=== PATIENT | female | born 1970 | race Caucasian/White ===

== ENCOUNTER → 2017-12-20 12:49 | Outpatient (REF) | payer MEDICAID, SELFPAY ==
[2017-12-20 14:05] LABS: Bilirubin Negative (Negative); Blood Negative (Negative); Clarity Sl Cloudy; Glucose Negative (Negative); Ketones Negative (Negative); Leukocyte Esterase Trace (Negative); Nitrite Negative (Negative); Urobilinogen 0.2 EU/dL (Up TO 0.2)
[2017-12-20 14:22] LABS: WBC 0-2 HPF (0-5)
[2017-12-20 14:23] LABS: Bacteria Few HPF (Negative); Casts Negative LPF (Negative); Crystals Negative HPF (Negative); Epithelial Cells Many HPF (Negative); Mucus Negative (Negative); Other Cells Few Transitional (Negative)
[2017-12-20 14:24] LABS: C & S Indicated? No/Sq. Contamination
== END ==
LOC: LBN 12:49
PROVIDERS: PCP Family Medicine; Visit Provider Family Medicine
DX: N39.41 Urge incontinence (principal)
CPT/HCPCS: 81003; 81015

== ENCOUNTER 2017-12-23 13:24 | Outpatient (RCR) | payer MEDICAID, SELFPAY ==
--- NOTE | 2017-12-18 08:45 | NT_ITS ---
12/18/17 Phoned dept to cancel today's PT appt. Has to work. Jazmine Alvarado, IMPORT DISPATCHER
--- NOTE | 2017-12-23 14:12 | PTTR_ITS ---
DATE: 12/23/17 SUBJECTIVE: Nelda states that today is a good day because I haven't had to take any Ibuprofen. She states that she is not experiencing back pain symptoms as frequently at this point. OBJECTIVE: Therapeutic procedures ([id number]). * [X] See flow sheet: Patient completed a core stabilization program, as per flow sheet. Patient was able to tolerate a slight progression in her program today, modifications made to reps are noted on flow sheet. Patient ended ther ex program on the treadmill x10 minutes via [facility]. Patient was then seem by primary therapist, Darius Meza DPT. Please see his note for specifics. * [X] Provided skilled instruction in proper exercise performance * [X] Provided skilled manual cues to facilitate proper muscle recruitment and/or movement pattern: cuing for core activation throughout session, as well as posture correction for proper exercise performance. Direct treatment time: 20 minutes Total treatment time: 30 minutes
--- NOTE | 2017-12-23 15:55 | PTTR_ITS ---
DATE: 12/23/17 SUBJECTIVE: Nelda states the integrated dry needling is very helpful with her symptoms. Has cut her Ibuprofen use about 75%. Is noting better tolerance to standing at work, only needing sporadic Ibuprofen toward the end of her shift. Made no complaints with orthotic use. Is complaining of some incontinence issues that appear to be urge incontinence. We discussed getting a referral for a consultation with SHANE Joseph. OBJECTIVE: Manual therapy: ([id number]). Lumbopelvic mobs, single and double knee to chest, bent knee fall outs as well as PA mobs to the lumbar spine. Integrated dry needling. The patient gave verbal consent for dry needling today. Homeostatic points used today: bilateral superior cluneal and inferior gluteal with 3 and posterior cutaneus of L5 with 2. Para vertebral points used today L3/4 2. Symptomatic points: bilateral glute medius and piriformis with 3 Also, received estim from L3 to L5 para vertebrals bilaterally x8 minutes. She also completed postural stabilization strengthening with the TREE [employer]. For details see her note. Direct treatment time: 15 min. Total treatment time: 30 min. Assessment: Subjective comments of improvements regarding a decrease in her symptoms of pain. Plan: Continues as indicated above progressing her stabilization to tolerance. MM/gc
== END 2018-01-17 23:59 | disposition home or self-care (01) ==
LOC: PT 13:24
PROVIDERS: PCP Family Medicine; Referring Provider Family Medicine; Visit Provider Family Medicine
DX: M54.5 Low back pain (principal); M51.16 Intervertebral disc disorders with radiculopathy, lumbar region; Z47.89 Encounter for other orthopedic aftercare
CPT/HCPCS: 97110; 97140

== ENCOUNTER → 2017-12-24 11:15 | Outpatient (REF) | payer MEDICAID, SELFPAY ==
--- NOTE | 2017-12-24 10:45 | PAPFT_PTH ---
PATIENT: Nelda Robison LOC: [facility] U#:[id number] AGE/SX: 54/F ROOM: RE12/24/[address]: Anca Robledo MD : 1970 BED: DIS: SPEC #: [id number] RECD: 12/24/17 12:52 STATUS: BARBARA REElen #: [id number] AMADEO: 12/24/17 10:[address]: Anca Robledo DEPT: [facility] Cytology RECD BY: Ale Esparza ENTERED: 12/24/17 12:53 SP TYPE: PAPFT OTHR DR: Saba Christopher MD, DC Tissues: 1 - CX/ENDOCX FOR PAP SMEARS Procedures: PAP THIN PREP/UVM Screening HPV DNA PROBE Comments: [id number]
== END ==
LOC: LBN 11:15
PROVIDERS: PCP Family Medicine; Visit Provider Obstetrics & Gynecology
DX: Z12.4 Encounter for screening for malignant neoplasm of cervix (principal); Z11.51 Encounter for screening for human papillomavirus (HPV)
CPT/HCPCS: 88142; 87624

== ENCOUNTER 2018-02-02 19:31 | Emergency (ER) | payer MEDICAID, SELFPAY ==
[2018-02-02] VITALS (34 sets, daily range): BP systolic 91–139; BP diastolic 53–93; PULSE 65–108; RESP 11–24; TEMP 36.5; O2SAT 90–96
[2018-02-02] MEDS: methylPREDNISolone SUCC 125 MG VIAL IVP (19:46)
[2018-02-02] MEDS: Normal Saline 1,000 ML 1000 ML IV (19:55)
--- NOTE | 2018-02-02 22:26 | ED.GENADUL_ITS ---
Discharge Plan Disposition Patient Disposition: HOME Discharge Details Chief Complaint: Allergic Clinical Impression: Anaphylactic reaction, Hymenoptera allergy Primary Care Provider: Saba Christopher ED Provider: Edouard Mohamud Home Meds and New Rx's Prescriptions: New prednisone 20 mg tablet 40 mg PO DAILY Qty: 8 RF: 0 epinephrine [EpiPen] 0.3 mg/0.3 mL auto-injector 0.3 mg IM ONCE Qty: 1 RF: 0 Continue albuterol sulfate 90 mcg/actuation HFA aerosol inhaler 2 puff IH Q6H PRNRF: 0 citalopram 20 mg tablet 20 mg PO DAILY RF: 0 estradiol 10 mcg insert 10 mcg VG .COMPLEX RF: 0 famotidine 40 mg tablet 40 mg PO DAILY RF: 0 fluticasone [Flovent HFA] 110 mcg/actuation HFA aerosol inhaler 2 puff IH HS RF: 0 ibuprofen 600 mg tablet 600 mg PO TID PRNRF: 0 nystatin 100,000 unit/gram powder 1 applic TP BID PRNRF: 0 omeprazole 40 mg capsule,delayed release(DR/EC) 40 mg PO DAILY RF: 0 oxybutynin chloride 10 mg tablet extended release 24hr 10 mg PO DAILY RF: 0 triamcinolone acetonide 0.1 % cream 1 applic TP BID PRNRF: 0 acyclovir 800 mg tablet 800 mg PO .COMPLEX Qty: 35 RF: 0 Discharge Instructions Instructions: Insect Bite or Sting (ED), Anaphylaxis (ED) Additional Instructions: Please take Benadryl 25 mg every 8 hours for the next 3 days. Take prednisone as prescribed. Avoid exposure to bees or wasps. Please contact your primary care physician to arrange follow-up. Return to the ER for any worsening or new concerning symptoms. Referrals: Saba Christopher MD, [place] [Primary Care Provider] - Discharge Data Discharge Date/Time-TO BE ENTERED AT DEPARTURE: 02/02/18 22:59 Medical Decision Making MDM Narrative Medical decision making narrative: 47-year-old female presents with anaphylactic reaction hymenoptera sting. Diffuse body hives, nausea,, lip swelling and scratchy sensation in her throat on arrival per Patient was assessed immediately on arrival. She was administered epinephrine intramuscularly, Solu-Medrol IV, Pepcid IV, and Benadryl IV. She was given IV fluid bolus. Patient was reassessed multiple times. Patient had significant clinical improvement and resolution of symptoms. Lips no longer swollen and no respiratory symptoms. 22:15 -patient reassessed and has remained stable now. She is requesting discharge. Usual and customary discharge instructions were provided for anaphylaxis. Patient was prescribed an EpiPen for future anaphylactic reaction , she is also prescribed a burst of prednisone and advised to take Benadryl over the next few days. She understands she should return for any recurrent or worsening symptoms. HPI - General Adult General Mode of arrival: ambulatory . Date/Time Provider Initiated Documentation: 02/02/18 19:39 . Limitations to Documentation: no limitations . Information obtained by: patient . HPI Narrative: 47-year-old female presents with chief complaint of allergic reaction. Patient notes that about an hour prior to arrival she was stung by multiple wasps. She was stung on her legs, buttock and arms. She has developed severe hives on her legs and arms. She has swelling of her lips and the sensation of scratchiness in her throat. She denies shortness of breath or wheeze. She does have some nausea. Symptoms are severe with no modifiers. Related Data Home Medications Medication Instructions Recorded Confirmed albuterol sulfate HFA 90 2 puff IH Q6H PRN 01/28/18 02/06/18 mcg/actuation aerosol inhaler citalopram 20 mg tablet 20 mg PO DAILY 01/28/18 02/06/18 estradiol 10 mcg vaginal insert 10 mcg VG .COMPLEX 01/28/18 02/06/18 famotidine 40 mg tablet 40 mg PO DAILY 01/28/18 02/06/18 fluticasone 110 mcg/actuation HFA 2 puff IH HS gm 01/28/18 02/06/18 aerosol inhaler ibuprofen 600 mg tablet 600 mg PO TID PRN 01/28/18 02/06/18 nystatin 100,000 unit/gram topical 1 applic TP BID PRN 01/28/18 02/06/18 powder omeprazole 40 mg capsule,delayed 40 mg PO DAILY 01/28/18 02/06/18 release oxybutynin chloride ER 10 mg 10 mg PO DAILY 01/28/18 02/06/18 tablet,extended release 24 hr triamcinolone acetonide 0.1 % 1 applic TP BID PRN 01/28/18 02/06/18 topical cream Previous Rx's Medication Instructions Recorded acyclovir 800 mg tablet 800 mg PO .COMPLEX #35 tab 01/30/18 epinephrine [EpiPen] 0.3 mg IM ONCE #1 each 02/02/18 prednisone 40 mg PO DAILY #8 tab 02/02/18 Allergies Allergy/AdvReac Type Severity Reaction Status Date / Time buspirone HCl [From BuSpar] AdvReac HEADACHES Verified 02/06/18 09:15 oxycodone AdvReac SYNCOPE Verified 02/06/18 09:15 General Stated Complaint: Allergic CALE: 2 Review of Systems Review of Systems All systems reviewed & are unremarkable except as noted in HPI and below ENT Reports lip swelling Cardiovascular Denies dyspnea Respiratory Denies dyspnea and Denies wheezing Gastrointestinal Reports nausea Allergic/Immunologic Reports urticaria, Reports lip swelling and Denies wheezing PFS Social History Smoking/Tobacco Use Status: Never Surgical History EGD - MAC (~05/2007) Ligation of fallopian tube Exam Const General: cooperative and no acute distress Orientation: alert and awake HENMT Head: normocephalic and atraumatic Mouth: tongue normal, moist mucous membranes, no muffled voice and other Eyes Conjunctivae: conjunctivae normal EOM: EOM intact bilaterally Neck Neck: normal visual inspection, trachea midline and No JVD Chest Chest: no tenderness Resp Effort & Inspection: normal respiratory effort Auscultation: clear to auscultation bilaterally, no rales, no rhonchi and no wheezes Cardio Rate: tachycardic Rhythm: regular rhythm Heart Sounds: no gallops, no murmurs and no rubs GI Palpation: soft and nontender Auscultation: normal bowel sounds Skin General skin exam: dry skin Rashes: rashes noted (Urticaria on her arms and legs bilaterally) Other: warm Neuro General: alert, awake, tone normal and moves all extremities Extrem General: no calf tenderness bilaterally and no pedal edema Psych Appearance: grossly normal Mental Status: mental status grossly normal Affect: normal affect Course Vital Signs Temperature 36.5 C 02/02/18 19:37 Pulse 108 H 02/02/18 19:37 Respiratory Rate 20 02/02/18 19:37 Blood Pressure 139/93 H 02/02/18 19:37 Pulse Oximetry 96 02/02/18 19:37 Temperature 36.5 C 02/02/18 19:37 Pulse 108 H 02/02/18 19:37 Respiratory Rate 20 02/02/18 19:37 Blood Pressure 139/93 H 02/02/18 19:37 Pulse Oximetry 96 02/02/18 19:37 Critical Care Time Critical Care Time: Yes Total Critical Care Time: 60 Attestation: I spent greater than 60 minutes addressing this patient's immediate life threats.
== END 2018-02-02 22:59 | disposition home or self-care (01) ==
PROVIDERS: Emergency Provider Student in an Organized Health Care Education/Training Program; PCP Family Medicine
DX: T63.461A Toxic effect of venom of wasps, accidental (unintentional), initial encounter (principal); T78.2XXA Anaphylactic shock, unspecified, initial encounter; L50.0 Allergic urticaria; R11.0 Nausea; R60.0 Localized edema; R09.89 Other specified symptoms and signs involving the circulatory and respiratory systems
CPT/HCPCS: 80048; 96361; 96372; 99285; J0171; J1200; J2930

== ENCOUNTER 2018-02-06 10:12 | Outpatient (REF) | payer MEDICAID, SELFPAY ==
--- NOTE | 2018-02-06 09:30 | CER_PTH ---
PATIENT: Nelda Robison LOC: [facility] U#:[id number] AGE/SX: 47/F ROOM: RE02/06/[address]: Dona Pryor : 1970 BED: DIS: 02/06/2018 SPEC #: [id number] RECD: 02/06/18 12:25 STATUS: BARBARA REYES #: [id number] AMADEO: 02/06/18 09:[address]: Dona Pryor DEPT: Surgical Specimen RECD BY: Ale Esparza ENTERED: 02/06/18 12:27 SP TYPE: CER OTHR DR: Saba Christopher MD, DC Tissues: 1 - CERVICAL BIOPSY 2 - CERVICAL BIOPSY Procedures: GROSS AND MICRO LEVEL 4 Comments: [id number]
== END 2018-02-06 10:32 ==
LOC: LBN 10:12
PROVIDERS: PCP Family Medicine; Visit Provider Obstetrics & Gynecology
DX: N88.8 Other specified noninflammatory disorders of cervix uteri (principal); N72 Inflammatory disease of cervix uteri; R87.610 Atypical squamous cells of undetermined significance on cytologic smear of cervix (ASC-US)
CPT/HCPCS: 88305

== ENCOUNTER 2018-04-28 11:21 | Outpatient (REF) | payer MEDICAID, SELFPAY | END 2018-04-28 11:41 | LOC: LBN 11:21 | PROVIDERS: PCP Family Medicine; Visit Provider Family Medicine | DX: R19.7 Diarrhea, unspecified (principal) | CPT/HCPCS: 87329; 87324 ==

== ENCOUNTER 2019-02-18 19:18 | Emergency (ER) | payer BC, MEDICAID, SELFPAY ==
[2019-02-18] VITALS (15 sets, daily range): BP systolic 102–155; BP diastolic 69–94; PULSE 68–80; RESP 14–20; TEMP 36.5; O2SAT 94–98
--- NOTE | 2019-02-18 19:32 | ED.GENADUL_ITS ---
Discharge Plan Disposition Patient Disposition: HOME Condition: Fair Discharge Details Chief Complaint: Chest Pain Clinical Impression: Atypical chest pain, Grieving, Anxiety, Dehydration Primary Care Provider: Saba Christopher ED Provider: Nicolette Bello Home Meds and New Rx's Prescriptions: Continued albuterol sulfate 90 mcg/actuation HFA aerosol inhaler 2 puff IH Q6H PRNRF: 0 nystatin 100,000 unit/gram powder 1 applic TP BID PRNRF: 0 Flovent HFA 110 mcg/actuation HFA aerosol inhaler 2 puff IH HS Qty: 12 RF: 3 epinephrine [EpiPen] 0.3 mg/0.3 mL auto-injector 0.3 mg IM ONCE Qty: 1 RF: 0 famotidine 40 mg tablet 40 mg PO DAILY Qty: 30 RF: 6 omeprazole 40 mg capsule,delayed release(DR/EC) 40 mg PO DAILY Qty: 90 RF: 4 estradiol 10 mcg insert 10 mcg VG .COMPLEX Qty: 24 RF: 5 triamcinolone acetonide 0.5 % cream 1 applic TP BID PRN (Reason: rash on abdomen) Qty: 80 RF: 0 acyclovir 800 mg tablet 800 mg PO .COMPLEX Qty: 35 RF: 0 lorazepam 1 mg tablet 1 mg PO QHS PRN (Reason: sleep) Qty: 10 RF: 0 ibuprofen 600 mg tablet 600 mg PO TID PRN (Reason: pain) Qty: 90 RF: 0 citalopram 20 mg tablet 20 mg PO DAILY Qty: 90 RF: 0 oxybutynin chloride 5 mg Tablet 5 mg PO DAILY RF: 0 Discharge Instructions Instructions: Chest Pain (ED), Anxiety (ED) Additional Instructions: Encourage hydration.. You will need follow-up with your primary care within the next week. Please discuss your decreased kidney function.. Labs and imaging are reassuring today. Try to slow down your breathing when you begin having these attacks, breathing through your nose and out through your mouth. If you develop increased chest pain, inability to stay hydrated, shortness of breath or the new/worsening symptoms please seek care urgently once again.. Stand Alone Forms: Work Release Referrals: Saba Christopher MD, [place] [Primary Care Provider] - Discharge Data Discharge Date/Time-TO BE ENTERED AT DEPARTURE: 02/18/19 21:57 Medical Decision Making <Juan Francisco Reilly DO - Last Filed: 02/18/19 19:42> EKG 19: 32 Rate 80, intervals normal, sinus rhythm, no significant ST elevation or depression, no significant T wave inversions, no evidence of STEMI <ZOË Yeager - Last Filed: 02/20/19 09:12> Patient is a 48-year-old female with history of depression, sciatica, neuro, hyperlipidemia, hiatal hernia, GERD, anemia. She is presenting today, accompanied by her daughter, with chief complaint of intermittent episodes of chest heaviness, diaphoresis, shortness of breath. States these typically come on during periods of rest such as prior to going to sleep at night, when standing in line at a store. She does correlate this with the recent loss of her significant other. She denies any chest pain this time. Does find that typically when she is interactive with other people, she does not have same symptoms. She does report that she is a good support team during her grieving process. Has been in touch with her primary care. However, as the symptoms have persisted, she was advised to seek care in the emergency department at this time. She reports a low level of queasiness. No abdominal pain. Denies any recent travel. No fevers or chills. Pain in the chest does not radiate when this does occur. She reports that this typically lasts for 30 minutes or so. Does not have a defining act that helps to have symptoms subside. Her history is most concerning for possible psychologic etiology such as panic attacks, anxiety during her grieving process. She does report that she has been feeling anxious and agrees to anxiety lytic at this time. Her exam is reassuring with good cardiovascular respiratory exam. She denies any suicidal or homicidal ideation. While her symptoms are most likely a nonacute cardiac s ymptoms, feel that labs and chest x-ray are appropriate at this time. Discussed this plan with the patient was in agreement. Chest x-ray was reviewed by radiologist: FINDINGS: Lungs: The lung volumes are low, which causes crowding of the lung bases. No focal consolidation or atelectasis seen. Pleural space: Unremarkable. No pleural effusion. No pneumothorax. Heart/Mediastinum: Unremarkable. No cardiomegaly. Bones/joints: Unremarkable. IMPRESSION: No acute intrathoracic pathology identified. Labs reviewed by myself. Patient does not have any leukocytosis. She does have a history of anemia and this does not seem to be acutely an issue. Normal electrolytes. Her creatinine is slightly elevated at 1.1. I discussed this with the patient and she does report that she has had diminished hydration. She is hydrating well here. Troponin is less than 0.05. Discussed these various findings with the patient and her daughter. At this point, I feel this is a reaction to the grieving process. Her symptoms are not exertional. She is currently asymptomatic. We discussed methods on how to cope with when her anxiety begins to peak and she becomes symptomatic. She is feeling improved after anxiety lytic. She is hydrating. Advised she will need follow-up with her primary care and reassessment of her kidney function. She will call them tomorrow to schedule close follow-up. She was given strict return precautions. All of her questions and concerns were addressed and she is in agreement this plan. HPI <Juan Francisco Reilly, - Last Filed: 02/18/19 19:42> General Date/Time Provider Initiated Documentation: 02/18/19 19:32 . Related Data Home Medications Medication Instructions Recorded Confirmed albuterol sulfate 90 mcg/actuation 2 puff IH Q6H PRN 01/28/18 02/18/19 aerosol inhaler nystatin 100,000 unit/gram topical 1 applic TP BID PRN 01/28/18 02/18/19 powder fluticasone propionate 110 2 puff IH HS #12 gm 05/19/18 02/18/19 mcg/actuation HFA aerosol inhaler epinephrine 0.3 mg/0.3 mL 0.3 mg IM ONCE #1 each 09/22/18 02/18/19 injection, auto-injector famotidine 40 mg tablet 40 mg PO DAILY #30 tab 10/09/18 02/18/19 omeprazole 40 mg capsule,delayed 40 mg PO DAILY #90 cap 11/18/18 02/18/19 release estradiol 10 mcg vaginal insert 10 mcg VG .COMPLEX #24 insert 11/25/18 02/18/19 triamcinolone acetonide 0.5 % 1 applic TP BID PRN #80 gm 01/21/19 02/18/19 topical cream acyclovir 800 mg tablet 800 mg PO .COMPLEX #35 tab 02/03/19 02/18/19 lorazepam 1 mg tablet 1 mg PO QHS PRN #10 tab 02/03/19 02/18/19 citalopram 20 mg tablet 20 mg PO DAILY #90 tab 02/16/19 02/18/19 ibuprofen 600 mg tablet 600 mg PO TID PRN #90 tab 02/16/19 02/18/19 oxybutynin chloride 5 mg PO DAILY 02/18/19 02/18/19 Previous Rx's Medication Instructions Recorded fluticasone propionate 110 2 puff IH HS #12 gm 05/19/18 mcg/actuation HFA aerosol inhaler epinephrine 0.3 mg/0.3 mL 0.3 mg IM ONCE #1 each 09/22/18 injection, auto-injector famotidine 40 mg tablet 40 mg PO DAILY #30 tab 10/09/18 omeprazole 40 mg capsule,delayed 40 mg PO DAILY #90 cap 11/18/18 release estradiol 10 mcg vaginal insert 10 mcg VG .COMPLEX #24 insert 11/25/18 triamcinolone acetonide 0.5 % 1 applic TP BID PRN #80 gm 01/21/19 topical cream acyclovir 800 mg tablet 800 mg PO .COMPLEX #35 tab 02/03/19 lorazepam 1 mg tablet 1 mg PO QHS PRN #10 tab 02/03/19 citalopram 20 mg tablet 20 mg PO DAILY #90 tab 02/16/19 ibuprofen 600 mg tablet 600 mg PO TID PRN #90 tab 02/16/19 Allergies Allergy/AdvReac Type Severity Reaction Status Date / Time buspirone HCl [From BuSpar] AdvReac HEADACHES Verified 02/18/19 19:33 oxycodone AdvReac SYNCOPE Verified 02/18/19 19:33 <ZOË Yeager - Last Filed: 02/20/19 09:12> General Mode of arrival: ambulatory . Limitations to Documentation: no limitations . Information obtained by: patient, family and RN notes reviewed . HPI Narrative: Patient is a 48 year old female with hx of depression, neuropathy, insomnia, hyperlipidemia, GERD, anemia with c/c of CP and SOB intermittently over the past week. States that symptoms come on when at rest, particularly when going to be at night. Has had times where she experiences paresthesias, diaphoresis. She reports that her signficant other 2 weeks ago. It was approximately 1 week ago that sympatoms began, shortly after she returned to work. Denies symptoms acitvely. No calf tenderness. No recent travel. Patient is post menopausal. General Stated Complaint: Chest Pain CALE: 2 <ZOË Yeager - Last Filed: 02/20/19 09:12> Constitutional Constitutional: Reports as per HPI, Denies chills, Reports fatigue, Denies fever(s), Denies headache(s), Denies lethargy and Denies poor appetite Eyes Eyes: Denies change in vision ENT Ears, Nose, Mouth, and Throat: Denies dizziness and Denies headache(s) Cardiovascular Cardiovascular: Reports as per HPI, Reports chest pain, Reports chest pain at rest, Denies chest pain with activity, Reports dyspnea (what she has these attacks of symtoms has dyspnea, CP, diaphorese, tremulou) and Denies dyspnea on exertion Respiratory Respiratory: Reports as per HPI, Denies chest congestion, Denies cough, Denies pain on inspiration, Denies pain with cough, Reports dyspnea (what she has these attacks of symtoms has dyspnea, CP, diaphorese, tremulou), Denies dyspnea on exertion and Denies wheezing Gastrointestinal Gastrointestinal: Reports as per HPI, Denies abdominal pain, Denies diarrhea, Denies nausea and Denies vomiting Musculoskeletal Musculoskeletal: Reports as per HPI and Denies back pain Integumentary/Breasts Skin/Breast: Reports as per HPI and Denies rash Neurologic Neurologic: Reports as per HPI, Denies dizziness and Denies headache(s) Psychiatric Psychiatric: Denies hallucinations, Denies homicidal ideation and Denies suicidal ideation Endocrine Endocrine: Reports fatigue Allergic/Immunologic Allergic/Immunologic: Denies wheezing PFSH <Juan Francisco Reilly DO - Last Filed: 02/18/19 19:42> Surgical History EGD - MAC (~05/2007) Ligation of fallopian tube Social History Smoking/Tobacco Use Status: Never Alcohol Intake: current Alcohol Intake frequency: holidays/special occasions only Drug use: Never Substance use type: does not use Seatbelt use: always Do you feel safe at home: Yes Do you feel safe in your relationship?: Yes History History 5 Para Hx # Term Pregnancies 3 Multiple births Hx # Pregnancies Ectopic pregnancies AB induced Hx Number of Living Children AB spontaneous <ZOË Yeager - Last Filed: 02/20/19 09:12> Const General: cooperative, healthy appearing, comfortable, no acute distress and well developed Nutritional Appearance: well nourished and overweight Orientation: alert, awake and oriented x3 HENMT Head: normal to inspection Ears: hearing grossly normal bilaterally Mouth: moist mucous membranes Chest Chest: normal inspection of the chest, normal palpation of entire chest wall and no crepitus Resp Effort & Inspection: normal respiratory effort, able to speak in complete sentences and no respiratory distress Auscultation: clear to auscultation bilaterally, no rales, no rhonchi and no wheezes Cardio Rate: regular rate Rhythm: regular rhythm Heart Sounds: S1 normal and S2 normal GI Inspection: normal to inspection, no edema and non-distended Palpation: soft, no hepatosplenomegaly, not firm, no guarding, not rigid and nontender Auscultation: normal bowel sounds Back/Spine/Pelvis Back: no CVA tenderness Thoracic/Lumbar Spine: thoracic and lumbar spine normal to inspection Skin General skin exam: no rashes or lesions noted Trauma: no lacerations or abrasions Neuro General: alert, awake and oriented x3 Cognition: normal cognition Speech: speech normal Gait: normal gait Extrem General: normal to inspection, normal capillary refill, no pedal edema, no calf tenderness and normal gait Psych Appearance: grossly normal and well kempt Mental Status: mental status grossly normal Speech and Movement: speech and movement normal <ZOË Yeager - Last Filed: 02/20/19 09:12> Vital Signs Vital signs: Vital Signs Temperature 36.5 C 02/18/19 19:23 Pulse 77 02/18/19 19:23 Respiratory Rate 16 02/18/19 19:23 Blood Pressure 139/76 02/18/19 19:23 Pulse Oximetry 98 02/18/19 19:23 Temperature 36.5 C 02/18/19 19:23 Temperature Source Tympanic 02/18/19 19:23 Pulse 77 02/18/19 19:23 Respiratory Rate 16 02/18/19 19:23 Blood Pressure 139/76 02/18/19 19:23 Pulse Oximetry 98 02/18/19 19:23 Oxygen Delivery Method Room Air 02/18/19 19:23 Oxygen Flow Rate 0 02/18/19 19:23 Pain Level 0 02/18/19 19:23
[2019-02-18 20:16] LABS: Abs Immature Grans 0.02 k/cumm (0.0-0.09); Absolute Basophil Count 0.02 k/cumm (0.0-0.2); Absolute Eosinophil Count 0.24 k/cumm (0.0-0.7); Absolute Lymphocyte Count 2.11 k/cumm (1.2-3.4); Absolute Monocyte Count 0.51 k/cumm (0.11-0.7); Absolute Neutrophil Count 5.94 k/cumm (1.2-6.7); Basophils % 0.2; Eosinophils % 2.7; HCT 39.8 % (36.0-46.0); HGB 13.5 g/dL (12.0-15.5); Immature Grans % 0.2; Lymphocytes % 23.9; Mean Corp. HGB Concentration 33.9 g/dL (32.0-36.0); Mean Corpuscular Hemoglobin 30.8 pg (27.0-33.0); Mean Corpuscular Volume 90.7 fL (80-95); Mean Platelet Volume 8.8 fL (8.0-11.0); Monocytes % 5.8; Neutrophils % 67.2; Platelet Count 350 x1000/uL (130-400); RBC 4.39 m/cumm (4.00-5.20); RBC Distribution Width 13.1 % (11.7-14.6); White Blood Cell Count 8.84 k/cumm (4.4-10.8)
--- NOTE | 2019-02-18 20:17 | DI.RAD_ITS ---
EXAM: XR CHEST 2V PA LATERAL INDICATION: CP. COMPARISON: CHEST 2 VIEWS PA,LAT from 05/09/2012 TECHNIQUE: 2D digital imaging was performed. FINDINGS: There is a poor inspiration. Slight elevation of the diaphragm noted on the right unchanged from exa mination April 2012. Lungs are clear. Cardiac size within normal limits. No pleural effusion se en. IMPRESSION: No evidence of acute process.
--- NOTE | 2019-02-18 20:24 | DI.VRAD_ITS ---
PROCEDURE INFORMATION: Exam: XR Chest, 2 Views Exam date and time: 02/18/2019 8:17 PM Clinical history: 48 years old, female; Chest pain; Type not specified TECHNIQUE: Imaging protocol: XR of the chest Views: 2 views. COMPARISON: No relevant prior studies available. FINDINGS: Lungs: The lung volumes are low, which causes crowding of the lung bases. No focal consolidation or atelectasis seen. Pleural space: Unremarkable. No pleural effusion. No pneumothorax. Heart/Mediastinum: Unremarkable. No cardiomegaly. Bones/joints: Unremarkable. IMPRESSION: No acute intrathoracic pathology identified. Dictated and Authenticated by: Keri Moore MD. Ordering:ROBBIN Will MD
[2019-02-18 20:27] LABS: ALT 38 U/L (14-59); AST 12 U/L (15-37); Alkaline Phosphatase 72 U/L (46-116); BUN 14 mg/dL (7-18); Bilirubin, Total 0.3 mg/dL (0.2-1.0); Calcium 9.1 mg/dL (8.5-10.1); Chloride 102 mmol/L (98-107); Estimated GFR 52.58 (mL/min/1.73m2); Glucose 95 mg/dL (70-100); Magnesium 2.2 mg/dL (1.8-2.4); Potassium 3.6 mmol/L (3.5-5.1); Sodium 140 mmol/L (136-145)
[2019-02-18 20:46] LABS: Troponin I < 0.05 ng/mL (0.00-0.06)
[2019-02-18] MEDS: LORazepam 2 MG/ML VIAL 0.5 MG IVP (21:31)
== END 2019-02-18 21:57 | disposition home or self-care (01) ==
PROVIDERS: Emergency Provider Physician Assistant; PCP Family Medicine
DX: R07.89 Other chest pain (principal); E86.0 Dehydration; F41.9 Anxiety disorder, unspecified
CPT/HCPCS: 36415; 80053; 93005; 96361; 96374; 99285; 71046; 83735; 84484; 85025; 93010; J2060

== ENCOUNTER 2019-05-06 10:18 | Outpatient (REF) | payer BC, MEDICAID, SELFPAY ==
--- NOTE | 2019-05-06 09:50 | PAPFT_PTH ---
PATIENT: Nelda Robison LOC: [facility] U#:[id number] AGE/SX: 48/F ROOM: RE05/06/[address]: Sophia Alvarez NP : 1970 BED: DIS: 05/06/2019 SPEC #: [id number] RECD: 05/06/19 12:50 STATUS: BARBARA REElen #: [id number] AMADEO: 05/06/19 09:[address]: Sophia Alvarez NP DEPT: [facility] Cytology RECD BY: Ale Esparza ENTERED: 05/06/19 12:50 SP TYPE: PAPFT CAMMY DR: Saba Christopher MD, DC Tissues: 1 - CX/ENDOCX FOR PAP SMEARS Procedures: PAP THIN PREP/UVM Screening HPV DNA PROBE Comments: [id number]
== END 2019-05-06 10:38 ==
LOC: LBN 10:18
PROVIDERS: PCP Family Medicine; Visit Provider Nurse Practitioner Women's Health
DX: N89.8 Other specified noninflammatory disorders of vagina (principal); Z12.4 Encounter for screening for malignant neoplasm of cervix
CPT/HCPCS: 88142; 87480; 87510; 87624; 87660

== ENCOUNTER 2019-05-25 12:53 | Outpatient (REF) | payer MEDICAID, SELFPAY ==
--- NOTE | 2019-05-25 11:55 | CER_PTH ---
PATIENT: Nelda Robison LOC: [facility] U#:[id number] AGE/SX: 48/F ROOM: RE05/25/[address]: Yash Driscoll MD : [id number] BED: DIS: 05/25/2019 SPEC #: [id number] RECD: 05/25/19 12:58 STATUS: BARBARA REYES #: [id number] AMADEO: 05/25/19 11:[address]: Yash Driscoll DEPT: Surgical Specimen RECD BY: Ale Esparza ENTERED: 05/25/19 12:59 SP TYPE: CER OTHR DR: Saba Crhistopher MD, DC Tissues: 1 - CERVICAL BIOPSY 2 - ENDOCERVICAL BX/CURRETTE 3 - CERVICAL BIOPSY 4 - CERVICAL BIOPSY Procedures: GROSS AND MICRO LEVEL 4 Comments: [id number]
== END 2019-05-25 13:13 ==
LOC: LBN 12:53
PROVIDERS: PCP Family Medicine; Visit Provider Obstetrics & Gynecology
DX: N72 Inflammatory disease of cervix uteri (principal); N87.9 Dysplasia of cervix uteri, unspecified; Z87.42 Personal history of other diseases of the female genital tract
CPT/HCPCS: 88305

== ENCOUNTER 2019-06-16 10:04 | Outpatient (CLI) | payer MEDICAID, SELFPAY ==
--- NOTE | 2019-06-16 09:45 | DI.RAD_ITS ---
EXAM: XR THORACIC SPINE COMPLETE INDICATION: thoracic pain, M54.6. COMPARISON: No exams were available for comparison TECHNIQUE: 2D digital imaging was performed. FINDINGS: There is no evidence of compression fracture. There are endplate osteophytes throughout, greatest on the right in the midthoracic region. There is also a mild biconvex scoliosis. Visualized portions of the lungs are clear. IMPRESSION: Degenerative disc changes and mild scoliosis.
== END 2019-06-16 10:24 ==
PROVIDERS: PCP Family Medicine; Visit Provider Family Medicine
DX: M54.6 Pain in thoracic spine (principal); M50.30 Other cervical disc degeneration, unspecified cervical region; M25.78 Osteophyte, vertebrae
CPT/HCPCS: 72072

== ENCOUNTER 2019-06-19 06:19 | Outpatient (CLI) | payer BC, MEDICAID, SELFPAY ==
--- NOTE | 2019-06-19 08:51 | DI.US_ITS ---
EXAM: US ABDOMEN CLINICAL HISTORY: epigastric pain,abd pain,r10.9 TECHNIQUE: Ultrasound performed using standard protocol. COMPARISON: ABDOMEN ULTRASOUND (P) from 09/29/2015 FINDINGS: The liver is incompletely visualized due to the patient's body habitus and to decreased through trans mission through an echogenic liver, the findings are suggestive of hepatic steatosis. No focal hepat ic lesion identified in the visualized liver. The gallbladder is unremarkable in appearance. No roly iary dilatation. Pancreas appears intact as visualized. Spleen is unremarkable. Kidneys are unremarkable with no evidence of hydronephrosis or nephrolithiasis. Abdominal aorta and IVC are of normal diameter. IMPRESSION: Probable hepatic steatosis. The examination is otherwise unremarkable.
== END 2019-06-19 06:39 ==
PROVIDERS: PCP Family Medicine; Visit Provider Family Medicine
DX: R10.13 Epigastric pain (principal); R10.9 Unspecified abdominal pain; K76.0 Fatty (change of) liver, not elsewhere classified
CPT/HCPCS: 76700

== ENCOUNTER 2019-07-01 02:41 | Outpatient (CLI) | payer BC, MEDICAID, SELFPAY ==
[2019-07-01] MEDS: Inhaler, Assist Device 1 EACH MC (08:51)
[2019-07-01] MEDS: Albuterol HFA 18 GM 200 PUFF INH IH (08:51)
--- NOTE | 2019-07-01 10:03 | PFT_ITS ---
PULMONARY FUNCTION TEST REPORT DATE OF SERVICE: July 01, 2019 REQUESTING PROVIDER: Saba Christopher M.D. Spirometry shows no evidence of obstructive airways disease, no bronchodilator response. Lung volumes show no evidence of restriction. Diffusion capacity normal. Airways resistance normal. IMPRESSION: Normal pulmonary function study. Clinical correlation recommended. When this study was compared to previous one from 06/09/12, the patient has a total of 180 cc's decline in FVC and a 500 cc's improvement in FEV1. Clinical correlation recommended. SHAKIRA/roc D/
== END 2019-07-01 03:01 ==
PROVIDERS: PCP Family Medicine; Visit Provider Family Medicine
DX: R05 Cough (principal); R06.2 Wheezing; R07.89 Other chest pain; J45.909 Unspecified asthma, uncomplicated
CPT/HCPCS: 94060; 94726; 94729

== ENCOUNTER 2019-07-06 10:09 | Day surgery (SDC) | payer MEDICAID, SELFPAY ==
--- NOTE | 2019-07-06 07:07 | W.COLOREPORT ---
Date of service: 07/06/19 Colonoscopy Report Date of procedure: 07/06/19 Pre-op diagnosis general: Colon Cancer Screening Procedure: Colonoscopy Surgeon: Kourtney Dillon Anesthesia proc note operative: other (General/ ASA /) Complications: None Disposition: other (General/ ASA /) Indications: 48 y/o female with history of GERD and over active bladder presents for her first colonoscopy screening pre-op. She denies a family history of colon cancer. She denies any changes in bowel habits including bloody or black tarry stools, abdominal pain, diarrhea or constipation. She denies constitutional symptoms. Risks, benefits and complications have been reviewed. Complications include but are not limited to bleeding, pain, perforation, missed small lesion/polyp, sore throat, aspiration and adverse reaction to the medications. Questions were entertained and answered to their satisfaction and they wished to proceed. No guarantees were given or implied. Prep: Miralax/Dulcolax Procedure Description: After informed consent was obtained the patient was taken to the procedure room and placed in a left decubitous position. Monitors were applied and a time out was done. The patients name, date of , procedure, allergies to medications and metal in their body was reviewed. The patient was then sedated. Once sedated and comfortable a rectal exam was done. External exam was normal. Internal exam revealed a normal sphincter tone and no palpable masses. The scope was then introduced and retro-flexed. [] internal hemorrhoids were identified. The scope was then advanced to the cecum [] difficulty. The TI and appendiceal orifice were identified. The prep was []. The scope was then slowly retracted over [] minutes back into the rectum. Polyps were removed at []. The scope was removed and the patient was woken up and taken back to Same day surgery in stable condition. The patient tolerated the procedure well and there were no immediate complications. Follow up: The patient should follow up in [] years unless they develop changes in bowel habits or other new gastrointestinal complaints.
--- NOTE | 2019-07-06 07:10 | W.PM.DSUDISC ---
Discharge Plan Disposition Patient Disposition: HOME Condition: Good Discharge Details Reason For Visit: Colon Cancer Screening Attending Provider: Kourtney Dillon Primary Care Provider: Saba Christopher Home Meds and New Rx's Prescriptions: Continued acyclovir 800 mg tablet 800 mg PO .COMPLEX RF: 0 mirabegron 50 mg tablet extended release 24 hr 50 mg PO DAILY Qty: 90 RF: 4 nystatin 100,000 unit/gram powder 1 applic TP BID PRN (Reason: yeast) Qty: 60 RF: 5 escitalopram oxalate 20 mg tablet 20 mg PO DAILY Qty: 90 RF: 4 betamethasone dipropionate 0.05 % ointment 1 applic TP BID PRN (Reason: skin irritation) Qty: 15 RF: 3 epinephrine [EpiPen] 0.3 mg/0.3 mL auto-injector 0.3 mg IM ONCE Qty: 1 RF: 0 estradiol 10 mcg insert 10 mcg VG .COMPLEX Qty: 24 RF: 5 omeprazole 40 mg capsule,delayed release(DR/EC) 40 mg PO DAILY Qty: 90 RF: 4 triamcinolone acetonide 0.5 % cream 1 applic TP BID PRN (Reason: rash on abdomen) Qty: 80 RF: 0 ibuprofen 600 mg tablet 600 mg PO TID PRN (Reason: pain) Qty: 90 RF: 0 albuterol sulfate 90 mcg/actuation HFA aerosol inhaler 2 puff IH Q6H PRN (Reason: bronchospasm) Qty: 18 RF: 11 famotidine 40 mg tablet 40 mg PO DAILY Qty: 30 RF: 6 diclofenac sodium [Voltaren] 1 % gel 4 gm TP QID Qty: 100 RF: 3 Flovent HFA 110 mcg/actuation HFA aerosol inhaler 2 puff IH HS Qty: 12 RF: 3 budesonide-formoterol [Symbicort] 80-4.5 mcg/actuation HFA aerosol inhaler 2 puff IH BID Qty: 10.2 RF: 3 Discontinued polyethylene glycol 3350 17 gram/dose powder 238 g PO ONCE Qty: 238 RF: 0 bisacodyl [Dulcolax (bisacodyl)] 5 mg tablet,delayed release (DR/EC) 5 mg PO ONCE Qty: 4 RF: 0 Discharge Instructions Additional Instructions: Findings: Follow up: Please call if you develop: fevers >101.5 Nausea or Vomiting Abdominal pain that is not transient DAY SURGERY UNIT POST ENDOSCOPY INSTRUCTIONS 1. Because there will be medication in your system for the next 24 hours, you may feel a little sleepy. Your coordination will be affected. Therefore: a. Do not drive or operate dangerous equipment for 24 hours. b. Do not drink alcohol beverages for 24 hours (not even beer). c. Plan to go home and rest for the day. 2. Generally there are no restrictions on your activity after a day or so has gone by, but you may feel a bit fatigued for a few days. 3 After you arrive home you may have a light meal and return to a normal diet as you can tolerate it without feeling sick to your stomach. 4. After surgery, you may feel pain or discomfort. This should be only transient, but if it persists please contact your doctor. 5. If there are any questions regarding the findings of your procedure, please feel free to contact your doctor. 6. If you are unable to contact your doctor with a problem, contact the hospital at [phone]. 7. Continue all your regular medications unless directed otherwise. I understand the above instructions and have no questions. Signature of Patient or Responsible Adult Escort Date/Time Name of Responsible Adult Escort Signature of Nurse Date/Time Activity:: Activity as Tolerated Diet:: As Tolerated
== END 2019-07-06 10:29 | disposition home or self-care (01) ==
PROVIDERS: PCP Family Medicine; Visit Provider Surgery
DX: Z12.11 Encounter for screening for malignant neoplasm of colon (principal); Z53.9 Procedure and treatment not carried out, unspecified reason; Y66 Nonadministration of surgical and medical care

== ENCOUNTER 2019-07-08 02:24 | Outpatient (CLI) | payer BC, MEDICAID, SELFPAY ==
[2019-07-08] MEDS: Barium Sulfate 60% W/V 355 ML BTL PO (10:00)
--- NOTE | 2019-07-08 10:01 | DI.RAD_ITS ---
EXAM: RF BARIUM SWALLOW CLINICAL HISTORY: epigastric pain K44.9 DIAPHRAGMATIC HERNIA W/O OBSTRUCTION, R52, PAIN TECHNIQUE: 2D and realtime digital imaging was performed. Fluoro time: 1.41 sec CONTRAST MATERIAL: Oral barium contrast was administered. COMPARISON: XR CHEST 2V PA LATERAL from 02/18/2019 FINDINGS: Chest x-ray shows heart and pulmonary vasculature are within normal limits. The lungs are clear. No pleural effusion or pneumothorax is identified. Esophagus: The esophagus is patent with no evidence for erosions, fold thickening, strictures, or ma sses. With regards to the motility, there is a normal primary stripping wave. No tertiary contraction s were noted. There is a small hiatal hernia. No gastroesophageal reflux was identified. IMPRESSION: Normal esophogram
== END 2019-07-08 02:44 ==
PROVIDERS: PCP Family Medicine; Visit Provider Family Medicine
DX: R10.13 Epigastric pain (principal); K44.9 Diaphragmatic hernia without obstruction or gangrene
CPT/HCPCS: 74221; J3490

== ENCOUNTER 2019-07-12 01:30 | Outpatient (CLI) | payer BC, MEDICAID, SELFPAY ==
--- NOTE | 2019-07-12 11:30 | DI.US_ITS ---
APPROVED REPORT EXAM: Comprehensive 2D, Doppler, and color-flow Echocardiogram Patient Location: Out-Patient Supervisor Compressed Yeast: Evie Zafar RDCS (AE) Indications: Fatigue, Chest pain Conclusion Left Ventricle : The left ventricle is normal size. The left ventricular systolic function is normal. The left ventricular ejection fraction is within the normal range. There is normal left ventricular wall thickness. There is normal LV segmental wall motion. The left ventricular diastolic function is normal. LVEF is 65-70%. Right Ventricle : The right ventricle is normal size. The right ventricular systolic function is norm al. Atria : The left atrium size is normal. The right atrium size is normal. Aortic Valve : Aortic valve is trileaflet. No aortic regurgitation is present. Mitral Valve : The mitral valve is normal in structure. Trace mitral regurgitation. No evidence of mi tral valve stenosis. Great Vessels : The IVC was not visualized. There is no prior echocardiogram available for comparison. Wall motion Left Ventricle The left ventricle is normal size. The left ventricular systolic function is normal. The left ventric ular ejection fraction is within the normal range. There is normal left ventricular wall thickness. T here is normal LV segmental wall motion. The left ventricular diastolic function is normal. LVEF is 6 5-70%. Right Ventricle The right ventricle is normal size. The right ventricular systolic function is normal. Atria The left atrium size is normal. The right atrium size is normal. Aortic Valve Aortic valve is trileaflet. No aortic regurgitation is present. Mitral Valve The mitral valve is normal in structure. No evidence of mitral valve stenosis. Trace mitral regurgita tion. Tricuspid Valve The tricuspid valve is normal in structure. There is no tricuspid valve stenosis. Trace tricuspid reg urgitation. Pulmonic Valve Pulmonic valve is not well visualized. There is no pulmonic valvular stenosis. Trace pulmonic regurgi tation. Great Vessels The aortic root is normal in size. The ascending aorta is normal in size. The IVC was not visualized. Pericardium No pericardial effusion. 2D Dimensions IVSD d PLAX 1.02 cm F: 0.6-1.0 LV Vol A2C d MOD 106.0 mL LVPW d PLAX 1.02 cm F: 0.6 - 1.0 LV Vol A4C d MOD 103.1 mL LVID d PLAX 4.47 cm F: 3.8 - 5.2 LA vol/ BSA A2C s A-L 22.4 mL/m2 LVDs 2.85 cm F: 2.2 - 3.5 LA vol/ BSA A4C s A-L 13.1 mL/m2 Ao Root d 3.53 cm F: 2.7 - 3.3 LA Vol/ BSA Biplane s A-L 17.7 mL/m2 RA Area A4C 12.40 cm2 LA Area A4C s MOD 11.45 cm2 RA Vol/ BSA A4C s A-L 13.7 mL/m2 LA Area A2C s MOD 15.46 cm2 LV EF Teichholz 64.9 % LV EF A4C MOD 62.6 % LVEF (Negrete's) 55.10 % F: 54 - 74 LV EF A2C MOD 45.8 % LV Volume 82.91 mL F: 46 - 106 LV EF Biplane MOD 55.1 % LV Volume Index 41.24 mL/m2 F: 29 - 61 LV Vol Biplane MOD 110.9 mL FS 35.30 % LV Diastology MV E' medial 0.069 (>0.07 m/s) E/A Ratio 1.0 LV E/e MED 12.00 (<14) MV E Vmax 0.83 (0.4-1.3 m/s) MV E' lateral 0.080 (>0.1 m/s) MV A Vmax 0.85 (0.4-1.3 m/s) LV E/e LAT 10.35 (<14) MV E/A Ratio 0.98 MV E/E' medial 12.00 MV E/E' lateral 10.39 Aortic Valve LVOT Vmax 1.00 m/s LVOT Mean Clifford. 0.66 m/s LVOT Peak Grad 4.0 mmHg LVOT Mean Grad 2.0 mmHg LVOT VTI 0.215 m AoV Vmax 1.16 (0.5-1.3 m/s) Velocity Ratio 0.86 AoV Mean Clifford. 0.83 m/s AoV Peak Grad 5.4 mmHg AoV Mean Grad 3.0 (<5 mmHg) AoV VTI 0.231 (0.18-0.25 m) Mitral Valve MV DT 238 (160-240 msec) MV PHT 69 msec MV Area PHT 3.19 cm2 MV VTI 0.211 m Pulmonary Valve PV Vmax 1.20 (0.5-1.5 m/s) PV Peak Grad 5.7 mmHg PV Mean Grad 2.7 mmHg PV VTI 0.215 m Tricuspid Valve TR Peak Grad 22.2 mmHg TR Vmax 2.36 m/s
== END 2019-07-12 01:50 ==
PROVIDERS: PCP Family Medicine; Visit Provider Family Medicine
DX: R53.83 Other fatigue (principal); R07.9 Chest pain, unspecified; I34.0 Nonrheumatic mitral (valve) insufficiency
CPT/HCPCS: 93306

== ENCOUNTER 2019-08-06 19:37 | Outpatient (REF) | payer BC, MEDICAID, SELFPAY | END 2019-08-06 19:57 | LOC: LBN 19:37 | PROVIDERS: PCP Family Medicine; Visit Provider Family Medicine | DX: N76.0 Acute vaginitis (principal) | CPT/HCPCS: 87480; 87510; 87660 ==

== ENCOUNTER 2019-08-10 01:29 | Outpatient (CLI) | payer BC, MEDICAID, SELFPAY ==
--- NOTE | 2019-08-10 11:00 | ETT_ITS ---
APPROVED REPORT Exam: Exercise Treadmill Patient Location: Out-Patient Room/Bed: Stress Nurse: Valentina Hernandez RN BMI: 39.14 Baseline Rhythm: Sinus Rhythm Indications: Patient reports intermittent chest heaviness and right chest ???tingling??? for the last ???couple of months???. Of note patient???s significant other approximately 6 months ago. Medical History Medical History: GERD Cardiac Medications: None, Allergies: BuSpar, Oxycodone. Cardiac Risk Factors: Hyperlipidemia Previous Cardiac Procedures: None Pretest Chest Pain Characteristics: None Exercise History: Physically active Physical Disabilities: None Lung Sounds: Clear to auscultation Heart Sounds: Regular Stress Test Details Test: Exercise stress testing was performed using a Yvon protocol. Rest Stress HR Resting HR Supine: 80 bpm Max Heart Rate (APMHR): 170 bpm Resting HR Standin bpm Target HR (85% APMHR): 144 bpm Max HR Achieved: 154 bpm % of APMHR: 90 HR response to stress: Normal HR response to stress BP Resting BP Supine: 130/96 mmHg Resting BP Standin/90 mmHg Max BP: 160/90 mmHg BP response to stress: Normal blood pressure response to stress. ECG Resting ECG: Sinus Rhythm Stress ECG: Sinus Tachycardia ST Change: Normal Arrhythmia: None Recovery ECG: Sinus Rhythm Recovery ST Change: Normal Recovery Arrhythmia: None Clinical Reason for Termination: Fatigue Stress Symptoms: None Exercise duration: 9 min00 sec Highest Stage Reached: Stage 4: 4.2 mph at 16% grade. Exercise capacity: 10.16 METs Functional Capacity: Average Capacity Stress ECG Conclusion 1. Patient exercised for 9 minutes (10 METS). Rate-pressure product was 22,000. 2. Patient had no symptoms suggestive of ischemia. 3. There was no evidence of ischemia on the ECG portion of the exam at this level of stress. 4. The Ansari Score (8) estimates an annual cardiovascular mortality of 0% and a five year survival of 95%. Using the Ansari Score there is a low probability of any angiographic coronary disease. Protocol Used: Yvon Protocol Stress Test Summary STAGE Time (mins) Speed (mph) Grade (%) HR BP SYMPTOMS METS Supine 80 130/96 Standing 88 132/90 1 3 1.7 10 120 140/90 4.6 2 6 2.5 12 135 144/90 7 3 9 3.4 14 10.2 4 12 4.2 16 12.9 5 15 5.0 18 17.2 1 min recovery 128 160/90 3 min recovery 99 150/96 6 min recovery 94 128/88 9 min recovery 12 min recovery
== END 2019-08-10 01:49 ==
PROVIDERS: PCP Family Medicine; Visit Provider Family Medicine
DX: R07.89 Other chest pain (principal); E78.5 Hyperlipidemia, unspecified; K21.9 Gastro-esophageal reflux disease without esophagitis
CPT/HCPCS: 93017

== ENCOUNTER 2019-08-10 01:41 | Outpatient (CLI) | payer BC, MEDICAID, SELFPAY ==
--- NOTE | 2019-08-10 09:00 | DI.MAMMO_ITS ---
EXAM: MAMMO SCREENING CLINICAL HISTORY: SCREENING, Z12.31 TECHNIQUE: Mammograms were interpreted according to the usual protocol including computer analysis w [employer] CAD system, tomosynthesis and C-view imaging. COMPARISON: November 2016 FINDINGS: The breasts are of moderate density with fairly symmetrical distribution of fibroglandular tissue. N o dominant mass or clumped microcalcification is identified in either breast. Current examination is compared with previous examinations including November 2016 and there is increased prominence of a focal area of vaguely nodular asymmetric density projected in the upper outer quadrant of the left breast. Additional mammographic views of left breast are requested to include CC and MLO spot compression v iews. BI-RADS Cat 0 - Assessment Incomplete: Need additional imaging evaluation Breast density category B IMPRESSION: Additional mammographic views of the left breast are requested as described above. Breast ultrasound may be indicated as well depending on the results additional mammographic views.
== END 2019-08-10 02:01 ==
PROVIDERS: PCP Family Medicine; Visit Provider Nurse Practitioner Women's Health
DX: Z12.31 Encounter for screening mammogram for malignant neoplasm of breast (principal); R92.8 Other abnormal and inconclusive findings on diagnostic imaging of breast
CPT/HCPCS: 77063; 77067

== ENCOUNTER 2019-08-12 01:25 | Outpatient (CLI) | payer BC, MEDICAID, SELFPAY ==
--- NOTE | 2019-08-12 | DI.MAMMO_ITS ---
EXAM: MG MAMMO SCREEN CALL BACK UNI and U/S left breast CLINICAL HISTORY: F/U MAMMO, INCREASED PROMINENCE ASYMMETRIC DENSITY UOQ LT BREAST. TECHNIQUE: Craniocaudal and mediolateral oblique Full Field Digital Mammography views of the left br east with Computer Aided Diagnosis followed by Tomosynthesis and left breast ultrasound. COMPARISON: Priors available for comparison FINDINGS: Mammography/Tomosynthesis: Masses/Architectural Distortion: Asymmetric density in the upper-outer quadrant of the left breast ca n be seen on prior examinations. This appears stable. Microcalcifictions: No suspicious pleomorphic-type are seen. Skin Thickening/Nipple Retraction: None. Left breast US: Echotexture: Normal appearance of the glandular tissue. Shadowing: No suspicious foci. Cyst: None. Solid lesions: None seen. Ductal dilation: None. IMPRESSION: 1. No definite evidence for malignancy at this time. 2. A six-month follow-up left mammogram is recommended for re-evaluation. BI-RADS Cat 3 - 6 month - Probably Benign Finding: Recommend follow-up mammography in 6 months Breast Density - Category B - Scattered areas of fibroglandular density The findings were discussed with the patient on the date of the examination. A negative radiographic report should not delay biopsy if a dominant or clinically suspicious mass is present. Up to ten percent of cancers are not identified on mammography. A negative report may reinforce clinical impression. Adenosis and dense breasts may obscure an underlying neoplasm. False positive reports average 6 to 10%. Patient will receive a letter notifying them of these results.
== END 2019-08-12 01:45 ==
PROVIDERS: PCP Family Medicine; Visit Provider Nurse Practitioner Women's Health
DX: Z12.31 Encounter for screening mammogram for malignant neoplasm of breast (principal); R92.8 Other abnormal and inconclusive findings on diagnostic imaging of breast; N64.59 Other signs and symptoms in breast
CPT/HCPCS: 76642; 77063; 77067

== ENCOUNTER 2019-10-02 06:22 | Outpatient (CLI) | payer BC, MEDICAID, SELFPAY ==
--- NOTE | 2019-10-02 06:15 | DI.RAD_ITS ---
EXAM: XR LUMBAR SPINE COMPLETE CLINICAL HISTORY: worsening LBP,m51.36,degeneration of intervertebral disc of lumbar spine TECHNIQUE: COMPARISON: No exams were available for comparison FINDINGS: Five views were obtained. There are prominent hypertrophic degenerative changes of the facet joints. No definite spondylolysis is seen, although healed spondylolysis could be present at L 4. There is a mild pseudo spondylolisthesis versus spondylolisthesis of L 4 on L5. The intervertebral disc spaces are narrowed at L4-5 and L5-S1. Mild hypertrophic spurring of the vertebral endplates noted throughout the lumbar and lower thoracic region. No compression fracture seen. IMPRESSION: Prominent facet degenerative changes, pseudo spondylolisthesis versus spondylolisthesis of L4 on L5.. Additional evaluation with CT or MR may be considered if clinically indicated. There is evidence of disc degeneration with loss of disc height at L4-5 and L5-S1.
== END 2019-10-02 06:42 ==
PROVIDERS: PCP Family Medicine; Visit Provider Family Medicine
DX: M54.5 Low back pain (principal); M51.37 Other intervertebral disc degeneration, lumbosacral region; M47.817 Spondylosis without myelopathy or radiculopathy, lumbosacral region
CPT/HCPCS: 72110

== ENCOUNTER 2019-10-21 02:58 | Outpatient (CLI) | payer BC, MEDICAID, SELFPAY ==
[2019-10-21 09:41] LABS: HCT 39.7 % (36.0-46.0); HGB 13.6 g/dL (12.0-15.5); Mean Corp. HGB Concentration 34.3 g/dL (32.0-36.0); Mean Corpuscular Hemoglobin 31.4 pg (27.0-33.0); Mean Corpuscular Volume 91.7 fL (80-95); Mean Platelet Volume 8.5 fL (8.0-11.0); Platelet Count 329 x1000/uL (130-400); RBC 4.33 m/cumm (4.00-5.20); White Blood Cell Count 4.29 k/cumm (4.4-10.8)
[2019-10-21 10:14] LABS: ESR 29 mm/hr (0-30)
[2019-10-21 10:32] LABS: ALT 45 U/L (14-59); AST 22 U/L (15-37); Albumin 3.8 g/dL (3.4-5.0); Alkaline Phosphatase 63 U/L (46-116); Anion Gap 5.7 mmol/L (3-11); BUN 18 mg/dL (7-18); Bilirubin, Total 0.4 mg/dL (0.2-1.0); CO2 27.3 mmol/L (21.0-32.0); CREATININE 0.91 mg/dL (0.55-1.02); Calcium 9.5 mg/dL (8.5-10.1); Chloride 104 mmol/L (98-107); Glucose 172 mg/dL (74-106); Magnesium 2.2 mg/dL (1.8-2.4); Potassium 4.2 mmol/L (3.5-5.1); Sodium 137 mmol/L (136-145); Total Protein 7.4 g/dL (6.4-8.2)
[2019-10-21 17:39] LABS: Rheumatoid Factor <8.6 IU/mL (<12.0)
[2019-10-22 10:37] LABS: Cyclic Citrullinated Peptide <2.5 U/mL (<5.0)
[2019-10-22 14:46] LABS: ANA Interpretation Positive (Negative)
[2019-10-22 17:05] LABS: HLA-B27 Result Positive
== END 2019-10-21 03:18 ==
PROVIDERS: PCP Family Medicine; Visit Provider Family Medicine
DX: M51.36 Other intervertebral disc degeneration, lumbar region; M79.671 Pain in right foot; M79.672 Pain in left foot
CPT/HCPCS: 36415; 80053; 85027; 85652; 86200; 86812; 83735; 86038; 86431

== ENCOUNTER 2019-11-02 08:57 | Emergency (ER) | payer BC, MEDICAID, SELFPAY ==
[2019-11-02 09:00] VITALS: BP 137/95; PULSE 99; RESP 17; TEMP 36.5; O2SAT 96
--- NOTE | 2019-11-02 09:00 | DI.US_ITS ---
EXAM: US ABDOMEN LIMITED CLINICAL HISTORY: R/O cholecystitis, gallstones TECHNIQUE: Ultrasound performed using standard protocol. COMPARISON: US US ABDOMEN from 06/19/2019 FINDINGS: The exam is limited by the patient's body habitus. A few small mobile gallstones are noted. The g allbladder is not abnormally distended. There is no pericholecystic fluid. The gallbladder wall is not well visualized. Common bile duct measures 4 millimeters. The liver is enlarged and shows sever e fatty infiltration. IMPRESSION: Severely limited exam. Cholelithiasis. DATA REPOSITORY:
--- NOTE | 2019-11-02 09:00 | ED.GENADUL_ITS ---
Discharge Plan Disposition Patient Disposition: HOME Condition: Stable Discharge Details Chief Complaint: Abd Prob Clinical Impression: Gall stones Primary Care Provider: Saba Christopher ED Provider: Lizbeth Husain Home Meds and New Rx's Prescriptions: New ondansetron HCl [Zofran] 4 mg tablet 4 mg PO BID-TID PRN (Reason: nausea and vomiting) Qty: 10 RF: 0 Continued nystatin 100,000 unit/gram powder 1 applic TP BID PRN (Reason: yeast) Qty: 60 RF: 5 omeprazole 40 mg capsule,delayed release(DR/EC) 40 mg PO DAILY Qty: 90 RF: 4 albuterol sulfate 90 mcg/actuation HFA aerosol inhaler 2 puff IH Q6H PRN (Reason: bronchospasm) Qty: 18 RF: 11 (DME) Aerochamber MV Spacer See Rx Instructions .ROUTE .MEDSUPPLY Qty: 1 RF: 0 diclofenac sodium [Voltaren] 1 % gel 4 gm TP QID Qty: 100 RF: 3 acyclovir 800 mg tablet 800 mg PO .COMPLEX Qty: 35 RF: 5 estradiol 10 mcg insert 10 mcg VG .COMPLEX Qty: 24 RF: 5 ibuprofen 600 mg tablet 600 mg PO TID PRN (Reason: pain) Qty: 90 RF: 2 budesonide-formoterol [Symbicort] 80-4.5 mcg/actuation HFA aerosol inhaler 2 puff IH BID Qty: 10.2 RF: 3 epinephrine [EpiPen] 0.3 mg/0.3 mL auto-injector 0.3 mg IM ONCE Qty: 1 RF: 0 prednisone 20 mg tablet See Rx Instructions PO DAILY Qty: 11 RF: 0 No Action ciprofloxacin HCl [Cipro] 500 mg tablet 500 mg PO BID Qty: 14 RF: 0 baclofen 10 mg tablet 10 mg PO TID Qty: 90 RF: 2 triamcinolone acetonide [Triderm] 0.5 % cream 1 applic TP BID PRN (Reason: rash on abdomen) RF: 0 famotidine [Pepcid] 40 mg tablet 40 mg PO DAILY RF: 0 escitalopram oxalate [Lexapro] 20 mg tablet 30 mg PO DAILY RF: 0 Myrbetriq 50 mg tablet extended release 24 hr 50 mg PO DAILY RF: 0 ibuprofen 600 mg tablet 600 mg PO Q6H PRNQty: 60 RF: 3 tramadol 50 mg tablet 50 mg PO Q6H PRNQty: 7 RF: 0 ondansetron HCl [Zofran] 4 mg tablet 4 mg PO Q6H PRN (Reason: nausea) Qty: 7 RF: 0 Discharge Instructions Instructions: Biliary Colic (ED), Gallstones (ED) Additional Instructions: Follow up with primary care provider in 3-5 days. Return to ED sooner if any worsening or concerns. Increase oral fluids. Please take Tylenol or Ibuprofen with food every 4-6 hours as needed for pain and swelling. Take medications as directed return to the ED for any vomiting, fever worsening pain. Call and make a follow-up appointment with surgery. Decrease fatty food intake, stay away from spicy foods, dairy. Referrals: Saba Christopher MD, [place] [Primary Care Provider] - Maddie Cochran DO [OSTEOPATHIC DOCTOR] - (Evaluate gallbladder, gallstones. within 1-2 weeks) Discharge Data Discharge Date/Time-TO BE ENTERED AT DEPARTURE: 11/02/19 10:56 Medical Decision Making <Lizbeth Husain - Last Filed: 11/03/19 17:02> 49-year-old female presents with right upper quadrant abdominal pain which began yesterday at 4 AM. Associated with nausea no vomiting no diarrhea. She reports regular bowel movements. She describes pain as sharp constant waxing and waning. No radiation. Denies any dysuria. Only abdominal surgical history includes tubal ligation, some back surgeries. Patient denies any other symptoms. Labs ordered including CBC, CMP, urinalysis and lipase, abdominal ultrasound ordered to rule out Ceci cystitis versus cholelithiasis. Work-up is largely benign WBC count is 11.87, platelets are 431, which are slightly elevated from previous labs, absolute neutrophils 9.42, glucose 131, Urinalysis is negative for leukocytes, nitrites. EXAM: US ABDOMEN LIMITED CLINICAL HISTORY: R/O cholecystitis, gallstones TECHNIQUE: Ultrasound performed using standard protocol. COMPARISON: US US ABDOMEN from 06/19/2019 FINDINGS: The exam is limited by the patient's body habitus. A few small mobile gallstones are noted. The gallbladder is not abnormally distended. There is no pericholecystic fluid. The gallbladder wall is not well visualized. Common bile duct measures 4 millimeters. The liver is enlarged and shows severe fatty infiltration. IMPRESSION: Severely limited exam. Cholelithiasis. 1037: Patient reevaluation, discussed ultrasound and lab results with patient, patient verbalized understanding. Instructed to decrease fatty intake, decrease dairy. Strict return instructions discussed. Patient given 4 mg oral ondansetron prescription prior to discharge. Instructed to follow-up with PCP and given referral to outpatient general surgery if any continued pain and to further evaluate gallstones. Differential diagnosis includes but not limited to cholecystitis, UTI, gastritis, kidney stones. This text was generated using [email or web address] system, please disregard any oddities of phrase or misspellings. <Marycarmen Mohamud MD - Last Filed: 11/09/19 23:22> I have seen and examined the patient and agree with the history and physical exam as documented by the PA except as noted. Review of systems per PA. Briefly Nelda Stubbs presented to the emergency department with RUQ pain since yesterday. On exam Pt is very well and non-toxic appearing. Focal TTP RUQ with +milian's sign. No other abd TTP inc no RLQ or McBPt TTP. No rebound or guarding. Exam/hx not c/w appy, diverticulitis, bowel perf, acute aortic etiology, ACS, sepsis, meseneric ischemia. Concern for cholecystitis, biliary colic, pancreatitis, gastritis, other. RUQ US shows cholelithiasis. Pt with symptoms improved, feels well, taking PO in the ED without issue. Further emergent imaging including CT not indicated. Pt states she feels comfortable going home at this time. Plan for outpt f/u with PCP and surgery. I had a lengthy discussion with Patient regarding return to emergency department precautions, home care, and importance of outpatient follow-up. Pt verbalizes understanding of the plan and is amenable. Patient discharged to home with clear plan for outpatient follow-up. All questions were answered. Disposition decision was made weighing the risks and benefits of hospitalization versus outpatient treatment, the risk for further decompensation, and the patient's wishes. Medical Records Medical records reviewed: Yes I reviewed the patient's medical records. Lab Data Lab results reviewed: Yes I reviewed the patient's lab results. HPI <Lizbeth Husain - Last Filed: 11/03/19 17:02> General Mode of arrival: ambulatory . Date/Time Provider Initiated Documentation: 11/02/19 08:57 . Limitations to Documentation: no limitations . Information obtained by: patient . HPI Narrative: 49-year-old female presents with right upper quadrant abdominal pain which began yesterday at 4 AM. Associated with nausea no vomiting no diarrhea. She reports regular bowel movements. She describes pain as sharp constant waxing and waning. No radiation. Denies any dysuria. Only abdominal surgical history includes tubal ligation, some back surgeries. Patient denies any other symptoms. Related Data Home Medications Medication Instructions Recorded Confirmed omeprazole 40 mg capsule,delayed 40 mg PO DAILY #90 cap 03/06/19 11/09/19 release albuterol sulfate 90 mcg/actuation 2 puff IH Q6H PRN #18 gm 03/30/19 11/09/19 aerosol inhaler nystatin 100,000 unit/gram topical 1 applic TP BID PRN #60 gm 06/16/19 11/09/19 powder inhalational spacing device #1 each 07/06/19 11/06/19 diclofenac sodium 1 % topical gel 4 gm TP QID #100 gm 07/16/19 11/09/19 acyclovir 800 mg tablet 800 mg PO .COMPLEX #35 tab 07/27/19 11/09/19 estradiol 10 mcg vaginal insert 10 mcg VG .COMPLEX #24 insert 07/28/19 11/09/19 ibuprofen 600 mg tablet 600 mg PO TID PRN #90 tab 09/21/19 11/09/19 budesonide-formoterol HFA 80 2 puff IH BID #10.2 gm 10/09/19 11/09/19 mcg-4.5 mcg/actuation aerosol inhaler epinephrine 0.3 mg/0.3 mL 0.3 mg IM ONCE #1 each 10/13/19 11/09/19 injection, auto-injector prednisone 20 mg tablet See Rx Instructions PO DAILY #11 10/30/19 11/09/19 tab ondansetron HCl [Zofran] 4 mg PO BID-TID PRN #10 tab 11/02/19 11/09/19 baclofen 10 mg tablet 10 mg PO TID #90 tab 11/04/19 11/09/19 ciprofloxacin HCl 500 mg tablet 500 mg PO BID #14 tab 11/06/19 11/09/19 Myrbetriq 50 mg PO DAILY 11/09/19 11/09/19 escitalopram oxalate [Lexapro] 30 mg PO DAILY 11/09/19 11/09/19 famotidine [Pepcid] 40 mg PO DAILY 11/09/19 11/09/19 ibuprofen 600 mg PO Q6H PRN #60 tab 11/09/19 ondansetron HCl [Zofran] 4 mg PO Q6H PRN #7 tab 11/09/19 tramadol 50 mg PO Q6H PRN #7 tab 11/09/19 triamcinolone acetonide [Triderm] 1 applic TP BID PRN 11/09/19 11/09/19 Previous Rx's Medication Instructions Recorded omeprazole 40 mg capsule,delayed 40 mg PO DAILY #90 cap 03/06/19 release albuterol sulfate 90 mcg/actuation 2 puff IH Q6H PRN #18 gm 03/30/19 aerosol inhaler nystatin 100,000 unit/gram topical 1 applic TP BID PRN #60 gm 06/16/19 powder inhalational spacing device #1 each 07/06/19 diclofenac sodium 1 % topical gel 4 gm TP QID #100 gm 07/16/19 acyclovir 800 mg tablet 800 mg PO .COMPLEX #35 tab 07/27/19 estradiol 10 mcg vaginal insert 10 mcg VG .COMPLEX #24 insert 07/28/19 ibuprofen 600 mg tablet 600 mg PO TID PRN #90 tab 09/21/19 budesonide-formoterol HFA 80 2 puff IH BID #10.2 gm 10/09/19 mcg-4.5 mcg/actuation aerosol inhaler epinephrine 0.3 mg/0.3 mL 0.3 mg IM ONCE #1 each 10/13/19 injection, auto-injector prednisone 20 mg tablet See Rx Instructions PO DAILY #11 10/30/19 tab ondansetron HCl [Zofran] 4 mg PO BID-TID PRN #10 tab 11/02/19 baclofen 10 mg tablet 10 mg PO TID #90 tab 11/04/19 ciprofloxacin HCl 500 mg tablet 500 mg PO BID #14 tab 11/06/19 ibuprofen 600 mg PO Q6H PRN #60 tab 11/09/19 ondansetron HCl [Zofran] 4 mg PO Q6H PRN #7 tab 11/09/19 tramadol 50 mg PO Q6H PRN #7 tab 11/09/19 Allergies Allergy/AdvReac Type Severity Reaction Status Date / Time insect venom Allergy Severe Anaphylaxsi Verified 11/09/19 10:49 s buspirone HCl [From BuSpar] AdvReac HEADACHES Verified 11/06/19 14:50 oxycodone AdvReac SYNCOPE Verified 11/06/19 14:50 General CALE: 2 Review of Systems <Lizbeth Husain - Last Filed: 11/03/19 17:02> Narrative: Constitutional: Negative for weight loss, alert and oriented, well groomed, normal body habitus, appears comfortable. HEENT: Denies trauma, headaches, blurry vision, nasal discharge, sore throat, trouble swallowing. Chest: Denies chest pain, palpitations, irregular rhythm, hypertension. Respiratory: Denies Shortness of breath, cough, hemoptysis. GI: Denies vomiting, diarrhea, constipation. Positive abdominal pain, positive nausea. : Denies dysuria, hematuria, flank pain, rectal bleeding. Neuro: Denies dizziness, blurry vision, weakness, syncope, headache or facial numbness. Hematologic: Denies easy bruising, intolerance to heat or cold, hair loss. All systems reviewed & are unremarkable except as noted in HPI and below PFSH <Lizbeth Husain - Last Filed: 11/03/19 17:02> Medical History (Updated 11/09/19 @ 17:37 by Maddie Cochran DO) Allergic conjunctivitis of both eyes (Inactive 02/22/15) Candidal vulvovaginitis (Inactive 11/19/11) Chest heaviness (Inactive) Diarrhea (Inactive) Lateral epicondylitis (Inactive 09/01/13) Non-intractable vomiting with nausea (Inactive 09/26/15) Pain of hand (Inactive 01/07/17) PONV (postoperative nausea and vomiting) (Acute) Preop testing (Acute) Sciatica (Inactive) left; L5-S1 herniation; MRI 2001; repeat 03/22-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 S/P disc surgery 2003 Yeast infection (Inactive 12/23/17) Surgical History EGD - MAC (~05/2007) History of bilateral ligation of fallopian tubes (Inactive) History of esophagogastroduodenoscopy (Inactive) History of spinal surgery (Inactive) Ligation of fallopian tube Social History Smoking/Tobacco Use Status: Never Alcohol Intake: current Alcohol Intake frequency: holidays/special occasions only Drug use: Never Substance use type: does not use Seatbelt use: always Do you feel safe at home: Yes Do you feel safe in your relationship?: Yes Female Reproductive History Menstrual Menopause type: natural History History 5 Para Hx # Term Pregnancies 3 Multiple births Hx # Pregnancies Ectopic pregnancies AB induced Hx Number of Living Children AB spontaneous Exam <Lizbeth Husain - Last Filed: 11/03/19 17:02> Narrative Exam Narrative: Constitutional: Alert and oriented x3. Appears stated age. Normal body habitus. Head: Normocephalic, no trauma. Eyes: Pupils PERRLA, Eyelids symmetrical without lesions, discharge, or swelling. ENT: Bilateral TM's WNL, External ear normal to inspection, no mastoid TTP, swelling, or erythema, Nasal turbinates WNL, no nasal discharge. Normal dentition, Posterior pharynx WNL, no exudate. Chest: RRR, Normal S1, S2, distal pulses intact. Resp: Lungs clear to auscultation bilaterally, no wheezes, rales, or rhonchi. Abdominal: Soft, nondistended, normoactive bowel sounds all 4 quadrants, right upper quadrant tender to palpation. : No CVA tenderness. Musculoskeletal: Normal gait, 5/5 strength to all four extremities. Skin: No suspicious rashes or lesions. Capillary refill less than 2 sec. Neurologic: Cranial nerves II-XII intact. Alert and oriented x 3. DTR's intact. Hematologic/Lymphatic: No ecchymosis, no lymphadenopathy.
[2019-11-02 09:21] LABS: Bilirubin Negative (Negative); Blood Negative (Negative); Clarity Clear (Clear); Glucose Negative (Negative); Ketones Negative (Negative); Leukocyte Esterase Negative (Negative); Nitrite Negative (Negative); Specific Gravity >= 1.030 (1.005-1.025); Urobilinogen 0.2 EU/dL (Up TO 0.2); pH 5.5 (5-8)
[2019-11-02] MEDS: Acetaminophen 500 MG TAB PO (09:26)
[2019-11-02] MEDS: Ondansetron O.D.T. 4 MG TABEF PO (09:26)
[2019-11-02] MEDS: Normal Saline 1,000 ML 500 ML IV (09:27)
[2019-11-02 09:33] LABS: Abs Immature Grans 0.07 k/cumm (0.0-0.09); Absolute Basophil Count 0.01 k/cumm (0.0-0.2); Absolute Eosinophil Count 0.01 k/cumm (0.0-0.7); Absolute Lymphocyte Count 1.74 k/cumm (1.2-3.4); Basophils % 0.1; Eosinophils % 0.1; HCT 43.2 % (36.0-46.0); HGB 14.8 g/dL (12.0-15.5); Immature Grans % 0.6 %; Lymphocytes % 14.7; Mean Corp. HGB Concentration 34.3 g/dL (32.0-36.0); Mean Corpuscular Hemoglobin 31.4 pg (27.0-33.0); Mean Corpuscular Volume 91.5 fL (80-95); Mean Platelet Volume 8.7 fL (8.0-11.0); Monocytes % 5.1; Neutrophils % 79.4; Platelet Count 431 x1000/uL (130-400); RBC 4.72 m/cumm (4.00-5.20); RBC Distribution Width 13.1 % (11.7-14.6); White Blood Cell Count 11.87 k/cumm (4.4-10.8)
[2019-11-02 09:34] LABS: Absolute Monocyte Count 0.61 k/cumm (0.11-0.7); Absolute Neutrophil Count 9.42 k/cumm (1.2-6.7)
[2019-11-02 09:49] LABS: ALT 54 U/L (14-59); AST 17 U/L (15-37); Albumin 3.9 g/dL (3.4-5.0); Alkaline Phosphatase 68 U/L (46-116); Anion Gap 8.6 mmol/L (3-11); BUN 15 mg/dL (7-18); Bilirubin, Total 0.4 mg/dL (0.2-1.0); CO2 25.4 mmol/L (21.0-32.0); CREATININE 0.81 mg/dL (0.55-1.02); Calcium 9.1 mg/dL (8.5-10.1); Chloride 104 mmol/L (98-107); Glucose 131 mg/dL (74-106); Lipase 164 U/L (73-393); Sodium 138 mmol/L (136-145); Total Protein 8.2 g/dL (6.4-8.2)
[2019-11-02 10:28] VITALS: BP 131/74; PULSE 73; RESP 18; TEMP 36.6; O2SAT 96
--- NOTE | 2019-11-02 11:27 | NUR.NOTE ---
Referral fax[facility] to [facility]Nursing Note:
== END 2019-11-02 10:56 | disposition home or self-care (01) ==
PROVIDERS: Emergency Provider Registered Nurse Emergency; PCP Family Medicine
DX: K80.20 Calculus of gallbladder without cholecystitis without obstruction (principal); R11.0 Nausea
CPT/HCPCS: 36415; 80053; 83690; 96360; 99284; 76705; 81003; 85025; 99285

== ENCOUNTER 2019-11-06 13:38 | Outpatient (CLI) | payer BC, MEDICAID, SELFPAY ==
[2019-11-07 17:39] LABS: COVID-19 RT-PCR UVMMC Result Negative (Negative)
== END 2019-11-06 13:58 ==
PROVIDERS: PCP Family Medicine; Visit Provider Surgery
DX: Z11.59 Encounter for screening for other viral diseases (principal); Z01.818 Encounter for other preprocedural examination
CPT/HCPCS: U0003

== ENCOUNTER 2019-11-09 17:37 | Observation (INO) | payer BC, MEDICAID, SELFPAY ==
[2019-11-07 23:00] VITALS: BP 144/86; PULSE 84; RESP 18; TEMP 36.3; O2SAT 96
[2019-11-09] VITALS (11 sets, daily range): BP systolic 120–160; BP diastolic 64–93; PULSE 59–88; RESP 12–20; TEMP 35.7–36.6; O2SAT 92–96
[2019-11-09] MEDS: Gabapentin 300 MG CAP PO (09:56)
[2019-11-09] MEDS: Lactated Ringers 1,000 ML 100 ML IV ×2 (09:56→16:14)
[2019-11-09] MEDS: Acetaminophen 500 MG TAB 1000 MG PO (09:56)
--- NOTE | 2019-11-09 10:09 | W.PM.OP ---
Date of service: 11/09/19 Operative Note Operative Note DATE OF PROCEDURE: 11/09/19 PRE-OP DIAGNOSIS: acute on chronic josé w/ stones POST-OP DIAGNOSIS: other PROCEDURE: lap josé SURGEON: Maddie Grey ANESTHESIA: GETA Procedure Description: PRE-OPERATIVE DIAGNOSIS: cholecystitis, cholelithiasis. POST-OPERATIVE DIAGNOSIS: chronic cholecystitis, cholelithiasis PROCEDURE: Laparoscopic cholecystectomy. SURGEON: Maddie Grey, ANESTHESIA: General. ESTIMATED BLOOD LOSS: Less than 10 mL COMPLICATIONS: The patient tolerated the procedure without complication. INDICATIONS: The pt is seen at the request of there PCP regarding acute on chronic cholecystitis, cholelithiasis. The pt has failed outpt conservative medical measures and is here today for laparoscopic cholecystectomy. Informed consent was obtained, explaining risks and benefits of the procedure including but not limited to bleeding, infection, pneumonia, blood clots, possible damage to bowel, bladder, blood vessels, bile ducts, possible open procedure, complications of general anesthesia and other unforetold complications. PROCEDURE: The patient agrees and is brought to the operative room suite and placed in supine position. Anesthesia was administered per the Department of Anesthesia. The patient did receive IV antibiotics. NG tube and Roth catheter are placed. The patient was prepped and draped in the usual sterile fashion using DuraPrep scrub solution. Pause for the cause was done. 20 mL of 1% buffered lidocaine was used for local anesthetization. A stab incision was made in the umbilicus and the Verres inserted. Drop test was positive and insufflation was begun. When 15 mm of pressure was noted on the monitor, the Veress was removed and #5 port inserted. The camera was inserted through the port and shows no damage to underlying structures. A 10 mm port was then placed in the epigastric position under direct visualization following creation of local field blocks as well as two 5 mm ports in the right upper quadrant. The gallbladder fundus was grasped and retracted towards the right shoulder. Infundibulum was grasped and retracted laterally. The hepat-duodenal ligament is entered. The cystic duct and artery are dissected out and the most inferior portion of the gallbladder plate is removed from the liver and the critical view of safety was obtained after clearing away all fatty material. Endo Clips were placed across the duct and artery and these structures are divided. The remainder of the gallbladder was excised from the liver bed. The gallbladder was placed in a bag and brought out. Examination of the gallbladder shows indeed the cystic duct and artery to have been divided. The remainder of the abdomen was copiously irrigated with a liter of saline. All saline is removed. There is no bleeding or bile leakage from the liver bed or the clips sites. An EndoClose needle was used to close the 10 mm port site with an 0 Vicryl. All ports and instruments are removed. SPonge and needle counts are correct. Pneumoperitoneum is evacuated and the port sites are monitored to make sure there is no bleeding at the time of desufflation. Port sites are irrigated and the skin is closed with 4-0 Monocryl in a running subcuticular fashion. Skin glue sterile dressings are applied. The patient tolerated the procedure well without complications, transferred to the recovery room in stable condition. MADDIE GREY DO
[2019-11-09] MEDS: CIPROFLOXACIN 400 MG/200 ML BAG 200 MG IVPB ×2 (14:16→22:15)
--- NOTE | 2019-11-09 15:24 | GB_PTH ---
PATIENT: Nelda Robison LOC: OBS U#:[id number] AGE/SX: 49/F ROOM: OBS.306 RE11/09/[address]: Maddie Cochran : 1970 BED: A DIS: 11/10/2019 SPEC #: [id number] RECD: 11/09/19 16:36 STATUS: BARBARA REQ #: [id number] AMADEO: 11/09/19 15:[address]: Maddie Cochran DEPT: [facility] RECD BY: Ale Esparza ENTERED: 11/09/19 16:37 SP TYPE: GB OTHR DR: Saba Christopher MD, DC Tissues: 1 - GALLBLADDER Procedures: GROSS AND MICRO LEVEL 3 Comments: [id number]
--- NOTE | 2019-11-09 15:48 | W.PM.DSUDISC ---
Discharge Plan Disposition Patient Disposition: HOME Condition: Good Discharge Details Reason For Visit: GALL BLADDER Attending Provider: Maddie Cochran Primary Care Provider: Saba Christopher Meds and New Rx's Prescriptions: New ibuprofen 600 mg tablet 600 mg PO Q6H PRNQty: 60 RF: 3 tramadol 50 mg tablet 50 mg PO Q6H PRNQty: 7 RF: 0 ondansetron HCl [Zofran] 4 mg tablet 4 mg PO Q6H PRN (Reason: nausea) Qty: 7 RF: 0 Continued nystatin 100,000 unit/gram powder 1 applic TP BID PRN (Reason: yeast) Qty: 60 RF: 5 ciprofloxacin HCl [Cipro] 500 mg tablet 500 mg PO BID Qty: 14 RF: 0 omeprazole 40 mg capsule,delayed release(DR/EC) 40 mg PO DAILY Qty: 90 RF: 4 albuterol sulfate 90 mcg/actuation HFA aerosol inhaler 2 puff IH Q6H PRN (Reason: bronchospasm) Qty: 18 RF: 11 (DME) Aerochamber MV Spacer See Rx Instructions .ROUTE .MEDSUPPLY Qty: 1 RF: 0 diclofenac sodium [Voltaren] 1 % gel 4 gm TP QID Qty: 100 RF: 3 acyclovir 800 mg tablet 800 mg PO .COMPLEX Qty: 35 RF: 5 estradiol 10 mcg insert 10 mcg VG .COMPLEX Qty: 24 RF: 5 ibuprofen 600 mg tablet 600 mg PO TID PRN (Reason: pain) Qty: 90 RF: 2 budesonide-formoterol [Symbicort] 80-4.5 mcg/actuation HFA aerosol inhaler 2 puff IH BID Qty: 10.2 RF: 3 epinephrine [EpiPen] 0.3 mg/0.3 mL auto-injector 0.3 mg IM ONCE Qty: 1 RF: 0 prednisone 20 mg tablet See Rx Instructions PO DAILY Qty: 11 RF: 0 baclofen 10 mg tablet 10 mg PO TID Qty: 90 RF: 2 ondansetron HCl [Zofran] 4 mg tablet 4 mg PO BID-TID PRN (Reason: nausea and vomiting) Qty: 10 RF: 0 triamcinolone acetonide [Triderm] 0.5 % cream 1 applic TP BID PRN (Reason: rash on abdomen) RF: 0 famotidine [Pepcid] 40 mg tablet 40 mg PO DAILY RF: 0 escitalopram oxalate [Lexapro] 20 mg tablet 30 mg PO DAILY RF: 0 Myrbetriq 50 mg tablet extended release 24 hr 50 mg PO DAILY RF: 0 Discharge Instructions Additional Instructions: Care after Gallbladder Surgery -You should walk frequently, gradually, increasing the distance. You may climb stairs, just go slowly. -You can take Advil 600mg 4 times a day with food for the first week for pain; you may take your prescription medication as prescribed-in addition to the Advil. Discontinue Advil if it hurts your stomach. Do not take Advil if you are intolerant to aspirin products or have stomach problems. ? Use an ice bag for the first 72 hours. This helps to decrease swelling, which causes pain. It is normal to be more sore/painful and swollen towards the end of the day and first thing in the morning. ? Gallbladder surgery can make you very nauseated; use Zofran for nausea, for the first 24 hours. The nausea generally stops after 24 hours. ? Use milk of magnesia or prune juice to prevent constipation (this is a particular side effect of pain medication). Do not allow yourself to become constipated. ? Avoid fatty or greasy foods; introduce these slowly, with care, after about 1 month. Follow the low-fat diet sheet that will be given to you at the office or hospital. ? Start out eating very small, bland amounts of food. Do not take pain pills on an empty stomach. - You can remove the Band-Aids and take a shower 24 hours after surgery. There will be some narrow white strips of tape across your incisions (under the Band-Aids). DO NOT REMOVE THESE. It is all right if they get wet. They will be removed in the doctor?s office. ? Do not go swimming or sit in a hot tube for two weeks. ? There are no stitches to remove. ? Do not drive your car x72hrs and then only if you have no pain and can move freely. Do not drive if you are taking pain narcotic pain medications. ? You may resume sexual activity whenever pain and soreness subside, usually in 2 weeks. ? Do no lift anything over 5 lbs. for the first 10 days. Minimize strenuous activity for the next two weeks. ? You may return to work in one week, or when you feel able, provided you do not have to do any heavy lifting or prolonged standing. ? You should return to Dr. Cochran?s office for a post-op appointment about one week after surgery. Please call the [facility] at: [phone] to schedule an appointment. My Medications for pain and nausea are: ibuprofen and ultram and zofran When to Call the Office: ? If the incision becomes red or swollen, or there is more than a little drainage from it. ? If you develop a temperature higher than 100.5 F. ? If your eyes turn yellow ? Vomiting and can?t keep fluids down Activity:: No lifting over 10 pound Remove Dressings/Wound Care:: 24 hours Shower/Bathe:: 24 hours Diet:: Low-fat diet x2 weeks Yassine Discharge Orders Discharge Orders: Discharge Order (Routine); Ordered 11/09/19 Ordered By: Maddie Cochran DS: Diagnosis Discharge Diagnosis (1) Cholecystitis with cholelithiasis: Status: Acute (2) Gall stones: Status: Acute
[2019-11-09] MEDS: HYDROmorphone 2 MG/ML VIAL IVP (16:25)
[2019-11-09] MEDS: Droperidol 5 MG/2 ML VIAL 0.625 MG IVP ×2 (16:32→16:47)
[2019-11-09] MEDS: Normal Saline Flush 10 ML SYR IV (16:35)
[2019-11-09] MEDS: Metoclopramide 10 MG/2 ML VIAL IVP (17:25)
[2019-11-09] MEDS: Scopolamine 1 MG/3 DAYS PATCH TD (17:25)
--- NOTE | 2019-11-09 17:36 | PGE_ITS ---
Date of Service Date of service: 11/09/19 Time of Service: 17:36 Assessment and Plan Assessment and plan (1) Cholecystitis with cholelithiasis: Status: Acute (2) Gall stones: Status: Acute (3) MONIE positive: Status: Acute (4) HLA-B27 positive arthropathy: Status: Acute (5) Arthralgia: Status: Acute (6) Degeneration of intervertebral disc of lumbar region: Status: Acute (7) Overactive bladder: Status: Acute (8) PONV (postoperative nausea and vomiting): Status: Acute Subjective Subjective Interval history since last seen: The seen in [facility]. She is still requiring IV pain meds and still having pretty intense nausea. She was having nausea for a week adn taking zofran at home. The pt is not having any chest pain or SOB, productive cough; no calf pain or swelling. The pt is making good urine. The pt pain is adequately controlled. The case was discussed with nursing and patients progress reviewed. All of the pt's home medications were addressed and adjusted accordingly for their oral intact status. HEENT: no jaundice. no eye pain/drainage/redness/swelling. mild sore throat cardio- NSR no chest pain, BP stable. pulm: no sob or productive cough. no hemoptysis insicion- clean/dry. dressing intact no excessive bleeding or drainage I discussed with the patient and/or there family about the findings in surgery and the pt's progress. At this point of the night- pt is still requiring IV pain meds and still very nauseated and just generally not feeling good. She has not been able to tolerate anything orally. I think we should just keep her overnight for fluids and pain meds, and plane d/c in am. We reviewed expectations for progress in the hospital; what the pt could expect for recovery time and length of stay. We discussed the importance of walking and pulmonary toilet to avoid blood clots and pneumonia. Continue current plans for pulmonary toilet, GI and DVT prophylaxis. We shall continue the current plan for pain management as it is at an appropriate level and working well for the pt. Appropriate measures will be taken for constipation prevention as well, and this was also reviewed with the pt. wound care plan was reviewed with nursing as well. see orders Objective Objective Clinical Data: Vital Signs Temperature 36.6 C 11/09/19 16:50 Pulse 70 11/09/19 16:50 Pulse Rhythm Regular 11/09/19 09:12 Respiratory Rate 13 11/09/19 16:50 Respiratory Depth Normal 11/09/19 09:12 Blood Pressure 120/64 11/09/19 16:50 Pulse Oximetry 94 L 11/09/19 16:50 Respiratory End-tidal CO2 40 11/09/19 16:50 Oxygen Delivery Method Nasal Cannula 11/09/19 16:50 Oxygen Flow Rate 2 11/09/19 16:50 Pain Level 3 11/09/19 16:50 Intake & Output 11/08/19 11/09/19 11/09/19 23:59 11:59 23:59 Intake Total 1500 / 1500 Output Total 75 / 75 Balance 1425 / 1425 Weight 101.5 kg Intake: IV 1500 / 1500 Output: Urine 75 / 75 Other: Urine Color Pale Emesis Description None
[2019-11-09] MEDS: Ketorolac 30 MG/ML VIAL IVP (22:16)
[2019-11-10 01:13] VITALS: BP 138/83; PULSE 92; RESP 18; TEMP 36.9; O2SAT 94
[2019-11-10] MEDS: Ketorolac 30 MG/ML VIAL IVP (04:07)
[2019-11-10 06:08] VITALS: BP 125/78; PULSE 92; RESP 18; TEMP 36.5; O2SAT 94
[2019-11-10 07:48] VITALS: BP 129/79; PULSE 91; RESP 19; TEMP 36.7; O2SAT 96
[2019-11-10] MEDS: Acetaminophen 500 MG TAB 1000 MG PO (08:10)
[2019-11-10] MEDS: Escitalopram 20 MG TAB 30 MG PO (08:10)
[2019-11-10] MEDS: Famotidine 20 MG TAB 40 MG PO (08:10)
[2019-11-10] MEDS: Mirabegron 50 MG TABCR PO (08:11)
[2019-11-10] MEDS: Baclofen 10 MG TAB PO (08:12)
[2019-11-10] MEDS: Ciprofloxacin 500 MG TAB PO (08:12)
[2019-11-10] MEDS: Omeprazole 20 MG CAPCR 40 MG PO (08:13)
--- NOTE | 2019-11-10 10:29 | W.PM.PROGNOT ---
Date of Service Date of service: 11/10/19 Time of Service: 10:29 Assessment and Plan Assessment and plan (1) PONV (postoperative nausea and vomiting): Status: Acute Assessment and plan: She is feeling better Will discharge home, patient comfortable with instructions Subjective Subjective Interval history since last seen: She is feeling much better today Nausea has resolved, tolerated PO Only used Tylenol this am for pain Exam Narrative Exam Narrative: Appears well Incisions look good Objective Objective Clinical Data: Vital Signs Temperature 98.1 F 11/10/19 07:48 Temperature Source Oral 11/10/19 07:48 Pulse 91 H 11/10/19 07:48 Pulse Rhythm Regular 11/10/19 07:48 Respiratory Rate 19 11/10/19 07:48 Respiratory Effort Non-Labored 11/10/19 07:48 Respiratory Depth Normal 11/10/19 07:48 Respiratory Pattern Normal 11/10/19 07:48 Blood Pressure 129/79 11/10/19 07:48 Pulse Oximetry 96 11/10/19 07:48 Respiratory End-tidal CO2 40 11/09/19 16:50 Oxygen Delivery Method Room Air 11/10/19 07:48 Oxygen Flow Rate 0 11/10/19 07:48 Pain Level 4 11/10/19 08:10 Intake & Output 11/09/19 11/09/19 11/10/19 11:59 23:59 11:59 Intake Total 1500 / 1500 767 / 767 Output Total 75 / 75 1800 / 1800 Balance 1425 / 1425 -1033 / -1033 Weight 223 lb 12.307 oz Intake: IV 1500 / 1500 767 / 767 Output: Urine 75 / 75 1800 / 1800 Other: Urine Color Pale Pale Urine Appearance Clear Clear Urine Odor None Emesis Description None Voiding Methods Toilet
== END 2019-11-10 11:00 | disposition home or self-care (01) ==
LOC: OBS 20:16
PROVIDERS: Admitting Provider Surgery; PCP Family Medicine; Visit Provider Surgery
PROC: 0FT44ZZ Resection of Gallbladder, Percutaneous Endoscopic Approach (ICD-10-PCS; CPT 47562; principal; 2019-11-09 10:00)
DX: K91.0 Vomiting following gastrointestinal surgery (principal); K80.12 Calculus of gallbladder with acute and chronic cholecystitis without obstruction; R76.8 Other specified abnormal immunological findings in serum; M13.88 Other specified arthritis, other site
CPT/HCPCS: 47562; NC; 88304; J0744; J1100; J1790; J1885; J2405; J2704; J2765

== ENCOUNTER 2019-12-14 00:59 | Outpatient (CLI) | payer BC, MEDICAID, SELFPAY ==
--- NOTE | 2019-12-14 | DI.RAD_ITS ---
EXAM: XR FOOT LT LIMITED CLINICAL HISTORY: MYALGIA, M79.10, POLYARTHRALGIA, M25.50. TECHNIQUE: 2D digital imaging was performed. COMPARISON: CR XR FOOT RT LIMITED from 12/14/2019 FINDINGS: BONES: No acute fracture is present. No bony destructive lesion is seen. There is a small spur at t he Achilles insertion on the calcaneus. The bones are normally mineralized. JOINTS: No dislocation present. There are minimal degenerative changes in the tarsal region. SOFT TISSUE: Normal. IMPRESSION: Minimal degenerative changes. DATA REPOSITORY: RADIATION DOSE DELIVERED:
--- NOTE | 2019-12-14 | DI.RAD_ITS ---
EXAM: XR ARTHRITIS SERIES CLINICAL HISTORY: MYALGIA,M79.10,POLYARTHRALGIA,M25.50 TECHNIQUE: 2D digital imaging was performed. COMPARISON: No exams were available for comparison FINDINGS: The bones are normally mineralized. The joint spaces are well maintained. No erosive or productiv e changes are seen. IMPRESSION: Negative bilateral hands
--- NOTE | 2019-12-14 | DI.RAD_ITS ---
EXAM: XR SACROILIAC JOINTS CLINICAL HISTORY: POLYARTHRLAGIA, M25.50,MYALGIA,M79.10. TECHNIQUE: 2D digital imaging was performed. COMPARISON: CR XR FOOT RT LIMITED from 12/14/2019 CR XR FOOT LT LIMITED from 12/14/2019 CR XR ARTHRITIS SERIES from 12/14/2019 FINDINGS: There is narrowing of the L5-S1 disc space. There is mild spurring at the SI joints. No bony erosio ns are seen. The hip joint spaces are well maintained. There is mild bilateral acetabular spurring. IMPRESSION: Mild degenerative changes. No bony erosions. DATA REPOSITORY: RADIATION DOSE DELIVERED:
== END 2019-12-14 01:19 ==
PROVIDERS: PCP Family Medicine; Visit Provider Internal Medicine
DX: M48.07 Spinal stenosis, lumbosacral region (principal); M16.10 Unilateral primary osteoarthritis, unspecified hip; M76.9 Unspecified enthesopathy, lower limb, excluding foot; M79.10 Myalgia, unspecified site; M25.571 Pain in right ankle and joints of right foot; M25.572 Pain in left ankle and joints of left foot; M77.32 Calcaneal spur, left foot
CPT/HCPCS: 72202; 73120; 73620

== ENCOUNTER 2019-12-14 02:02 | Outpatient (CLI) | payer BC, MEDICAID, SELFPAY ==
[2019-12-14 12:51] LABS: Bilirubin Negative (Negative); Blood Negative (Negative); Clarity Clear (Clear); Glucose Negative (Negative); Ketones Negative (Negative); Leukocyte Esterase Negative (Negative); Nitrite Negative (Negative); Specific Gravity >= 1.030 (1.005-1.025); Urobilinogen 0.2 EU/dL (Up TO 0.2); pH 5.5 (5-8)
[2019-12-14 13:31] LABS: C-Reactive Protein 0.36 mg/dL (0.0-0.3); TSH 1.61 uIU/mL (0.36-3.74)
[2019-12-14 13:42] LABS: Vitamin D 25 Total 26.4 ng/ml (30-100)
[2019-12-14 13:45] LABS: ESR 22 mm/hr (0-30)
[2019-12-15 11:35] LABS: C3 Complement 154 mg/dL (81-157); C4 Complement 33 mg/dL (13-39)
[2019-12-15 12:42] LABS: SS-B (La) Ab, IgG 12.4 Units (<20.0)
[2019-12-15 13:03] LABS: SS-A Antibody 1.6 Units (<20.0)
[2019-12-15 13:22] LABS: Sm (Smith) Ab, IgG 1.8 Units (<20.0)
[2019-12-15 13:55] LABS: dsDNA Ab, IgG <12.3 IU/mL (<30.0)
[2019-12-15 16:37] LABS: Hepatitis C Ab w Rflx HCV PCR Negative (Negative)
[2019-12-15 16:54] LABS: Hepatitis Be Antigen Negative (Negative)
[2019-12-15 16:58] LABS: Hep B Core Antibody Negative (Negative)
== END 2019-12-14 02:22 ==
PROVIDERS: PCP Family Medicine; Visit Provider Internal Medicine
DX: M25.50 Pain in unspecified joint (principal); M79.10 Myalgia, unspecified site; H04.123 Dry eye syndrome of bilateral lacrimal glands; R68.2 Dry mouth, unspecified
CPT/HCPCS: 36415; 82306; 85652; 86704; 86803; 81003; 84443; 86140; 86160; 86225; 86235; 87350

== ENCOUNTER 2020-02-12 03:44 | Outpatient (CLI) | payer BC, MEDICAID, SELFPAY ==
--- NOTE | 2020-02-12 06:15 | DI.MAMMO_ITS ---
EXAM: MG MAMMO DIAGNOSTIC UNI CLINICAL HISTORY: f/u abnormal mammo,6 MO F/U. TECHNIQUE: Craniocaudal and mediolateral oblique Full Field Digital Mammography views of the left br east with Computer Aided Diagnosis followed by Tomosynthesis. COMPARISON: Priors available for comparison. FINDINGS: Mammography/Tomosynthesis: Masses/Architectural Distortion: None seen. Microcalcifictions: No suspicious pleomorphic-type are seen. Skin Thickening/Nipple Retraction: None. IMPRESSION: 1. No evidence of malignancy is noted. 2. Unless there is more urgent need, follow-up screening mammography is recommended, as per [employer] guidelines. 3. The findings were discussed with the patient on the date of the examination. BI-RADS Category 1 - Negative Breast Density - Category B - Scattered areas of fibroglandular density A negative radiographic report should not delay biopsy if a dominant or clinically suspicious mass is present. Up to ten percent of cancers are not identified on mammography. A negative report may reinforce clinical impression. Adenosis and dense breasts may obscure an underlying neoplasm. False positive reports average 6 to 10%. Patient will receive a letter notifying them of these results.
== END 2020-02-12 04:04 ==
PROVIDERS: PCP Family Medicine; Visit Provider Nurse Practitioner Women's Health
DX: R92.8 Other abnormal and inconclusive findings on diagnostic imaging of breast (principal)
CPT/HCPCS: 77061; 77065; G0279

== ENCOUNTER 2020-03-03 02:19 | Outpatient (REF) | payer SELFPAY ==
[2020-03-07 11:31] LABS: HBs Antibody, Quant <3.1 mIU/mL (See Note); Hepatitis B Surface Ab Negative (See Note)
[2020-03-07 12:27] LABS: Measles IgG Antibody Positive (See Note)
[2020-03-07 12:31] LABS: Mumps Antibody IgG Positive (See Note); Rubella IgG Ab (UVM) Positive (See Note)
[2020-03-07 14:16] LABS: TB Interpretation Negative (Negative)
== END 2020-03-03 02:39 ==
LOC: LBO 02:19
PROVIDERS: PCP Family Medicine; Visit Provider Nurse Practitioner Family
DX: Z11.59 Encounter for screening for other viral diseases (principal); Z01.84 Encounter for antibody response examination; Z11.1 Encounter for screening for respiratory tuberculosis
CPT/HCPCS: 36415; 86706; 86480; 86735; 86762; 86765

== ENCOUNTER 2020-03-28 02:49 | Outpatient (CLI) | payer BC, MEDICAID, SELFPAY ==
[2020-03-28 07:33] LABS: Abs Immature Grans 0.02 10^3/uL (0.0-0.06); Absolute Basophil Count 0.02 10^3/uL (0.0-0.2); Absolute Eosinophil Count 0.09 10^3/uL (0.0-0.7); Absolute Lymphocyte Count 1.55 10^3/uL (1.2-3.4); Absolute Monocyte Count 0.39 10^3/uL (0.1-0.8); Absolute Neutrophil Count 2.78 10^3/uL (1.2-6.7); Basophils % 0.4; Eosinophils % 1.9; HCT 40.4 % (36.0-46.0); HGB 13.6 g/dL (11.2-15.7); Immature Grans % 0.4; MCH 31.7 pg (27.0-33.0); MCHC 33.7 % (32.0-36.0); MCV 94.2 fL (80-95); MPV 8.6 fL (8.0-11.0); Neutrophils % 57.3; Nucleated RBC 0 %; Platelet Count 303 10^3/uL (130-400); RBC 4.29 10^6/uL (3.93-5.22); RDW 13.3 % (11.7-14.6); RDW-SD 44.9 fL; WBC 4.85 10^3/uL (4.4-10.8)
[2020-03-28 08:10] LABS: ESR 22 mm/hr (0-30)
[2020-03-28 08:53] LABS: ALT 53 U/L (14-59); AST 21 U/L (15-37); Albumin 3.8 g/dL (3.4-5.0); Alkaline Phosphatase 68 U/L (46-116); Anion Gap 8.3 mmol/L (3-11); BUN 15 mg/dL (7-18); Bilirubin, Total 0.4 mg/dL (0.2-1.0); C-Reactive Protein 0.32 mg/dL (0.0-0.3); CO2 27.7 mmol/L (21.0-32.0); CREATININE 1.08 mg/dL (0.55-1.02); Calcium 9.3 mg/dL (8.5-10.1); Chloride 104 mmol/L (98-107); Estimated GFR 53.49 (mL/min/1.73m2); Glucose 138 mg/dL (74-106); Potassium 4.2 mmol/L (3.5-5.1); Sodium 140 mmol/L (136-145); Total Protein 7.2 g/dL (6.4-8.2)
== END 2020-03-28 03:09 ==
PROVIDERS: PCP Family Medicine; Visit Provider Internal Medicine Rheumatology
DX: M13.88 Other specified arthritis, other site (principal); M12.80 Other specific arthropathies, not elsewhere classified, unspecified site
CPT/HCPCS: 36415; 80053; 85652; 85025; 86140

== ENCOUNTER 2020-04-19 11:52 | Outpatient (CLI) | payer BC, MEDICAID, SELFPAY ==
--- NOTE | 2020-04-19 12:50 | DI.RAD_ITS ---
EXAM: XR SHOULDER RT COMPLETE 2+V CLINICAL HISTORY: upper back and r shoulder pain m25.519 pain in shoulder TECHNIQUE: COMPARISON: No exams were available for comparison FINDINGS: Five views were obtained. There are minimal hypertrophic degenerative changes of the acromioclavicul ar joint. Glenohumeral joint cartilaginous joint space appears well maintained, no other bony or sof t tissue abnormality seen. IMPRESSION: RADIATION DOSE DELIVERED: Total DLP Total DLP
== END 2020-04-19 12:12 ==
PROVIDERS: PCP Family Medicine; Visit Provider Family Medicine
DX: M25.511 Pain in right shoulder (principal)
CPT/HCPCS: 73030

== ENCOUNTER 2020-05-31 01:56 | Outpatient (CLI) | payer OTHER, SELFPAY ==
[2020-06-01 16:33] LABS: COVID-19 RT-PCR UVMMC Result Negative (Negative)
== END 2020-05-31 02:16 ==
PROVIDERS: PCP Family Medicine; Visit Provider Surgery
DX: Z11.52 Encounter for screening for COVID-19 (principal); Z01.818 Encounter for other preprocedural examination
CPT/HCPCS: U0003

== ENCOUNTER 2020-06-03 11:20 | Day surgery (SDC) | payer OTHER, SELFPAY ==
[2020-06-03 11:43] VITALS: BP 126/76; PULSE 81; RESP 18; TEMP 36.4; O2SAT 95
[2020-06-03] MEDS: Lactated Ringers 1,000 ML 80 ML IV (11:59)
--- NOTE | 2020-06-03 12:34 | BOWEL_PTH ---
PATIENT: Nelda Robison LOC: [facility] U#:[id number] AGE/SX: 49/F ROOM: RE06/03/[address]: Maddie Cochran : 1970 BED: DIS: 06/03/2020 SPEC #: [id number] RECD: 06/03/20 13:22 STATUS: BARBARA RE #: [id number] AMADEO: 06/03/20 12:[address]: Maddie Cochran DEPT: Surgical Specimen RECD BY: Ale Esparza ENTERED: 06/03/20 13:23 SP TYPE: Bowel OTHR DR: Saba Christopher MD, DC Tissues: 1 - BIOPSY BOWEL 2 - BIOPSY BOWEL Procedures: GROSS AND MICRO LEVEL 4 Comments: [id number]
--- NOTE | 2020-06-03 12:42 | PDOC.DSDIS_ITS ---
Discharge Plan Disposition Patient Disposition: HOME Condition: Good Discharge Details Reason For Visit: colon scope Attending Provider: Maddie Cochran Primary Care Provider: Saba Christopher Meds and New Rx's Prescriptions: No Action folic acid 1 mg tablet 1 mg PO DAILY RF: 0 methotrexate sodium 2.5 mg tablet 10 mg PO QWEEK RF: 0 ondansetron HCl 4 mg tablet 4 mg PO Q8H Qty: 4 RF: 0 Myrbetriq 50 mg tablet extended release 24 hr 50 mg PO DAILY Qty: 90 RF: 6 ergocalciferol (vitamin D2) 50 mcg (2,000 unit) tablet 50 mcg PO DAILY Qty: 30 RF: 0 albuterol sulfate 90 mcg/actuation HFA aerosol inhaler 2 puff IH Q6H PRN (Reason: bronchospasm) Qty: 18 RF: 11 (DME) Aerochamber MV Spacer See Rx Instructions .ROUTE .MEDSUPPLY Qty: 1 RF: 0 diclofenac sodium [Voltaren] 1 % gel 4 gm TP QID Qty: 100 RF: 3 estradiol 10 mcg insert 10 mcg VG .COMPLEX Qty: 24 RF: 5 epinephrine [EpiPen] 0.3 mg/0.3 mL auto-injector 0.3 mg IM ONCE Qty: 1 RF: 0 famotidine [Pepcid] 40 mg tablet 40 mg PO DAILY Qty: 90 RF: 4 nystatin 100,000 unit/gram powder 1 applic TP BID PRN (Reason: yeast) Qty: 60 RF: 5 pregabalin 50 mg capsule 50 mg PO BID Qty: 60 RF: 4 omeprazole 40 mg capsule,delayed release(DR/EC) 40 mg PO DAILY Qty: 90 RF: 4 ibuprofen 600 mg tablet 600 mg PO Q6H PRN (Reason: pain) Qty: 60 RF: 3 fluticasone propion-salmeterol 250-50 mcg/dose blister with device 1 inh inhalation BID Qty: 60 RF: 8 prednisone 20 mg tablet See Rx Instructions PO DAILY Qty: 11 RF: 0 baclofen 5 mg tablet 5 mg PO BID PRN (Reason: spasms) Qty: 180 RF: 4 acyclovir 800 mg tablet 800 mg PO .COMPLEX PRN (Reason: cold sores) Qty: 35 RF: 2 budesonide-formoterol [Symbicort] 80-4.5 mcg/actuation HFA aerosol inhaler 2 puff IH BID Qty: 10.2 RF: 3 ergocalciferol (vitamin D2) 1,250 mcg (50,000 unit) capsule 50,000 unit PO QWEEK Qty: 13 RF: 4 triamcinolone acetonide [Triderm] 0.5 % cream 1 applic TP BID PRN (Reason: rash on abdomen) RF: 0 escitalopram oxalate [Lexapro] 20 mg tablet 30 mg PO DAILY RF: 0 Discharge Instructions Additional Instructions: Findings:diverticula- mild x2 small polyps. Follow up: will send a letter in 2-3 wks w/ the results of the polyp pathology and when to repeat the scope. Probably in 5 yrs time. Please call if you develop: fevers >101.5 Nausea or Vomiting Abdominal pain that is not transient DAY SURGERY UNIT POST COLONOSCOPY INSTRUCTIONS 1. Because there will be medication in your system for the next 24 hours, you may feel a little sleepy. Your coordination will be affected. Therefore: a. Do not drive or operate dangerous equipment for 24 hours. b. Do not drink alcohol beverages for 24 hours (not even beer). c. Plan to go home and rest for the day. 2. Generally there are no restrictions on your activity after a day or so has gone by, but you may feel a bit fatigued for a few days. 3 After you arrive home you may have a light meal and return to a normal diet as you can tolerate it without feeling sick to your stomach. 4. After surgery, you may feel pain or discomfort. This should be only transient, but if it persists please contact your doctor. 5. If there are any questions regarding the findings of your procedure, please feel free to contact your doctor. 6. If you are unable to contact your doctor with a problem, contact the hospital at [phone]. 7. Continue all your regular medications unless directed otherwise. I understand the above instructions and have no questions. Signature of Patient or Responsible Adult Escort Date/Time Name of Responsible Adult Escort Signature of Nurse Date/Time DIVERTICULAR DISEASE OVERVIEW ? A diverticulum is a pouch-like structure that can form through points of weakness in the muscular wall of the colon (ie, at points where blood vessels pass through the wall). Diverticulosis affects men and women equally. The risk of diverticular disease increases with age. It occurs throughout the world but is seen more commonly in developed countries. WHAT IS DIVERTICULAR DISEASE? Diverticulosis ? Diverticulosis merely describes the presence of diverticula. Diverticulosis is often found during a test done for other reasons, such as flexible sigmoidoscopy, colonoscopy, or barium enema. Most people with div erticulosis have no symptoms and will remain symptom free for the rest of their lives. A person with diverticulosis may have diverticulitis, or diverticular bleeding. Diverticulitis ? Inflammation of a diverticulum (diverticulitis) occurs when there is thinning and breakdown of the diverticular wall. This may be caused by increased pressure within the colon or by hardened particles of stool, which can become lodged within the diverticulum. The symptoms of diverticulitis depend upon the degree of inflammation present. The most common symptom is pain in the left lower abdomen. Other symptoms can include nausea and vomiting, constipation, diarrhea, and urinary symptoms such as pain or burning when urinating or the frequent need to urinate. Diverticulitis is divided into simple and complicated forms. ?Simple diverticulitis, which accounts for 75 percent of cases, is not associated with complications and typically responds to medical treatment without surgery. ?Complicated diverticulitis occurs in 25 percent of cases and usually requires surgery. Complications associated with diverticulitis can include the following: ?Abscess ? a localized collection of pus ?Fistula ? an abnormal tract between two areas that are not normally connected (eg, bowel and bladder) ?Obstruction ? a blockage of the colon ?Peritonitis ? infection involving the space around the abdominal organ ?Sepsis ? overwhelming body-wide infection that can lead to failure of multiple organs Diverticular bleeding ? Diverticular bleeding occurs when a small artery located within a diverticulum is eroded and bleeds into the colon. Diverticular bleeding usually causes painless bleeding from the rectum. In approximately 50 percent of cases, the person will see maroon or bright red blood with bowel movements. Is bleeding with a bowel movement normal? ? It is not normal to see blood in a bowel movement; this can be a sign of several conditions, most of which are not serious (eg, hemorrhoids) but some of which are serious and require immediate treatment. Anyone who sees blood after a bowel movement should consult with their healthcare provider to determine if further testing or evaluation is needed. DIVERTICULOSIS AND DIVERTICULITIS DIAGNOSIS ? Diverticulosis is often found during tests performed for other reasons. ?Barium enema ? This is an x-ray study that uses barium in an enema to view the outline of the lower intestinal tract. This is an older test and has been largely replaced by computed tomography (CT) scan. ?Flexible sigmoidoscopy ? This is an examination of the inside of the sigmoid colon with a thin, flexible tube that contains a camera. ?Colonoscopy ? This is an examination of the inside of the entire colon. ?CT scan ? A CT scan is often used to diagnose diverticulitis and its complica tions. If diverticulitis (not just diverticulosis) is suspected, the above three tests should not be used because of the risk of perforation. TREATMENT Diverticulosis ? People with diverticulosis who do not have symptoms do not require treatment. However, most clinicians recommend increasing fiber in the diet, which can help to bulk the stools and possibly prevent the development of new diverticula, diverticulitis, or diverticular bleeding. Fiber is not proven to prevent these conditions in all patients but may help to control recurrent episodes in some. Increase fiber ? Fruits and vegetables are a good source of fiber. Fiber content of packaged foods can be calculated by reading the nutrition label. Seeds and nuts ? Patients with diverticular disease have historically been advised to avoid whole pieces of fiber (such as seeds, corn, and nuts) because of concern that these foods could cause an episode of diverticulitis. However, this belief is completely unproven. We do not suggest that patients with diverticulosis avoid seeds, corn, or nuts. Diverticulitis ? Treatment of diverticulitis depends upon how severe your symptoms are. Home treatment ? If you have mild symptoms of diverticulitis (mild abdominal pain, usually left lower abdomen), you can be treated at home with a clear liquid diet and oral antibiotics. However, if you develop one or more of the following signs or symptoms, you should seek immediate medical attention: ?Temperature >100.1?F (38?C) ?Worsening or severe abdominal pain ?An inability to tolerate fluids Hospital treatment ? If you have moderate to severe symptoms, you may be hospitalized for treatment. During this time, you are not allowed to eat or drink; antibiotics and fluids are given into a vein. If you develop an abscess of the colon, you may require drainage of the abscess (usually performed by placing a drainage tube across the abdominal wall) or by surgically opening the affected area. Surgery ? If you develop a generalized infection in the abdomen (peritonitis), you will usually require an emergency operation. A two-part operation may be necessary in some cases. ?The first operation involves removal of the diseased colon and creation of a colostomy. A colostomy is an opening between the colon and the skin, where a bag is attached to collect waste from the intestine. The lower end of the colon is temporarily sewed closed to allow it to heal. ?Approximately three to six months later, a second operation is performed to reconnect the two parts of the colon and close the opening in the skin. You are then able to empty your bowels through the rectum. Sometimes patients require up to a year to recover from the first operation, depending on how sick they were. In non-emergency situations, the diseased area of the colon can be removed and the two ends of the colon can be reconnected in one operation, without the need for a colostomy. Surgery versus medical therapy ? An operation to remove the diseased area of the colon may be necessary if you do not improve with medical therapy. After an episode of uncomplicated diverticulitis, elective surgery is generally not required as the risk of another attack or requiring emergency surgery is low. However, patients with persistent symptoms attributable to diverticulitis, a history of complicated diverticulitis, or a compromised immune system should be evaluated for possible surgery to prevent another attack. In such patients, another attack has been associated with a higher risk of complications or . Of course, the decision will also depend in part upon your other medical conditions and ability to undergo surgery. In many cases, an elective operation can be performed laparoscopically, using small incisions, rather than the typical vertical (up and down) abdominal i ncision. Laparoscopic surgery usually allows you to recover more quickly and shortens the hospital stay. After diverticulitis resolves ? After an episode of diverticulitis resolves, if you have not had a recent colonoscopy, the entire length of the colon should be evaluated to determine the extent of disease and to rule out the presence of abnormal lesions such as polyps or cancer. Recommended tests include colonoscopy, barium enema and sigmoidoscopy, or CT colonography. Diverticular bleeding ? Most cases of diverticular bleeding resolve on their own. However, some people will need further testing or treatment to stop bleeding, which may include a colonoscopy, angiography (a treatment that blocks off the bleeding artery), bleeding scan, or surgery. DIVERTICULAR DISEASE PROGNOSIS Diverticulosis ? Over time, diverticulosis may cause no problems or it may cause episodes of bleeding and/or diverticulitis. Approximately 15 to 25 percent of people with diverticulosis will develop diverticulitis, while 5 to 15 percent will develop diverticular bleeding. Diverticulitis ? Approximately 85 percent of people with uncomplicated diverticulitis will respond to medical treatment, while approximately 15 percent of patients will need an operation. After successful treatment for a first attack of diverticulitis, one-third of patients will remain asymptomatic, one- third will have episodic cramps without diverticulitis, and one-third will go on to have a second attack of diverticulitis. The prognosis tends to remain similar following a second attack of diverticulitis. Only 10 percent of people remain symptom-free after a second attack. Subsequent attacks tend to be of similar severity, not increasing in severity as previously believed. High Fiber Diet What is Dietary Fiber? All fiber comes from plants, bushes, loretta or trees. Of course, the ones that we eat provide us with fruits, vegetables and grains. There are many different types of fiber but the three that are most important to the health of the body are: Insoluble Fiber This fiber does not dissolve in water, nor is it fermented by the bacteria residing in the colon. Rather, it retains water and in so doing, helps to pro mote a larger, bulkier and more regular bowel activity. This, in turn, may be important in preventing disorder such as diverticulosis and hemorrhoids, and in sweeping out certain toxins and cancer causing carcinogens. Sources of insoluble fiber are: ? whole grain wheat and other whole grains ? corn bran, including popcorn, unflavored and unsweetened ? nuts and seeds ? potatoes and the skins from most fruits from trees such as apples, bananas and avocados ? many green vegetables such as green beans, zucchini, celery and cauliflower ? some fruit plants such as tomatoes and kiwi Soluble Fiber These fibers are fermented or used by the colon bacteria as a food source or nourishment. When these good bacteria grow and thrive, many health benefits occur in both the colon and the body. Soluble fiber is present in some degree in most edible plant foods, but the ones with the most soluble fiber include: ? legumes such as peas and most beans, including soybeans ? oats, rye and barley ? many fruits such as berries, plums, apples bananas and pears ? certain vegetables such as broccoli and carrots ? most root vegetables ? psyllium husk supplement products Prebiotic Soluble Fiber These are relatively newly discovered soluble plant fibers. The technical name for this fiber is inulin or fructan. When these soluble fibers are fermented by the good colon bacteria, some further significant health benefits have been shown to occur by research in many medical centers. These soluble prebiotic fibers occur in significant amounts in: ? asparagus ? yams ? onions ? garlic ? bananas ? leeks ? agave ? chicory and other root vegetables such as Wanda artichokes ? wheat, rye and barley (smaller amounts) Benefits of a High Fiber Diet The health benefits of a high fiber diet, consumed on a regular basis and reaching recommended amounts (below), are now fairly well-defined. There are some additional benefits in the early research stage with the prebiotic soluble fibers. What is now known regarding a high fiber diet include: Bowel Regularity A high fiber diet promotes regularity with a softer, bulkier and regular stool pattern. This decreases the chance of hemorrhoids, diverticulosis and perhaps colon cancer. Cholesterol and Reduced Triglycerides The soluble fibers are the ones that will reduce cholesterol levels when used on a regular basis. Psyllium husk and prebiotic soluble fiber will also reduce cholesterol. They may also reduce the incidence of coronary heart disease. Oats, flax seeds and legumes or beans are the recommended fibers. Colon Polyps and Cancer It is still not certain if a high fiber diet helps prevent colon cancer. Considerable research suggests that this may occur. Certainly it makes sense to increase regularity and so speed the movement of cancer causing carcinogens through the bowel. In addition, reducing a heavy meat diet reduces the bile flow from the liver in a favorable way. This, too, reduces the amount of carcinogens that reach and are manufactured in the colon. Finally, a high fiber diet, including prebiotic soluble fiber, increases the integrity and health of the wall of the colon. The risk of cancer may be reduced. Colon Wall Integrity A high fiber diet changes the bacterial makeup of the colon toward a more favorable balance. For instance, it is known that those people with obesity, diabetes type 2 and inflammatory bowel disease have a predominance of bad bacteria in the colon. This, in turn, may render the bowel wall weak and allow bacteria and, indeed, even toxins to seep through. A high fiber diet with a modest reduction in animal and meat products may return the bacterial makeup to a more positive balance. This, in particular, has been seen when the soluble fiber prebiotics are added to the diet. Blood Sugar Soluble fiber such as in legumes (beans), oats and in prebiotic fibers slows the absorption of blood sugar and so helps regulate the sugar in the blood. Insoluble fiber on a regular basis is associated with reduced risk of type 2 diabetes. Weight Loss High fiber diets are more filling and give a sense of fullness sooner than an animal and meat based diet does. In addition, the soluble prebiotic fibers have been shown to turn off the hunger hormones produced in the wall of the gut and to increase the hormones that give a sense of fullness. Those hormones are made in the wall of the gut. New medical research has shown that the bacterial makeup in the colon in overweight people is abnormal to the extent that they manufacture and absorb almost twice the number of calories through the colon wall as do normals. Prebiotic fibers (below) will help change this hormonal balancein a favorable way. Bacteria and the Function of the Colon The colon finishes the digestive process. Hopefully, the waste products move through in a nice regular manner. Insoluble fibers help this process by retaining water and so producing a bulkier, softer stool, which is easy to pass. The additional role of the colon is to provide a home for an enormous number of micro-organisms, mostly bacteria. Recent research has shown that there are over 1,000 species of bacteria with a total bacterial count ten times the number of cells in the body. These bacteria play a major role in keeping the colon wall itself healthy. In addition, these good bacteria produce a very strong immune system for the body. They significantly increase calcium absorption and bone density. They provide other documented benefits. It is the soluble fibers in the diet that are so effective in stimulating the growth of good colon bacteria. How Much is Enough? The amount of fiber in food is measured in grams. National nutritional authorities recommend the following amounts of dietary fiber daily. Under Age 50 Over Age 50 Men 38 grams 30 grams Women 25 grams 21 grams For a week or so, it is best to tally the amount of fiber you are consuming. Boxed and packaged foods will have the amount of fiber per serving on the nutrition label. Which Fibers and Which Foods are Best? As noted, healthy fiber is only found in plants. The three major categories are whole grains, fruits and vegetables. Whole Grains Wheat, oats, barley, wild or brown rice, amaranth, buckwheat, bulgur, corn, millet, quinoa, rye, sorghum, teff and triticals. By far, wheat, oats and wild or brown rice are most common. Always buy whole grain products. White bread, baked goods and rolls almost always are made from wheat flour. Wheat flour is white because most of the fiber, vitamins and other nutrients have been removed. Try not buy enriched grains. What this means is that simple white flour has had vitamins added to it by the phototypesetting equipment monitor. The word, enriched, implies a good and healthy product. On the contrary, enriched means that most of the fiber has been removed and a few vitamins added. Fruits Fruits come from trees such as apple and pear or from bushes or loretta. You should eat a wide variety of fruits, preferably with every meal. In many cases, the skin of a fruit such as apple will contain much of the insoluble fiber while the pulp contains most of the soluble fiber. To the extent possible, buy organic fruits as these will have little or no pesticides. Always wash fruit. Vegetables Eat a wide variety of vegetables. They should be a mainstay of lunch and dinners. Frozen vegetables retain as much nutrition and fiber as fresh vegetables. As with fruit, try to buy organic to reduce any residual pesticide ingestion. Wash fresh vegetables thoroughly. Cruciferous vegetables such as broccoli, [place] sprouts and cauliflower contain certain chemicals such as sulforaphane. This substance has very strong anti-cancer properties and should be eaten frequently. Legumes, Beans, Peas and Soybeans These vegetables have plenty of soluble fiber and should be part of a varied vegetable intake. Beans, in particular, contain a certain type of fiber that may lead to harmless gas or bloating. Nuts and Seeds These are rich sources of fiber and are a good substitute for sweets such as candies and baked sweet goods. While nuts and seeds are rich in fiber, they also contain vegetable fat and so can and do add calories. Read the Labels As noted, fresh and frozen foods are usually better. They have good nutrition and few, if any, chemicals added to them. When buying packaged foods and, in particular grains, look for three things: ? The first word on the label should be whole, such as whole wheat or whole grain. ? Check out the calories and the amount of fiber in a serving. ? How many and what other additives or chemicals are added. Fewer is always better. Do you know what each additive does? Some are added not for the benefit of the management intern but rather for manufacturers. These could and do include sugar, artificial flavor, chemicals to prevent oxidation and spoilage, emulsifiers to blend the product. You have to be a detective lieutenant. Fiber Facts, Nuggets and Pearls ? For breakfast you can easily get the day started well by using a high fiber, whole grain cereal. Check the labels. Add fruit such as blueberries and bananas. If you are an egg eater, use whole wheat or grain toast. Adding wheat germ gives you a good fiber kick. ? Always use whole grain or wheat with rolls and sandwiches. Does your fast food store not have them? Perhaps you look elsewhere. Eating an occasional black soto or veggie burger provides variety. ? Snacks should consist of fruit and/or nuts. While nuts are loaded with fiber, they are an energy rich food, meaning they have a lot of calories in a small packet. ? Fruit juices should contain pulp. Clear juices such as clear orange, pear or apple juice contain little fiber and have a lot of fructose. Prune juice is usually high in fiber. ? Homemade soups ? adding fresh or frozen vegetables to a chicken or vegetable stock is a good way to start homemade soup. ? Salads ? adding cooked and then chilled vegetables provide great flavoring to almost any salad. Remember, a chung salad has lots of cooked corn in it. Small slices of apples or oranges and nuts such as chopped walnuts or sliced almonds always adds taste, variety and fiber to almost any salad. ? Fruit ? Try to eat fruit of some type with almost every meal. ? Rethink how you place the various foods on your dinner plate. Reducing the portions of the meat or animal food portion to the side with equal or more portions of vegetables, legumes and fruits portion always allows for more fiber. There was never anything magic about making the meat or animal food portion the main part of the dinner plate. Eating from smaller plates can, over time, trick your mind and fci habit of using a dinner plate. Again, there is nothing magic in an 11, 12, or 13 inch dinner plate. Fiber Supplements There are a variety of fiber supplements available on the food or pharmacy shelves. Psyllium This soluble plant fiber has been used in [place] for over 2,000 years. It is a soluble fiber with mucilage in it. This acts to retain a lot of water and also is fermented by colon bacteria. When 7 grams a day are used, it does lower cholesterol. Metamucil in various forms is psyllium. Methyl Cellulose All the cellulose products come from finely ground wood chips which are then treated in a variety of ways such as boiling in acids. Methyl cellulose is an insoluble fiber which does dissolve in water. It is also an emulsifier, meaning it blends oils and water. Citrucel is methyl cellulose (MC). MC may not be appropriate for Crohn?s disease or ulcerative colitis as several medical studies have shown that certain emulsifiers dissolve the mucous lining of the colon in animals prone to Crohn?s disease. This then allows bacteria to invade the underlying tissue. Inulin Inulin is a soluble prebiotic fiber found in many foods and which are fermented mostly in the left side of the colon. It is available in a supplement as generic inulin and in Fiber Choice. Oligofructose FOS These are also prebiotic fibers. They are fermented very quickly in the right side of the colon. Prebiotin This product is a combination of oligofructose, which feeds the bacteria in the right side of the colon and inulin, which does the same in the left side of the colon. There seems to be a benefit for this particular formula based on medical research. Prebiotic Soluble Fiber These may be the healthiest of all the soluble fibers. They grow in many plants and have had a great deal of research done on them in the last 10-15 years. These fibers are found in asparagus, yams and other root vegetables such as chicory, garlic, onion, leeks and in smaller amounts in wheat. This research has shown the following: ? Increase in good and decrease in bad colon bacteria ? Increase calcium absorption and enhanced bone mass ? Enhanced immune system ? Appetite and weight control by changing the hormone appetite signals to the brain ? May decrease colon cancer incidence ? Reduce or correct a leaky colon Eating a wide variety of plant food up to the recommended amount will likely give you enough prebiotic fiber. Supplements such as Prebiotin can be added to the diet. Short Chain Fatty Acids (SCFA) Some rather remarkable research findings have shown that one of the benefits of ingesting a lot of soluble fiber, in particular the prebiotic ones, results in larger amounts of SCFAs in the colon. These SCFAs are made by the good bacteria in the colon such as Bifidobacter and Lactobacillus. These small molecules have been shown to do the following: ? Enhance the health and integrity of the colon wall ? Provide nourishment for the cells that actually line the colon ? Increases the acidity of the colon which is a very real health benefit ? Stabilize blood sugar for diabetics ? Reduce blood cholesterol and triglyceride ? Significantly enhance immunity ? May be a benefit for Crohn?s disease and ulcerative colitis patients Fiber and Gas Everyone has intestinal gas and that is a good thing. It means that bacteria, hopefully the good ones, are thriving. The normal amount of flatus passed each day depends on sex and what is eaten. The normal number of flatus is 10-20 times a day. When the bacteria that make intestinal gases are growing, it also means that other good bacteria are using the same fibers to grow and produce multiple health benefits, including the production of healthy short-chain fatty acids. These substances are produced quietly in the colon and produce many health-related outcomes. Soluble fiber should always be used in a gradual manner. If too much is consumed at any one time, then excess, but harmless, intestinal gas can occur. People with irritable bowel syndrome are particularly prone to bloating and mild cramping. In this instance, soluble fiber in the diet or supplement should be used in small doses and increased gradually. Finally, prebiotic fibers tend to cause the production of short-chain fatty acids which acidify the colon. This, in turn, reduces or stops the growth of bacteria that make the smelly hydrogen sulfide gases that produce noxious flatus. People who consume many vegetables with prebiotics or take a prebiotic fiber supplement often have non-odoriferous flatus. Fiber and Irritable Bowel Syndrome Irritable bowel syndrome (IBS) is one of the most common disorders of the lower digestive tract. The symptoms of IBS can be quite varied. They can be a mix of several symptoms such as constipation, diarrhea, crampy abdominal discomfort, bloating and gas. An attack of IBS can be triggered by emotional tension and anxiety, poor dietary habits and certain medications. It is now known that infections in the intestine can lead to long-term IBS symptoms. Increased amounts of fiber in the diet can help relieve the symptoms of irritable bowel syndrome by producing soft, bulky stools. This helps to normalize the time it takes for the stool to pass through the colon. Recent medical research with newer techniques has shown some surprising and dramatic findings for IBS patients. Specifically, there is a very significant and abnormal shift of bacteria from those that provide health benefits to those bad bacteria that we really do not want in the gut. The technical name for this bad group of bacteria is called Firmicutes. Along with this abnormal bacterial collection, there is a smoldering low-grade inflammation in the gut wall that may contribute to symptoms. The goal for IBS patients should be to gradually increase the soluble dietary fibers in the diet so as to promote the growth of good bacteria and so suppress the bad ones along with the associated inflammation. IBS patients need to be careful of the amount of soluble fiber they consume. The reason for this is that, while the good colon bacteria thrive on these fibers and produce health benefits, other gas-forming bacteria may generate excessive but harmless gas and subsequent bloating. Thus, soluble plant fibers or a dietary prebiotic supplement should be taken in small initial doses and then gradually increased to tolerance. Fiber and Colon Polyps/Cancer Colon cancer is a major health problem. This disease is most common in Western cultures. It is not seen very often in rural cultures where the diet is mostly plant based. Usually, colon cancer starts out as a colon polyp, a benign mushroom-shaped growth. In time it grows, and in some people it becomes cance stefany. Colon cancer is usually always curable if polyps are removed when found or if surgery is performed at an early stage. It is now known that people can inherit the risk of developing colon cancer, but diet is important, too. As noted, there is a very low rate of colon cancer in residents of countries where grains are unprocessed and retain their fiber. It seems that in the [place] world, cancer-containing agents (carcinogens) remain in contact with the colon wall for a longer time and in higher concentrations. So, a large bulky stool may act to dilute these carcinogens by moving them through the bowel more quickly. Less carcinogenic exposure to the colon may mean fewer colon polyps and less cancer. A very current review of the entire world?s literature on the effect of fiber on colon polyps and cancer prevention has shown rather clearly that for every 10 grams of fiber added to the diet, there is a 10% reduction in incidence of colon cancer. So the recommended 30 gram fiber diet would result in a 30% less chance of getting these tumors. There are also substances produced in the colon by the good bacteria that seem to retard certain pre-cancer factors from developing. They are called short- chain fatty acids (SCFA). See above for description of SCFAs. A high fiber diet increases these substances. So, the combination of dietary fiber and the production of short-chain fatty acids have a clear health benefit. Fiber and Diverticulosis Prolonged, vigorous contraction of the colon over a long period of time may result in diverticulosis. This increased pressure causes small and, eventually, larger ballooning pockets to form. These pockets by themselves cause no problem. However, sometimes they become infected (diverticulitis) or even break open (perforate) causing infection or inflammation within the abdomen (peritonitis). A high fiber diet increases the bulk in the stool and thereby reduces the pressure within the colon. By so doing, the formation of pockets may be reduced or possibly even stopped. In the past, many physicians were fearful that seeds as in tomatoes, nuts or berries were harmful and could get inside these pockets and rattle around, causing damage. We now know that this has never been the case and that these foods contain lots of fiber and are actually beneficial for diverticulosis patients. Certain bulking agents such as psyllium are traditional types of bulk producing supplements. Psyllium is a soluble fiber. Combining it with insoluble fiber as in wheat bran or corn bran (no gluten) can enhance this bulking effect even more. A product containing a prebiotic, psyllium and wheat bran is probably a very good combination for bowel regularity. Prebiotin Regularity/Diverticulosis is one such product. Activity:: No lifting over 20 pounds or strenuous activity x24 hours Diet:: Small light meals x24 hours Discharge Orders Discharge Orders: Discharge Order (Routine); Ordered 06/03/20 Ordered By: Maddie Cochran DS: Diagnosis Discharge Diagnosis (1) Diverticula of colon: Status: Acute (2) Adenomatous polyps: Status: Acute
--- NOTE | 2020-06-03 12:50 | W.COLOREPORT ---
Date of service: 06/03/20 Time of Service: 12:51 Colonoscopy Report Date of procedure: 06/03/20 Pre-op diagnosis general: CRC screen Post-op diagnosis procedure note: other (divertic and polyps x2) Surgeon: Maddie Cochran Anesthesia proc note operative: GETA Pathology: other Complications: None Disposition: same day Prep: Miralax/Dulcolax Retraction Time: 12 Procedure Description: After informed consent was obtained the patient was taken to the procedure room and placed in a left decubitous position. Monitors were applied and a time out was done. The patients name, date of , procedure, allergies to medications and metal in their body was reviewed. The patient was then sedated. Once sedated and comfortable a rectal exam was done. External exam was normal. Internal exam revealed a normal sphincter tone and no palpable masses. The scope was then introduced and retrofelexed. No internal hemorrhoids were identified. The scope was then advanced to the cecum [] difficulty. The TI and appendiceal orifice were identified. The prep was poor-there was solid stool within the right colon. I did reach the cecum. But any lesions less than a centimeter when of the next. There is still a lot of fluid in the transverse and left colon. In the left colon we could suction the stomach. But in the transverse colon there was a lot material within this and it kept clogging the scope so I did not suctioned thoroughly. So there is chance that any lesions could have been missed in the transverse colon. There are 2 small polyps at 30 cm and 20 cm. These are 5 mm polyps that are flat and not ulcerated. These are removed with a cold biting forcep. All specimen is retrieved and no bleeding is noted. She does have minor diverticuli confined to the sigmoid colon. There is no signs of active bleeding or infection from these. The scope was then slowly retracted over 10 minutes back into the rectum. The scope was removed and the patient was woken up and taken back to Same day surgery in stable condition. The patient tolerated the procedure well and there were no immediate complications. Follow up: The patient should follow up in 3-5 years unless they develop changes in bowel habits or other new gastrointestinal complaints. Next colonoscopy she should be with 2-day prep.
[2020-06-03 13:22] VITALS: BP 122/75; PULSE 64; RESP 18; TEMP 36.3; O2SAT 96
== END 2020-06-03 13:45 | disposition home or self-care (01) ==
PROVIDERS: PCP Family Medicine; Visit Provider Surgery
PROC: 0DJD8ZZ Inspection of Lower Intestinal Tract, Via Natural or Artificial Opening Endoscopic (ICD-10-PCS; CPT 45378; principal; 2020-06-03 11:45)
DX: Z12.11 Encounter for screening for malignant neoplasm of colon (principal); K63.5 Polyp of colon; K57.30 Diverticulosis of large intestine without perforation or abscess without bleeding; K21.9 Gastro-esophageal reflux disease without esophagitis
CPT/HCPCS: 45380; 88305

== ENCOUNTER 2020-07-22 11:38 | Outpatient (CLI) | payer OTHER, MEDICAID, SELFPAY ==
[2020-07-22 13:51] LABS: Abs Immature Grans 0.02 10^3/uL (0.0-0.06); Absolute Basophil Count 0.03 10^3/uL (0.0-0.2); Absolute Eosinophil Count 0.11 10^3/uL (0.0-0.7); Absolute Lymphocyte Count 1.89 10^3/uL (1.2-3.4); Absolute Monocyte Count 0.28 10^3/uL (0.1-0.8); Absolute Neutrophil Count 3.31 10^3/uL (1.2-6.7); Basophils % 0.5; HCT 37.7 % (36.0-46.0); HGB 12.6 g/dL (11.2-15.7); Immature Grans % 0.4; Lymphocytes % 33.5; MCHC 33.4 % (32.0-36.0); MCV 92.9 fL (80-95); MPV 8.4 fL (8.0-11.0); Neutrophils % 58.6; Nucleated RBC 0 %; Platelet Count 332 10^3/uL (130-400); RBC 4.06 10^6/uL (3.93-5.22); RDW 13.4 % (11.7-14.6); RDW-SD 45.4 fL; WBC 5.64 10^3/uL (4.4-10.8)
[2020-07-22 14:07] LABS: Hemoglobin A1C 5.9 % (<5.7)
[2020-07-22 14:56] LABS: ALT 53 U/L (14-59); AST 23 U/L (15-37); Albumin 3.5 g/dL (3.4-5.0); Alkaline Phosphatase 66 U/L (46-116); Anion Gap 9.3 mmol/L (3-11); BUN 16 mg/dL (7-18); Bilirubin, Total 0.3 mg/dL (0.2-1.0); C-Reactive Protein 0.59 mg/dL (0.0-0.3); CO2 26.7 mmol/L (21.0-32.0); CREATININE 0.9 mg/dL (0.55-1.02); Calcium 9.4 mg/dL (8.5-10.1); Chloride 105 mmol/L (98-107); Glucose 116 mg/dL (74-106); Potassium 4.1 mmol/L (3.5-5.1); Sodium 141 mmol/L (136-145)
[2020-07-22 19:13] LABS: ESR 23 mm/hr (<or=30)
== END 2020-07-22 11:39 | disposition home or self-care (01) ==
LOC: LBO 11:39
PROVIDERS: PCP Family Medicine; Visit Provider Internal Medicine Rheumatology
DX: M19.90 Unspecified osteoarthritis, unspecified site (principal); E11.9 Type 2 diabetes mellitus without complications; E66.9 Obesity, unspecified
CPT/HCPCS: 36415; 80053; 85652; 83036; 85025; 86140

== ENCOUNTER 2020-08-09 03:15 | Outpatient (CLI) | payer OTHER, MEDICAID, SELFPAY ==
[2020-08-10 02:31] LABS: COVID-19 RT-PCR UVMMC Result Positive (Negative)
== END 2020-08-09 03:16 | disposition home or self-care (01) ==
PROVIDERS: PCP Family Medicine; Visit Provider Nurse Practitioner Family
DX: Z20.822 Contact with and (suspected) exposure to COVID-19 (principal)
CPT/HCPCS: U0003

== ENCOUNTER 2020-10-04 12:05 | Outpatient (REF) | payer OTHER, MEDICAID, SELFPAY ==
--- NOTE | 2020-10-04 11:00 | PAPFT_PTH ---
PATIENT: Nelda Robison LOC: [facility] U#:[id number] AGE/SX: 50/F ROOM: RE10/04/[address]: Sophia Alvarez NP : 1970 BED: DIS: 10/04/2020 SPEC #: [id number] RECD: 10/04/20 15:43 STATUS: BARBARA REYES #: [id number] AMADEO: 10/04/20 11:[address]: Sophia Alvarez NP DEPT: [facility] Cytology RECD BY: Marybeth Vega ENTERED: 10/04/20 15:43 SP TYPE: PAPFT OTHR DR: Saba Christopher MD, DC Tissues: 1 - CX/ENDOCX FOR PAP SMEARS Procedures: PAP THIN PREP/UVM Screening HPV DNA PROBE Comments: [id number]
== END 2020-10-04 12:06 | disposition home or self-care (01) ==
LOC: LBN 12:05
PROVIDERS: PCP Family Medicine; Visit Provider Nurse Practitioner Women's Health
DX: Z12.4 Encounter for screening for malignant neoplasm of cervix (principal); R87.610 Atypical squamous cells of undetermined significance on cytologic smear of cervix (ASC-US); Z11.51 Encounter for screening for human papillomavirus (HPV); R87.810 Cervical high risk human papillomavirus (HPV) DNA test positive
CPT/HCPCS: 88142; 87624

== ENCOUNTER 2020-10-12 02:14 | Outpatient (CLI) | payer OTHER, MEDICAID, SELFPAY ==
--- NOTE | 2020-10-12 14:50 | DI.MAMMO_ITS ---
Exam(s) MAMMO SCREENING EXAM: MAMMO SCREENING CLINICAL HISTORY: screening,Z12.39. TECHNIQUE: Bilateral full field digital CC and MLO mammographic images were obtained with 3D tomosyn thesis and utilizing computer aided detection (CAD). COMPARISON: Prior mammograms dating back to 2010, the most recent being July [address] [facility] January 2020. Left breast ultrasound performed July 2019 was also reviewed. FINDINGS: There are no CAD designations Previously described small nodule upper-outer quadrant left breast is unchanged and most probably kirk ign intramammary lymph node given that it is not evident on prior ultrasound examination. Another as ymmetric density pole more posteriorly in left breast is also unchanged from prior studies. However, on the present study there is an asymmetric density in the opposite-right breast upper outer quadrant approximately 9 cm in from the nipple which is more evident than on prior studies and measu res 5 x 4 millimeters. Another nodular density posteriorly in the right breast is unchanged from prior studies and probably benign lymph node. There are no malignant-appearing microcalcifications in either breast.. No new a rchitectural distortion or skin thickening-traction IMPRESSION: 1. New asymmetric density in the upper-outer quadrant of the right breast approximately 9 cm in from the nipple. Spot compression views and possible ultrasound recommended 2. Stable benign-appearing nodule upper outer quadrant left which probably benign lymph node BI-RADS Category 0 - Assessment Incomplete: Need additional imaging evaluation Breast Density - Category B - Scattered areas of fibroglandular density Breast density Category C or D implies that the patient has dense breast tissue. Dense breast tissue can make it harder to find cancer on a mammogram. Dense breast tissue is also associated with an incr eased risk of breast cancer. This information about the result of the mammogram report was provided to the patient to raise their awareness. Use this report when you speak with the patient about their risks for breast cancer, which includes their family history. At that time, you may recommend additional screening tests (Ultrasoun d or MRI) as these tests may add significant information. A negative radiographic report should not delay biopsy if a dominant or clinically suspicious mass is present. Up to ten percent of cancers are not identified on mammography. A negative report may reinforce clinical impression. Adenosis and dense breasts may obscure an underlying neoplasm. False positive reports average 6 to 10%. Patient will receive a letter notifying them of these results.
== END 2020-10-12 02:34 ==
PROVIDERS: PCP Family Medicine; Visit Provider Nurse Practitioner Women's Health
DX: Z12.31 Encounter for screening mammogram for malignant neoplasm of breast (principal); R92.8 Other abnormal and inconclusive findings on diagnostic imaging of breast
CPT/HCPCS: 77063; 77067

== ENCOUNTER 2020-10-14 03:14 | Outpatient (CLI) | payer OTHER, MEDICAID, SELFPAY ==
--- NOTE | 2020-10-14 | DI.NM_ITS ---
Exam(s) NM BONE SCAN WHOLE BODY GRP EXAM: NM BONE SCAN WHOLE BODY GRP CLINICAL HISTORY: MYALGIA,M79.10,POSITIVE MONIE,R76.8,POLYARTHRALGIA,M25.50. COMPARISON: CR XR THORACIC SPINE COMPLETE from 06/16/2019 CR,RF RF BARIUM SWALLOW from 07/08/2019 CR XR LUMBAR SPINE COMPLETE from 10/02/2019 CR XR SACROILIAC JOINTS from 12/14/2019 CR XR SHOULDER RT COMPLETE 2+V from 04/19/2020 TECHNIQUE: Whole body bone scan was performed with intravenous infusion of 25.2 millicuries of techn etium 99 labeled methylene diphosphonate. There is normal renal and urinary bladder uptake. There i s artifactual uptake on the skin at the level of the pelvis posteriorly. Bony uptake appears within normal limits with the exception small focus of increased uptake seen in the right lateral upper cerv ical spine posteriorly. This is of fairly low intensity focus. Questionable minimally increased upt bernard also seen at the level of the L4-5 disc space, this probably correlates with degenerative changes as seen on radiographs of the lumbar spine in September 2019. FINDINGS: Essentially unremarkable whole-body bone scan. If clinically indicated, additional evaluation with r adiographs of the cervical spine could be performed to evaluate a small focus of increased uptake at the level of the upper cervical spine on the right posteriorly. IMPRESSION: DATA REPOSITORY:
--- NOTE | 2020-10-14 10:23 | DI.RAD_ITS ---
Exam(s) XR CHEST 2V PA LATERAL EXAM: XR CHEST 2V PA LATERAL CLINICAL HISTORY: POLYARTHRALGIA,M25.50,MYALGIA,M79.10,POSITIVE MONIE,R76.8 TECHNIQUE: 2D digital imaging was performed. COMPARISON: CR,RF RF BARIUM SWALLOW from 07/08/2019 FINDINGS: The heart is not enlarged. The lungs are clear and well expanded. No pleural effusion seen. Mediastin al contours appear intact. IMPRESSION: Normal chest. RADIATION DOSE DELIVERED: Total DLP
== END 2020-10-14 03:34 ==
PROVIDERS: PCP Family Medicine; Visit Provider Internal Medicine Rheumatology
DX: M25.59 Pain in other specified joint (principal); M79.18 Myalgia, other site; R76.8 Other specified abnormal immunological findings in serum
CPT/HCPCS: 78306; 71046

== ENCOUNTER 2020-10-19 11:28 | Outpatient (CLI) | payer OTHER, MEDICAID, SELFPAY ==
[2020-10-19 14:52] LABS: Abs Immature Grans 0.02 10^3/uL (0.0-0.06); Absolute Basophil Count 0.02 10^3/uL (0.0-0.2); Absolute Eosinophil Count 0.13 10^3/uL (0.0-0.7); Absolute Lymphocyte Count 1.86 10^3/uL (1.2-3.4); Absolute Monocyte Count 0.49 10^3/uL (0.1-0.8); Absolute Neutrophil Count 3.03 10^3/uL (1.2-6.7); Basophils % 0.4; ESR 11 mm/hr (0-30); Eosinophils % 2.3; HCT 38.8 % (36.0-46.0); HGB 12.9 g/dL (11.2-15.7); Immature Grans % 0.4; Lymphocytes % 33.5; MCH 29.8 pg (27.0-33.0); MCHC 33.2 % (32.0-36.0); MCV 89.6 fL (80-95); MPV 8.9 fL (8.0-11.0); Monocytes % 8.8; Neutrophils % 54.6; Nucleated RBC 0 %; Platelet Count 307 10^3/uL (130-400); RBC 4.33 10^6/uL (3.93-5.22); RDW 13.5 % (11.7-14.6); RDW-SD 44.3 fL; WBC 5.55 10^3/uL (4.4-10.8)
[2020-10-19 16:11] LABS: ALT 41 U/L (14-59); AST 19 U/L (15-37); Albumin 3.7 g/dL (3.4-5.0); Alkaline Phosphatase 74 U/L (46-116); Anion Gap 7.5 mmol/L (3-11); BUN 16 mg/dL (7-18); Bilirubin, Total 0.2 mg/dL (0.2-1.0); C-Reactive Protein 0.15 mg/dL (0.0-0.3); CO2 28.5 mmol/L (21.0-32.0); CREATININE 0.9 mg/dL (0.55-1.02); Calcium 9.4 mg/dL (8.5-10.1); Chloride 105 mmol/L (98-107); Glucose 141 mg/dL (74-106); Potassium 4.2 mmol/L (3.5-5.1); Sodium 141 mmol/L (136-145); Total Protein 7.2 g/dL (6.4-8.2)
== END 2020-10-19 11:29 | disposition home or self-care (01) ==
LOC: LBO 11:30
PROVIDERS: PCP Family Medicine; Visit Provider Internal Medicine Rheumatology
DX: M19.90 Unspecified osteoarthritis, unspecified site (principal)
CPT/HCPCS: 36415; 80053; 85652; 85025; 86140

== ENCOUNTER 2020-10-26 01:16 | Outpatient (CLI) | payer OTHER, MEDICAID, SELFPAY ==
--- NOTE | 2020-10-26 | DI.US_ITS ---
Exam(s) US BREAST RT LIMITED EXAM: US BREAST RT LIMITED CLINICAL HISTORY: F/U MAMMO, NEW ASYMMETRIC DENSITY. TECHNIQUE: Craniocaudal and mediolateral oblique Full Field Digital Mammography views of the right b reast with Computer Aided Diagnosis followed by Tomosynthesis and right breast ultrasound. COMPARISON: Priors available for comparison. FINDINGS: Mammography/Tomosynthesis: Masses/Architectural Distortion: The nodular area of concern compresses away and does not persist on the spot compression views. Stable asymmetric breast tissue is seen in the posterior right breast. Microcalcifictions: No suspicious pleomorphic-type are seen. Skin Thickening/Nipple Retraction: None. Right breast US: Targeted right breast ultrasound was performed. Echotexture: Normal appearance of the glandular tissue. Shadowing: No suspicious foci. Cyst: None. Solid lesions: None seen. Ductal dilation: None. IMPRESSION: 1. No evidence of malignancy is noted. 2. A six-month follow-up right mammogram is recommended for re-evaluation. 3. The findings were discussed with the patient on the date of the examination. BI-RADS Category 3 - 6 month - Probably Benign Finding: Recommend follow-up imaging in 6 months Breast Density - Category B - Scattered areas of fibroglandular density Breast density Category C or D implies that the patient has dense breast tissue. Dense breast tissue can make it harder to find cancer on a mammogram. Dense breast tissue is also associated with an incr eased risk of breast cancer. This information about the result of the mammogram report was provided to the patient to raise their awareness. Use this report when you speak with the patient about their risks for breast cancer, which includes their family history. At that time, you may recommend additional screening tests (Ultrasoun d or MRI) as these tests may add significant information. A negative radiographic report should not delay biopsy if a dominant or clinically suspicious mass is present. Up to ten percent of cancers are not identified on mammography. A negative report may reinforce clinical impression. Adenosis and dense breasts may obscure an underlying neoplasm. False positive reports average 6 to 10%. Patient will receive a letter notifying them of these results.
--- NOTE | 2020-10-26 11:12 | DI.MAMMO_ITS ---
Exam(s) MAMMO SCREEN CALL BACK UNI EXAM: MAMMO SCREEN CALL BACK UNI CLINICAL HISTORY: F/U MAMMO, STABLE NODULE. TECHNIQUE: Craniocaudal and mediolateral oblique Full Field Digital Mammography views of the left br east with Computer Aided Diagnosis. COMPARISON: Priors available for comparison. FINDINGS: Mammography/Tomosynthesis: Masses/Architectural Distortion: There is a stable area of nodularity in the upper outer quadrant of the left breast. Microcalcifictions: No suspicious pleomorphic-type are seen. Skin Thickening/Nipple Retraction: None. IMPRESSION: 1. No evidence of malignancy is noted. 2. Unless there is more urgent need, follow-up screening mammography is recommended, as per [place] [employer] guidelines. BI-RADS Category 2 - Benign Findings Breast Density - Category B - Scattered areas of fibroglandular density Breast density Category C or D implies that the patient has dense breast tissue. Dense breast tissue can make it harder to find cancer on a mammogram. Dense breast tissue is also associated with an incr eased risk of breast cancer. This information about the result of the mammogram report was provided to the patient to raise their awareness. Use this report when you speak with the patient about their risks for breast cancer, which includes their family history. At that time, you may recommend additional screening tests (Ultrasoun d or MRI) as these tests may add significant information. A negative radiographic report should not delay biopsy if a dominant or clinically suspicious mass is present. Up to ten percent of cancers are not identified on mammography. A negative report may reinforce clinical impression. Adenosis and dense breasts may obscure an underlying neoplasm. False positive reports average 6 to 10%. Patient will receive a letter notifying them of these results.
--- NOTE | 2020-10-26 11:13 | DI.MAMMO_ITS ---
Exam(s) MG mammo screen call back UNI EXAM: MG mammo screen call back UNI and limited right breast ultrasound CLINICAL HISTORY: . TECHNIQUE: Craniocaudal and mediolateral oblique Full Field Digital Mammography views of the right b reast with Computer Aided Diagnosis followed by Tomosynthesis and right breast ultrasound. COMPARISON: Priors available for comparison. FINDINGS: Mammography/Tomosynthesis: Masses/Architectural Distortion: The nodular area of concern compresses away and is not visualized on the spot compression views. Stable asymmetric breast tissue is seen in the posterior right breast. Microcalcifictions: No suspicious pleomorphic-type are seen. Skin Thickening/Nipple Retraction: None. Right breast US: Targeted right breast ultrasound was performed. Echotexture: Normal appearance of the glandular tissue. Shadowing: No suspicious foci. Cyst: None. Solid lesions: None seen. Ductal dilation: None. IMPRESSION: 1. No evidence of malignancy is noted. 2. A six-month follow-up mammogram is recommended for re-evaluation. 3. The findings were discussed with the patient on the date of the examination. BI-RADS Category 3 - 6 month - Probably Benign Finding: Recommend follow-up imaging in 6 months Breast Density - Category B - Scattered areas of fibroglandular density Breast density Category C or D implies that the patient has dense breast tissue. Dense breast tissue can make it harder to find cancer on a mammogram. Dense breast tissue is also associated with an incr eased risk of breast cancer. This information about the result of the mammogram report was provided to the patient to raise their awareness. Use this report when you speak with the patient about their risks for breast cancer, which includes their family history. At that time, you may recommend additional screening tests (Ultrasoun d or MRI) as these tests may add significant information. A negative radiographic report should not delay biopsy if a dominant or clinically suspicious mass is present. Up to ten percent of cancers are not identified on mammography. A negative report may reinforce clinical impression. Adenosis and dense breasts may obscure an underlying neoplasm. False positive reports average 6 to 10%. Patient will receive a letter notifying them of these results.
== END 2020-10-26 01:36 ==
PROVIDERS: PCP Family Medicine; Visit Provider Nurse Practitioner Women's Health
DX: Z12.31 Encounter for screening mammogram for malignant neoplasm of breast (principal); R92.8 Other abnormal and inconclusive findings on diagnostic imaging of breast; N64.59 Other signs and symptoms in breast
CPT/HCPCS: 76642; 77063; 77067

== ENCOUNTER 2020-11-04 12:15 | Outpatient (REF) | payer OTHER, MEDICAID, SELFPAY ==
--- NOTE | 2020-11-04 11:40 | CER_PTH ---
PATIENT: Nelda Robison LOC: [facility] U#:[id number] AGE/SX: 50/F ROOM: RE11/04/[address]: Meme Moses DO : 1970 BED: DIS: 11/04/2020 SPEC #: [id number] RECD: 11/04/20 12:58 STATUS: BARBARA RE #: [id number] AMADEO: 11/04/20 11:[address]: Meme oMses DEPT: Surgical Specimen RECD BY: Ale Esparza ENTERED: 11/04/20 12:59 SP TYPE: CER OTHR DR: Saba Christopher MD, DC Tissues: 1 - CERVICAL BIOPSY 2 - ENDOCERVICAL BX/CURRETTE Procedures: GROSS AND MICRO LEVEL 4 Comments: [id number]
== END 2020-11-04 12:16 | disposition home or self-care (01) ==
LOC: LBN 12:15
PROVIDERS: PCP Family Medicine; Visit Provider Obstetrics & Gynecology
DX: N88.8 Other specified noninflammatory disorders of cervix uteri (principal); N87.9 Dysplasia of cervix uteri, unspecified; R87.610 Atypical squamous cells of undetermined significance on cytologic smear of cervix (ASC-US); R87.810 Cervical high risk human papillomavirus (HPV) DNA test positive
CPT/HCPCS: 88305

== ENCOUNTER 2020-12-02 04:48 | Outpatient (CLI) | payer OTHER, MEDICAID, SELFPAY ==
[2020-12-02 16:18] LABS: ALT 42 U/L (14-59); AST 20 U/L (15-37); Albumin 3.7 g/dL (3.4-5.0); Alkaline Phosphatase 72 U/L (46-116); Anion Gap 11.9 mmol/L (3-11); BUN 11 mg/dL (7-18); Bilirubin, Total 0.4 mg/dL (0.2-1.0); CO2 24.1 mmol/L (21.0-32.0); CREATININE 0.9 mg/dL (0.55-1.02); Calcium 9.3 mg/dL (8.5-10.1); Chloride 104 mmol/L (98-107); Glucose 135 mg/dL (74-106); Potassium 4.1 mmol/L (3.5-5.1); Sodium 140 mmol/L (136-145); Total Protein 7.3 g/dL (6.4-8.2)
[2020-12-05 10:04] LABS: HBs Antibody, Quant 102.6 mIU/mL (See Note); Hepatitis B Surface Ab Positive (See Note)
== END 2020-12-02 04:49 | disposition home or self-care (01) ==
LOC: LBO 04:50
PROVIDERS: PCP Family Medicine; Visit Provider Nurse Practitioner Family
DX: Z02.1 Encounter for pre-employment examination (principal); E66.9 Obesity, unspecified; Z11.59 Encounter for screening for other viral diseases
CPT/HCPCS: 36415; 80053; 86706

== ENCOUNTER 2021-03-24 03:41 | Outpatient (CLI) | payer OTHER, MEDICAID, SELFPAY ==
[2021-03-24 07:29] LABS: Abs Immature Grans 0.02 10^3/uL (0.0-0.06); Absolute Basophil Count 0.03 10^3/uL (0.0-0.2); Absolute Eosinophil Count 0.12 10^3/uL (0.0-0.7); Absolute Lymphocyte Count 1.83 10^3/uL (1.2-3.4); Absolute Monocyte Count 0.55 10^3/uL (0.1-0.8); Absolute Neutrophil Count 3.97 10^3/uL (1.2-6.7); Basophils % 0.5; Eosinophils % 1.8; HCT 38.2 % (36.0-46.0); HGB 12.2 g/dL (11.2-15.7); Immature Grans % 0.3; Lymphocytes % 28.1; MCH 27.7 pg (27.0-33.0); MCHC 31.9 % (32.0-36.0); MCV 86.6 fL (80-95); MPV 8.7 fL (8.0-11.0); Monocytes % 8.4; Neutrophils % 60.9; Nucleated RBC 0 %; Platelet Count 349 10^3/uL (130-400); RBC 4.41 10^6/uL (3.93-5.22); RDW 13.2 % (11.7-14.6); RDW-SD 41.3 fL; WBC 6.52 10^3/uL (4.4-10.8)
[2021-03-24 08:35] LABS: ALT 41 U/L (14-59); AST 19 U/L (15-37); Albumin 3.8 g/dL (3.4-5.0); Alkaline Phosphatase 80 U/L (46-116); Anion Gap 10.4 mmol/L (3-11); BUN 20 mg/dL (7-18); Bilirubin, Total 0.3 mg/dL (0.2-1.0); CO2 28.6 mmol/L (21.0-32.0); CREATININE 0.9 mg/dL (0.55-1.02); Calcium 9.6 mg/dL (8.5-10.1); Chloride 103 mmol/L (98-107); Glucose 163 mg/dL (74-106); Potassium 4.1 mmol/L (3.5-5.1); Sodium 142 mmol/L (136-145); Total Protein 7.3 g/dL (6.4-8.2)
== END 2021-03-24 03:42 | disposition home or self-care (01) ==
LOC: LBO 03:41
PROVIDERS: PCP Family Medicine; Visit Provider Internal Medicine Rheumatology
DX: M19.90 Unspecified osteoarthritis, unspecified site (principal); Z79.899 Other long term (current) drug therapy
CPT/HCPCS: 36415; 80053; 85025

== ENCOUNTER 2021-04-04 08:38 | Outpatient (CLI) | payer OTHER, MEDICAID, SELFPAY ==
[2021-04-04 10:31] LABS: Hemoglobin A1C 6.3 % (<5.7)
== END 2021-04-04 08:39 | disposition home or self-care (01) ==
LOC: LBO 08:38
PROVIDERS: PCP Family Medicine; Visit Provider Family Medicine
DX: E11.9 Type 2 diabetes mellitus without complications (principal)
CPT/HCPCS: 36415; 83036

== ENCOUNTER 2021-05-09 10:31 | Outpatient (CLI) | payer OTHER, MEDICAID, SELFPAY ==
[2021-05-09 15:08] LABS: Hemoglobin A1C 6.4 % (<5.7)
[2021-05-09 16:18] LABS: Cholesterol 193 mg/dL (<200); HDL Cholesterol 39 mg/dL (40-60); Triglyceride 492 mg/dL (<150)
[2021-05-09 16:58] LABS: LDL CHOLESTEROL 101 mg/dL (<100)
== END 2021-05-09 10:32 | disposition home or self-care (01) ==
LOC: LBO 10:32
PROVIDERS: PCP Family Medicine; Visit Provider Nurse Practitioner
DX: Z00.00 Encounter for general adult medical examination without abnormal findings (principal); E11.9 Type 2 diabetes mellitus without complications; Z13.220 Encounter for screening for lipoid disorders
CPT/HCPCS: 36415; 80061; 83721; 83036

== ENCOUNTER 2021-05-15 02:48 | Outpatient (CLI) | payer OTHER, MEDICAID, SELFPAY ==
--- NOTE | 2021-05-15 | DI.US_ITS ---
Exam(s) MG MAMMO DIAGNOSTIC UNI US BREAST RT LIMITED EXAM: MG MAMMO DIAGNOSTIC UNI -RIGHT AND LIMITED RIGHT BREAST ULTRASOUND CLINICAL HISTORY: 6 month f/u R breast,r92.8. TECHNIQUE: Unilateral spot mammographic images were obtained with 3D tomosynthesis technique and uti lizing computer aided detection (CAD). COMPARISON: Prior mammograms reviewed, most recent being September and to call back 2020. Ultrasound October 2020 was also reviewed. FINDINGS: Previously described nodular density in the upper quadrant of the right appears unchanged. Performed additional spot compression CC view and this brings out 2nd benign-appearing nodule at this location. No malignant-appearing microcalcification groups in this region. LIMITED RIGHT BREAST ULTRASOUND: This reveals a solitary finding at the 10 o'clock position, approxim ately 6 cm in from the nipple, measuring 6 x 3 millimeters and probably a benign lymph node, correspo nd to 1 of the 2 findings on the diagnostic mammogram. This exhibits neutral through transmission. No other focal ultrasound findings in the lateral aspect of the breast. IMPRESSION: Right breast upper outer quadrant findings as described above, most probably benign. Appropriate follow-up is to repeat diagnostic views and ultrasound at time for next yearly mammogram which is in 6 months. These findings must be stab lesions being stable for 2 years on six-month basis prior to returning to her yearly mammogram schedule. The patient was informed of the findings and follow-up recommendations prior to leaving the [facility] today. BI-RADS Category 3 - 6 month - Probably Benign Finding: Recommend follow-up mammography in 6 months Breast Density - Category B - Scattered areas of fibroglandular density Breast density Category C or D implies that the patient has dense breast tissue. Dense breast tissue can make it harder to find cancer on a mammogram. Dense breast tissue is also associated with an incr eased risk of breast cancer. This information about the result of the mammogram report was provided to the patient to raise their awareness. Use this report when you speak with the patient about their risks for breast cancer, which includes their family history. At that time, you may recommend additional screening tests (Ultrasoun d or MRI) as these tests may add significant information. A negative radiographic report should not delay biopsy if a dominant or clinically suspicious mass is present. Up to ten percent of cancers are not identified on mammography. A negative report may reinforce clinical impression. Adenosis and dense breasts may obscure an underlying neoplasm. False positive reports average 6 to 10%. Patient will receive a letter notifying them of these results.
== END 2021-05-15 03:08 ==
PROVIDERS: PCP Family Medicine; Visit Provider Nurse Practitioner Women's Health
DX: R92.8 Other abnormal and inconclusive findings on diagnostic imaging of breast (principal); N63.11 Unspecified lump in the right breast, upper outer quadrant
CPT/HCPCS: 76642; 77061; 77065; G0279

== ENCOUNTER 2021-06-18 07:16 | Emergency (ER) | payer OTHER, MEDICAID, SELFPAY ==
[2021-06-18 07:24] VITALS: BP 152/92; PULSE 84; RESP 18; TEMP 36.3; O2SAT 98
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
== END 2021-06-18 07:33 | disposition home or self-care (01) ==
LOC: ER 07:55
PROVIDERS: Emergency Provider Student in an Organized Health Care Education/Training Program; PCP Family Medicine
DX: L03.032 Cellulitis of left toe (principal)
CPT/HCPCS: 99283

== ENCOUNTER 2021-07-26 02:11 | Outpatient (CLI) | payer OTHER, MEDICAID, SELFPAY ==
[2021-07-26 09:37] LABS: Source Nasal/Nares
[2021-07-26 14:08] LABS: COVID-19 PCR Negative (Negative)
== END 2021-07-26 02:12 | disposition home or self-care (01) ==
LOC: LBO 02:11
PROVIDERS: PCP Family Medicine; Visit Provider Surgery
DX: Z01.818 Encounter for other preprocedural examination (principal); Z20.822 Contact with and (suspected) exposure to COVID-19
CPT/HCPCS: 87635

== ENCOUNTER 2021-07-28 09:44 | Day surgery (SDC) | payer OTHER, MEDICAID, SELFPAY ==
--- NOTE | 2021-07-27 20:49 | W.PM.ENDDOP ---
Date of service: 07/28/21 Time of Service: 21:13 Endoscopy Report DATE OF PROCEDURE: 07/28/21 PRE-OP DIAGNOSIS: intractible nausea POST-OP DIAGNOSIS: other (Mild gastritis and fundic gland polyps) SURGEON: Maddie Cochran ANESTHESIA TYPE: General:No Airway PATHOLOGY: other COMPLICATIONS: None DISPOSITION: same day PROCEDURE DESCRIPTION: After informed consent was obtained the patient was take to the procedure room and placed in a supine position. Monitors were applied and a time out was done. The patients name, date of , procedure type, allergies to medications and metal in their body was reviewed. A bite block was placed and the patient was sedated. Once sedated and comfortable the gastroscope was advanced through the oropharynx which was grossly normal into the esophagus. The proximal and mid-esophagus were normal. In the distal esophagus there was no: Erosions, varices, diverticula, or stricture. The scope was advanced into the stomach and through the pylorus into the 3rd portion of the duodenum. The duodenum was noted to be normal. Biopsies were done, all specimens retrieved and no bleeding is noted The scope was retracted back into the stomach and biopsies were done to rule out H. pylori. There were no ulcers. There are multiple polyps scattered throughout the stomach. A abrasives sales representative 1 was biopsied. There is mild gastritis and a punctate fashion located at the antrum and the dependent portions of the body of the stomach. The cardia and fundus were noted to be normal. There is no hiatal hernia noted. The scope was retracted back into the esophagus and biopsies were done of the GE junction to rule out Perez's. The Z line was regular. The GE junction was at 35cm; biopsies were taken. The distal esophagus was biopsied at at 30 cm. The mid esophagus was biopsied at 28 cm. Scope was removed and the patient was woken up and taken back to [facility] in stable condition. Follow up: 2 weeks time.
--- NOTE | 2021-07-27 20:55 | W.PM.DSUDISC ---
Discharge Plan Disposition Patient Disposition: HOME Condition: Good Discharge Details Reason For Visit: stomach scope Attending Provider: Maddie Cochran Primary Care Provider: Saba Christopher Home Meds and New Rx's Prescriptions: New omeprazole 20 mg capsule,delayed release(DR/EC) 20 mg PO BID Qty: 60 12RF Continued albuterol sulfate 90 mcg/actuation HFA aerosol inhaler 2 puff IH Q6H PRN (Reason: bronchospasm) Qty: 18 11RF budesonide-formoterol [Symbicort] 80-4.5 mcg/actuation HFA aerosol inhaler 2 puff IH BID Qty: 30.6 3RF hydrochlorothiazide 12.5 mg capsule 12.5 mg PO QAM Qty: 90 4RF prochlorperazine maleate [Compazine] 10 mg tablet 10 mg PO TID PRN (Reason: nausea and vomiting) Qty: 30 0RF (DME) Aerochamber MV Spacer See Rx Instructions .ROUTE .MEDSUPPLY Qty: 1 0RF Rx Instructions: As directed epinephrine [EpiPen] 0.3 mg/0.3 mL auto-injector 0.3 mg IM ONCE Qty: 1 0RF nystatin 100,000 unit/gram powder 1 applic TP BID PRN (Reason: yeast) Qty: 60 5RF Myrbetriq 50 mg tablet extended release 24 hr 50 mg PO DAILY Qty: 90 6RF acyclovir 800 mg tablet 800 mg PO .COMPLEX PRN (Reason: cold sores) Qty: 35 2RF Rx Instructions: 800 mg PO 5 times per day; while awake; give 5 doses in 24 hours PRN; pregabalin 50 mg capsule 50 mg PO BID Qty: 180 4RF brimonidine 0.025 % drops 1 drp ophthalmic (eye) Q8H Qty: 22.5 3RF ergocalciferol (vitamin D2) 1,250 mcg (50,000 unit) capsule 50,000 unit PO QWEEK Qty: 13 4RF citalopram 20 mg tablet 20 mg PO DAILY Qty: 90 4RF diclofenac sodium 1 % gel 4 g TP QID Qty: 100 3RF Rx Instructions: apply to single knee, ankle, foot; for foot includes sole/toes/top of foot triamcinolone acetonide [Triderm] 0.5 % cream 1 applic TP BID PRN (Reason: rash on abdomen) Qty: 80 2RF Rx Instructions: 80gram tube ibuprofen 600 mg tablet 600 mg PO Q6H PRN (Reason: pain) Qty: 60 3RF Rx Instructions: take w/ food. Do not take on the day you take methotrexate ergocalciferol (vitamin D2) [Vitamin D2] 1,250 mcg (50,000 unit) Capsule 1,250 mcg PO QWEEK 0RF Discontinued famotidine [Pepcid] 40 mg tablet 40 mg PO DAILY Qty: 90 4RF Discharge Instructions Additional Instructions: Post EGD Instruction ? ?You had anesthesia for your EGD/stomach scope today.? For your safety, please do the following for the next twenty-four (24) hours: Do Not operate a motor vehicle (car, truck, motorcycle, etc.) Do Not drink alcoholic beverages or use any recreational drugs for the first 24 hours or while taking pain medications. The medications in your body may have a reaction that can be dangerous. Do Not make any important decisions or sign any important papers ? You have just had a gastroscopy (EGD) or upper GI tract examination. It is important for your smooth recovery that you carefully follow the recommendations below. Do not hesitate to call if any questions should arise about your anesthesia, condition, or care. -Symptoms you may experience during the next 24 hours: ?1. Mild abdominal pain or excessive gas or a bloated feeling which improves with rest, liquids, eating? slightly, and walking as tolerated. 2. Drowsiness and/or forgetfulness because of the medications you were given. ?3. Throat numbness for about 1 hour. 4. A sore throat which you can treat with throat lozenges or by gargling with salt water 4-5 times a day. 5. Redness at the site of your IV which you can treat with warm compresses. ? SPECIAL INSTRUCTIONS: 1. You may resume your previous diet in one hour. We recommend a light meal to start, then progress as tolerated. 2. Restart regular medications in one hour. 3. No aspirin or non-steroidal containing medication for three days. 4. No lifting over 20 pounds or strenuous activity for the first 24 hours after your procedure. After 24 hours there are no restrictions on your activity, but you may feel fatigued for a few days. ? Findings:gastritis ?Treatment: stop pepcid and resolved ompreazole. we are going to start at BID and than will work back down to daily -Continue to follow lifestyle modifications: No alcohol, tobacco products, Aspirin or NSAID's (ibuprofen, Motrin, Naprosyn, aleve, etc).? Try to limit/avoid:? soda pop/any carbonated beverages, caffeine (including tea & chocolate), and acidic foods, (tomatoes, citrus, onions, peppermints) spicy or fried/fatty foods. Do not lie down for 30 minutes after eating, and do not eat 2 hours prior to bedtime. Avoid wearing tight fitting clothing/ belts. Follow up: 2 weeks ?Call the office at [phone] (Office) or [phone] (Hospital), or go to the ER right away if you notice any of the followin. Vomiting blood and /or ?coffee ground? material. ?2. Worsening of abdominal pain or cramping. ?3. Trouble with breathing, cough, and/or fever (temperature above 101.5 F). 4. Increasing pain with swallowing. ?5. Chest pain. 6. Any new symptoms. 7. Worsening of the redness at the IV site ? Activity:: see above Diet:: see above Discharge Orders Discharge Orders: Discharge Order (Routine); Ordered 07/28/21 Ordered By: Maddie Cochran
[2021-07-28 09:57] VITALS: BP 128/75; PULSE 80; RESP 16; TEMP 36.4; O2SAT 94
[2021-07-28] MEDS: Lactated Ringers 1,000 ML 80 ML IV (10:23)
--- NOTE | 2021-07-28 10:45 | ANES.PREOP_ITS ---
General Info Date of Service Date Performed: 07/28/21 Height: 5 ft 4 in Weight: 98.2 kg Body Mass Index (BMI): 37.1 Surgical Procedure: Operation Date: 07/28/21 11:05 Proposed Procedure Side Surgeon p Gastroscopy w/Biopsy Maddie Cochran, Meds Allergies and Home Medications Allergies Allergy/AdvReac Type Severity Reaction Status Date / Time insect venom Allergy Severe Anaphylaxsi Verified 07/27/21 12:09 s buspirone HCl [From BuSpar] AdvReac HEADACHES Verified 07/27/21 12:09 oxycodone AdvReac SYNCOPE Verified 07/27/21 12:09 Home Medication Medication Instructions Recorded inhalational spacing device #1 each 07/06/19 (Aerochamber MV) epinephrine 0.3 mg/0.3 mL 0.3 mg (0.3 mL) IM ONCE #1 each 10/13/19 injection, auto-injector (EpiPen) nystatin 100,000 unit/gram topical 1 applic TP BID PRN #60 gm 12/29/19 powder mirabegron 50 mg tablet,extended 50 mg PO DAILY #90 tab 10/04/20 release 24 hr (Myrbetriq) acyclovir 800 mg tablet 800 mg PO .COMPLEX PRN #35 tab 11/18/20 hydrochlorothiazide 12.5 mg capsule 12.5 mg PO QAM #90 cap 12/29/20 pregabalin 50 mg capsule 50 mg PO BID #180 cap 01/31/21 brimonidine 0.025 % eye drops 1 drp OPHTHALMIC (EYE) Q8H #22.5 ml 02/23/21 famotidine 40 mg tablet (Pepcid) 40 mg PO DAILY #90 tab 03/20/21 albuterol sulfate 90 mcg/actuation 2 puff IH Q6H PRN #18 gm 04/17/21 aerosol inhaler budesonide-formoterol HFA 80 2 puff IH BID #30.6 g 04/17/21 mcg-4.5 mcg/actuation aerosol inhaler (Symbicort) citalopram 20 mg tablet 20 mg PO DAILY #90 tab 06/08/21 ergocalciferol (vitamin D2) 1,250 50,000 unit PO QWEEK #13 cap 06/08/21 mcg (50,000 unit) capsule prochlorperazine maleate 10 mg 10 mg PO TID PRN #30 tab 07/07/21 tablet (Compazine) diclofenac sodium 1 % topical gel 4 g TP QID #100 gm 07/13/21 triamcinolone acetonide 0.5 % 1 applic TP BID PRN #80 g 07/13/21 topical cream (Triderm) ibuprofen 600 mg tablet 600 mg PO Q6H PRN #60 tab 07/19/21 ergocalciferol (vitamin D2) 1,250 1,250 mcg PO QWEEK 07/28/21 mcg (50,000 unit) capsule (Vitamin D2) Current Visit Medications: Current Medications Generic Name Dose Route Start Last Admin Trade Name Freq PRN Reason Stop Dose Admin Ringer's Solution 1,000 mls @ 80 mls/hr 07/28/21 06:00 07/28/21 10:23 IV 08/17/21 23:59 80 mls/hr INFUSION BONNIE Administration IV Miscellaneous Supplies 1 each 07/28/21 06:00 Iv Access IV 08/17/21 23:59 DIRECTED BONNIE Sodium Chloride 0 ml 07/28/21 06:00 Normal Saline Flush 10 Ml Syr IV 08/17/21 23:59 PRN PRN Sodium Chloride 0 ml 07/28/21 06:00 Normal Saline 10 Ml Vial IJ 08/17/21 23:59 DIRECTED PRN Sterile Water 0 ml 07/28/21 06:00 Water,Injection,Sterile 10 Ml Vial IJ 08/17/21 23:59 DIRECTED PRN PFSH Active Problems Active Problems: Problem Status Onset Code Acute exacerbation of chronic low back pain 09/09/17 M54.5, G89.29 Anemia D64.9 Gastroesophageal reflux disease with esophagitis 07/05/07 K21.0 Hiatal hernia K44.9 Hyperlipidemia 04/18/05 E78.5 Insomnia 12/05/16 G47.00 Neuropathy 01/07/17 G62.9 Pain of left heel 01/07/17 M79.672 Pain of right heel 01/07/17 M79.671 Urge incontinence of urine 12/23/17 N39.41 Vaginal atrophy 11/04/17 N95.2 Depressive disorder F32.9 Pain in thumb joint with movement 08/13/12 M25.549 Thoracic back pain 03/11/14 M54.6 Herpes simplex B00.9 Anxiety F41.9 High risk HPV infection B97.7 Overactive bladder N32.81 Degeneration of intervertebral disc of lumbar region M51.36 Arthralgia M25.50 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 states no longer current Cholecystitis with cholelithiasis Diarrhea Gall stones Lateral epicondylitis (09/01/13) Non-intractable vomiting with nausea (09/26/15) Pain of hand (01/07/17) PONV (postoperative nausea and vomiting) Sciatica left; L5-S1 herniation; MRI 2001; repeat 03/22-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 S/P disc surgery 2003 Yeast infection (12/23/17) Surgical History Surgical History (Updated 07/28/21 @ 10:07 by Genny Torrez RN) EGD - MAC (~05/2007) History of back surgery herniated disc, L5,S2 History of bilateral ligation of fallopian tubes History of colonoscopy (~06/03/20) History of esophagogastroduodenoscopy History of spinal surgery Ligation of fallopian tube S/P laparoscopic cholecystectomy Tobacco Smoking/Tobacco Use Status: Never Passive smoking exposure: Yes Alcohol Alcohol Intake: current Alcohol intake frequency: holidays/special occasions only Alcohol type: wine Substance Use Substance use: Never Substance use type: does not use Prental History History 5 Para Hx # Term Pregnancies 3 Multiple births Hx # Pregnancies Ectopic pregnancies AB induced Hx Number of Living Children AB spontaneous Vital Signs and Lab Results Vital Signs Most Recent Vital Signs in EMR: Most Recent Vital Signs Temp Pulse Resp BP Pulse Ox 36.4 C L 80 16 128/75 94 03/11/22 09:57 07/28/21 09:57 07/28/21 09:57 07/28/21 09:57 07/28/21 09:57 Lab Results Blood Type / Crossmatch: No Data to Display Complete Blood Count: No Data to Display Complete Metabolic Panel: No Data to Display Liver Function Panel: No Data to Display Coagulation Panel: No Data to Display Cardiac Panel: No Data to Display Arterial Blood Gas: No Data to Display Venous Blood Gas: No Data to Display Pancreas Panel: No Data to Display Thyroid Panel: No Data to Display Infectious Disease: Coronavirus (COVID-19)(PCR) Negative (Negative) 07/26/21 09:04 07/26/21 Coronavirus 2019 Source Nasal/Nares 07/26/21 09:04 07/26/21 Blood Cultures: No Data to Display Toxicology Panel: No Data to Display Panel: No Data to Display Imaging and Studies Imaging and Studies Study information below may be from another EMR and interpreted by another provider. Please see original notes in EMR for more complete details. Stress Test Summary: DATE OF SERVICE: 08/10/19 Exam: Exercise Treadmill Indications: Patient reports intermittent chest heaviness and right chest ???tingling??? for the last ???couple of months???. Of note patient???s significant other approximately 6 months ago. Stress ECG Conclusion 1. Patient exercised for 9 minutes (10 METS). Rate-pressure product was 22,000. 2. Patient had no symptoms suggestive of ischemia. 3. There was no evidence of ischemia on the ECG portion of the exam at this level of stress. 4. The Ansari Score (8) estimates an annual cardiovascular mortality of 0% and a five year survival of 95%. Using the Ansari Score there is a low probability of any angiographic coronary disease. Echocardiogram Summary: Date of Exam: 07/12/19ex: F Admission Date: 07/12/19 : 1970 Age: 48 Exam(s) a US:US echocardiogram APPROVED REPORT EXAM: Comprehensive 2D, Doppler, and color-flow Echocardiogram Patient Location: Out-Patient Physical Science Technician: Evie Zamuda, RDCS (AE) Indications: Fatigue, Chest pain Conclusion Left Ventricle : The left ventricle is normal size. The left ventricular systolic function is normal. The left ventricular ejection fraction is within the normal range. There is normal left ventricular wall thickness. There is normal LV segmental wall motion. The left ventricular diastolic function is normal. LVEF is 65-70%. Right Ventricle : The right ventricle is normal size. The right ventricular systolic function is normal. Atria : The left atrium size is normal. The right atrium size is normal. Aortic Valve : Aortic valve is trileaflet. No aortic regurgitation is present. Mitral Valve : The mitral valve is normal in structure. Trace mitral regurgitation. No evidence of mitral valve stenosis. Great Vessels : The IVC was not visualized. There is no prior echocardiogram available for comparison. Pulmonary Function Summary: PULMONARY FUNCTION TEST REPORT DATE OF SERVICE: July 01, 2019 REQUESTING PROVIDER: Saba Christopher M.D. Spirometry shows no evidence of obstructive airways disease, no bronchodilator response. Lung volumes show no evidence of restriction. Diffusion capacity normal. Airways resistance normal. IMPRESSION: Normal pulmonary function study. Clinical correlation recommended. Anesthesia Assessment and Plan Anesthesia History Personal History: PONV Family History: No Family History of Anesthesia Complications Exercise Tolerance Exercise Tolerance: Metabolic Equivalents>4 Pertinent Negatives Pertinent Negatives: No Symptoms of GERD Cardiac & Pulmonary Exam Cardiac Exam: Normal S1/S2 Heart Sounds Pulmonary Exam: Clear Bilateral Breath Sounds Implantable Cardiac Device Does patient have a Pacemaker or an ICD?: No Airway Exam Known Difficult Airway: No Mallampati Class: 2 Mouth Opening: Normal (> 3cm) Thyromental Distance: Greater than 3 cm Neck Range of Motion: Full ROM Neck Circumference: Normal Teeth Condition: Normal Dentition ASA Classification ASA Score: ASA 3 Emergency Case?: No NPO Status NPO Status: NPO Clears >2 hours, Solids >8 hours Status Status: Negative HCG Anesthesia Plan Resuscitation Status: Full Code Anesthesia Technique: General Anesthesia Airway Planned: Natural Airway Monitors Used: Standard Monitors
[2021-07-28 10:48] VITALS: BMI 37.1
--- NOTE | 2021-07-28 11:07 | STOM_PTH ---
PATIENT: Nelda Robison LOC: [facility] U#:[id number] AGE/SX: 50/F ROOM: RE07/28/[address]: Maddie Cochran : 1970 BED: DIS: 07/28/2021 SPEC #: [id number] RECD: 07/28/21 12:53 STATUS: BARBARA [facility] #: [id number] AMADEO: 07/28/21 11:[address]: Maddie Cochran DEPT: Surgical Specimen RECD BY: Ale Esparza ENTERED: 07/28/21 12:57 SP TYPE: STOMACH OTHR DR: Saba Christopher MD, DC Tissues: 1 - BIOPSY BOWEL 2 - BIOPSY BOWEL 3 - STOMACH BIOPSY 4 - STOMACH BIOPSY 5 - BIOPSY BOWEL 6 - ESOPHAGUS BIOPSY 7 - ESOPHAGUS BIOPSY 8 - ESOPHAGUS BIOPSY Procedures: GROSS AND MICRO LEVEL 4 Comments: [id number]
[2021-07-28 11:25] VITALS: BP 114/73; PULSE 70; RESP 16; TEMP 36.5; O2SAT 95
--- NOTE | 2021-07-28 11:41 | W.ANESPOSTOP ---
Postoperative Evaluation Date, Time and Location Date Performed: 07/28/21 Time Performed: 11:41 Patient Location: Day Surgery Unit Vital Signs Most Recent Imported Vital Signs: Most Recent Vital Signs Temp Pulse Resp BP Pulse Ox 36.5 C 70 16 114/73 95 07/28/21 11:25 07/28/21 11:25 07/28/21 11:25 07/28/21 11:25 07/28/21 11:25 Pain Score Most Recent Pain Score: Most Recent Pain Score Pain Level 0 07/28/21 11:25 Assessment Mental Status: Awake (Alert & Oriented to Patient Baseline) Airway and Respiratory Function: Patent airway with normal (patient baseline) respiratory exam Cardiovascular Function: Hemodynamically Stable Hydration Status: Adequately Hydrated Nausea & Vomiting: No Nausea or Vomiting Pain: Pt. Denies Any Pain Peripheral Nerve Block: Patient did not receive a nerve block
[2021-07-28 11:59] VITALS: BP 134/79; PULSE 70; RESP 16; TEMP 36.5; O2SAT 94
== END 2021-07-28 12:42 | disposition home or self-care (01) ==
LOC: SUR 09:45
PROVIDERS: PCP Family Medicine; Visit Provider Surgery
PROC: 0DJ68ZZ Inspection of Stomach, Via Natural or Artificial Opening Endoscopic (ICD-10-PCS; CPT 43235; principal; 2021-07-28 11:00)
DX: R11.0 Nausea (principal); K31.7 Polyp of stomach and duodenum; K29.70 Gastritis, unspecified, without bleeding; E11.9 Type 2 diabetes mellitus without complications; E66.9 Obesity, unspecified; D64.9 Anemia, unspecified; K63.89 Other specified diseases of intestine; K22.89 Other specified disease of esophagus
CPT/HCPCS: 43239; 88305; J2405

== ENCOUNTER 2021-08-23 00:57 | Outpatient (CLI) | payer OTHER, MEDICAID, SELFPAY ==
--- NOTE | 2021-08-23 07:52 | DI.RAD_ITS ---
Exam(s) XR SHOULDER RT COMPLETE 2+V EXAM: XR SHOULDER RT COMPLETE 2+V CLINICAL HISTORY: r shoulder pain,m25.511. TECHNIQUE: 2D digital imaging was performed. COMPARISON: CR XR SHOULDER RT COMPLETE 2+V from 04/19/2020 FINDINGS: Five views No evidence of acute fracture or dislocation nor joint space narrowings. Subacromial space height is not diminished. However, there is a small 3 x 1 millimeter calcific density immediately above the g reater tuberosity, most probably consistent with element of calcific rotator cuff tendinitis. Bone density is normal. No osseous lesions IMPRESSION: DATA REPOSITORY: RADIATION DOSE DELIVERED:
== END 2021-08-23 01:17 ==
PROVIDERS: PCP Family Medicine; Visit Provider Family Medicine
DX: M25.511 Pain in right shoulder (principal); M75.31 Calcific tendinitis of right shoulder
CPT/HCPCS: 73030

== ENCOUNTER 2021-09-25 07:53 | Outpatient (CLI) | payer OTHER, MEDICAID, SELFPAY ==
[2021-09-25 14:50] LABS: Abs Immature Grans 0.01 10^3/uL (0.0-0.06); Absolute Basophil Count 0.04 10^3/uL (0.0-0.2); Absolute Eosinophil Count 0.21 10^3/uL (0.0-0.7); Absolute Lymphocyte Count 2.25 10^3/uL (1.2-3.4); Absolute Monocyte Count 0.55 10^3/uL (0.1-0.8); Absolute Neutrophil Count 2.97 10^3/uL (1.2-6.7); Basophils % 0.7; Eosinophils % 3.5; HGB 12.6 g/dL (11.2-15.7); Immature Grans % 0.2; Lymphocytes % 37.3; MCH 27.6 pg (27.0-33.0); MCHC 32.3 % (32.0-36.0); MCV 86 fL (80-95); MPV 8.7 fL (8.0-11.0); Monocytes % 9.1; Neutrophils % 49.2; Platelet Count 344 10^3/uL (130-400); RBC 4.56 10^6/uL (3.93-5.22); RDW-SD 43.5 fL; WBC 6.03 10^3/uL (4.4-10.8)
[2021-09-25 15:56] LABS: ALT 38 U/L (14-59); AST 17 U/L (15-37); Albumin 3.7 g/dL (3.4-5.0); Alkaline Phosphatase 69 U/L (46-116); Anion Gap 7.6 mmol/L (3-11); BUN 15 mg/dL (7-18); Bilirubin, Total 0.3 mg/dL (0.2-1.0); CO2 28.4 mmol/L (21.0-32.0); CREATININE 1.2 mg/dL (0.55-1.02); Calcium 8.9 mg/dL (8.5-10.1); Chloride 102 mmol/L (98-107); Estimated GFR 46.99 (mL/min/1.73m2); Glucose 91 mg/dL (74-106); Potassium 3.8 mmol/L (3.5-5.1); Sodium 138 mmol/L (136-145); Total Protein 7.4 g/dL (6.4-8.2)
== END 2021-09-25 07:54 | disposition home or self-care (01) ==
LOC: LBO 08:00
PROVIDERS: PCP Family Medicine; Visit Provider Internal Medicine Rheumatology
DX: M19.90 Unspecified osteoarthritis, unspecified site (principal); Z79.899 Other long term (current) drug therapy
CPT/HCPCS: 80053; 85025

== ENCOUNTER 2021-10-18 16:10 | Outpatient (REF) | payer OTHER, MEDICAID, SELFPAY ==
--- NOTE | 2021-10-18 14:30 | PAPFT_PTH ---
PATIENT: Nelda Robison LOC: N U#:[id number] AGE/SX: 51/F ROOM: RE10/18/[address]: Sophia Alvarez NP : 1970 BED: DIS: 10/18/2021 SPEC #: [id number] RECD: 10/18/21 18:15 STATUS: AILEENJaye REYES #: [id number] AMADEO: 10/18/21 14:[address]: Sophia Alvarez NP DEPT: [facility] Cytology RECD BY: Ale Esparza ENTERED: 10/18/21 18:15 SP TYPE: PAPFT OTHR DR: Saba Christopher MD, DC Tissues: 1 - CX/ENDOCX FOR PAP SMEARS Procedures: PAP THIN PREP/UVM Screening HPV DNA PROBE Comments: [id number]
== END 2021-10-18 16:11 | disposition home or self-care (01) ==
LOC: LBN 16:10
PROVIDERS: PCP Family Medicine; Visit Provider Nurse Practitioner Women's Health
DX: Z12.4 Encounter for screening for malignant neoplasm of cervix (principal); Z11.51 Encounter for screening for human papillomavirus (HPV); R87.610 Atypical squamous cells of undetermined significance on cytologic smear of cervix (ASC-US)
CPT/HCPCS: 88142; 87624

== ENCOUNTER 2021-11-02 15:21 | Outpatient (REF) | payer OTHER, MEDICAID, SELFPAY ==
--- NOTE | 2021-11-02 14:00 | CER_PTH ---
PATIENT: Nelda Robison LOC: [facility] U#:[id number] AGE/SX: 51/F ROOM: RE11/02/[address]: Kailey Vega : 1970 BED: DIS: 11/02/2021 SPEC #: [id number] RECD: 11/02/21 16:59 STATUS: BARBARA REYES #: [id number] AMADEO: 11/02/21 14:[address]: Kailey Vega DEPT: Surgical Specimen RECD BY: Ale Esparza ENTERED: 11/02/21 17:00 SP TYPE: CER CAMMY DR: Saba Christopher MD, DC Tissues: 1 - CERVICAL BIOPSY 2 - ENDOCERVICAL BX/CURRETTE Procedures: GROSS AND MICRO LEVEL 4 IMMUNOPEROXIDASE STAIN P16 IPEX Comments: [id number]
== END 2021-11-02 15:22 | disposition home or self-care (01) ==
LOC: LBN 15:21
PROVIDERS: PCP Family Medicine; Visit Provider Obstetrics & Gynecology Gynecology
DX: N72 Inflammatory disease of cervix uteri (principal); N87.9 Dysplasia of cervix uteri, unspecified
CPT/HCPCS: 88305; 88342; 88361

== ENCOUNTER → 2021-11-24 00:52 | Outpatient (CLI) | payer OTHER, MEDICAID, SELFPAY ==
--- NOTE | 2021-11-24 09:00 | DI.MAMMO_ITS ---
Exam(s) MAMMO SCREENING EXAM: MAMMO SCREENING CLINICAL HISTORY: screening,z12.39 TECHNIQUE: Mammograms were interpreted according to the usual protocol including computer analysis w [employer] CAD system, tomosynthesis and C-view imaging. COMPARISON: 2011 through 2020 FINDINGS: The breasts are composed of mainly fatty density , Breast Density category A. No suspicious masses or suspicious microcalcifications are seen. No skin thickening or abnormal axillary lymph nodes are seen. There has been no significant change from prior exams. IMPRESSION: BI-RADS Category 1, Negative mammogram Yearly screening mammography is recommended. Breast Density - Category A, fatty density. A negative radiographic report should not delay biopsy if a dominant or clinically suspicious mass is present. Up to ten percent of cancers are not identified on mammography. A negative report may reinforce clinical impression. Adenosis and dense breasts may obscure an underlying neoplasm. False positive reports average 6 to 10%. Patient will receive a letter notifying them of these results.
== END ==
PROVIDERS: PCP Family Medicine; Visit Provider Nurse Practitioner Women's Health
DX: Z12.31 Encounter for screening mammogram for malignant neoplasm of breast (principal)
CPT/HCPCS: 77063; 77067

== ENCOUNTER 2022-02-06 14:54 | Outpatient (CLI) | payer OTHER, MEDICAID, SELFPAY ==
[2022-02-06 15:16] LABS: HGB 10.9 g/dL (11.2-15.7); MCH 27.5 pg (27.0-33.0); MCV 83 fL (80-95); MPV 9.3 fL (8.0-11.0); Platelet Count 340 10^3/uL (130-400); RBC 3.97 10^6/uL (3.93-5.22); RDW 15.1 % (11.7-14.6); RDW-SD 45.5 fL; WBC 6.63 10^3/uL (4.4-10.8)
[2022-02-06 15:51] LABS: Iron 34 ug/dL (50-170)
[2022-02-06 16:06] LABS: Ferritin 8 ng/mL (8-252); TSH (W/Ref FT4) 0.99 uIU/mL (0.36-3.74)
== END 2022-02-06 14:55 | disposition home or self-care (01) ==
LOC: LBO 14:56
PROVIDERS: PCP Family Medicine; Visit Provider Nurse Practitioner
DX: D64.9 Anemia, unspecified (principal); L65.9 Nonscarring hair loss, unspecified
CPT/HCPCS: 36415; 85027; 82728; 83540; 84443

== ENCOUNTER 2022-02-28 02:15 | Outpatient (CLI) | payer OTHER, MEDICAID, SELFPAY ==
[2022-02-28 15:29] LABS: HCT 37.3 % (36.0-46.0); HGB 12.2 g/dL (11.2-15.7); MCH 28.3 pg (27.0-33.0); MCHC 32.7 % (32.0-36.0); MCV 87 fL (80-95); MPV 8.6 fL (8.0-11.0); Platelet Count 353 10^3/uL (130-400); RBC 4.31 10^6/uL (3.93-5.22); RDW 17.7 % (11.7-14.6); RDW-SD 56.6 fL; WBC 5.88 10^3/uL (4.4-10.8)
[2022-02-28 16:30] LABS: Iron 110 ug/dL (50-170)
[2022-02-28 16:43] LABS: Ferritin 26 ng/mL (8-252)
[2022-03-01 05:54] LABS: Vitamin D 25 Total 45.3 ng/mL (30-100)
== END 2022-02-28 02:16 | disposition home or self-care (01) ==
LOC: LBO 02:15
PROVIDERS: PCP Family Medicine; Visit Provider Family Medicine
DX: D64.9 Anemia, unspecified (principal); E55.9 Vitamin D deficiency, unspecified
CPT/HCPCS: 36415; 82306; 85027; 82728; 83540

== ENCOUNTER 2022-03-09 13:06 | Outpatient (CLI) | payer OTHER, MEDICAID, SELFPAY ==
[2022-03-09 12:59] LABS: Anion Gap 9.4 mmol/L (3-11); BUN 14 mg/dL (7-18); CO2 27.6 mmol/L (21.0-32.0); CREATININE 0.9 mg/dL (0.55-1.02); Calcium 9.4 mg/dL (8.5-10.1); Chloride 101 mmol/L (98-107); Estimated GFR 76.44 (mL/min/1.73m2); Glucose 147 mg/dL (74-106); Potassium 3.4 mmol/L (3.5-5.1); Sodium 138 mmol/L (136-145)
== END 2022-03-09 13:07 | disposition home or self-care (01) ==
LOC: LBO 13:07
PROVIDERS: PCP Family Medicine; Visit Provider Family Medicine
DX: R79.89 Other specified abnormal findings of blood chemistry (principal)
CPT/HCPCS: 36415; 80048

== ENCOUNTER 2022-05-30 16:45 | Outpatient (CLI) | payer OTHER, MEDICAID, SELFPAY ==
[2022-05-30 17:01] VITALS: BP 139/90; PULSE 89; RESP 20; TEMP 36.6; O2SAT 98
--- NOTE | 2022-05-30 17:40 | PDOC.PAIN_ITS ---
Date of service: 05/30/22 Time of Service: 17:46 Pain Clinic Procedure Note Procedure Note Procedure Note: ULTRASOUND GUIDED RIGHT trapezius, rhomboid, and thoracic paraspinous muscle trigger point INJECTIONS Pre-Procedural Evaluation: Nelda Stubbs has been referred to the Pain Management Center for an Ultrasound Guided RIGHT trapezius, rhomboid, and thoracic paraspinous muscle trigger point injection for a chief complaint of right scapular pain. Pre-procedure Pain Score: 7/10 Patient was interviewed and the medical record reviewed. There were no medical, pharmacologic, radiographic, or other structural contraindications to preforming an ultrasound guided injection. Risks and expected side effects as well as potential benefits of the procedure were reviewed. The patient consent form was signed and witnessed. Standard time-out procedure was performed. The use of direct ultrasound visualization of the needle (rather than a non- guided injection) was required to increase patient safety by excluding inadvertent intramuscular, intratendinous, or intraneural needle placement and minimizing bleeding by avoiding osteochondral or vascular injury from the needle. Additionally, the increased accuracy of placement may increase clinical effectiveness and will allow higher diagnostic specificity when evaluating effectiveness of this injection. Procedure Description: The patient was placed in the prone position and automated blood pressure cuff and pulse oximeter applied for monitoring during the procedure and recorded in the medical record. Pre-injection ultrasound scanning of the area of interest was performed using linear transducer, identifying relevant anatomy, landmarks, and neurovascular structures allowing for optimal needle path. The site was then prepared in the usual sterile fashion, using thorough Chlorhexadine preparation of the skin and sterile draping. The same ultrasound transducer was then passed into the sterile field using sterile probe cover and sterile ultrasound gel. The injection target was again visualized. Skin and subcutaneous tissues were anesthetized with 4 mL of 1% Lidocaine. A 21G Pajunk 3.5 Ultrasound needle was placed under live ultrasound guidance, using an in-plane approach, to the target area. After visualization of the needle tip at the target area, a 2 cc of Lidocaine (2%) was delivered after negative aspiration for blood at 4 sites. This was followed by 1/4 cc of Depomedrol (40 mg/cc) at each site. The needle was flushed with another 1/2 cc of 1% Lidocaine prior to being removed without difficulty. Ultrasound images were captured and stored for documentation purposes. Post-procedure Pain Score:5/10 Vital signs were stable throughout the procedure and were as recorded in the docflowsheet by the nursing staff. Follow up plans and appointments were discussed with the patient.Post procedure instruction was given as documented in nursing documentation and having met discharge criteria, they were discharged from the Pain Management [facility]. COMMENTS: She can have this procedure up to 3 times per 12 months if it is found to be helpful. She will start home exercises in 48 hours. Alfred Luis DO, MPH ABPMR-Pain Management [facility]
[2022-05-30] MEDS: Lidocaine 2% Pres-Free 5 ML VIAL IJ (17:53)
[2022-05-30] MEDS: methylPREDNISolone ACETATE 40 MG/ML VIAL IJ (17:54)
[2022-05-30 17:55] VITALS: PULSE 79; O2SAT 97
== END 2022-05-30 16:46 | disposition home or self-care (01) ==
LOC: PC 16:45
PROVIDERS: PCP Family Medicine; Visit Provider Preventive Medicine Occupational Medicine
DX: M25.511 Pain in right shoulder (principal)
CPT/HCPCS: 20611; J1030

== ENCOUNTER 2022-10-23 15:53 | Outpatient (REF) | payer OTHER, MEDICAID, SELFPAY ==
--- NOTE | 2022-10-23 15:40 | PAPFT_PTH ---
PATIENT: Nelda Robison LOC: [facility] U#:[id number] AGE/SX: 52/F ROOM: RE10/23/[address]: Sophia Alvarez NP : 1970 BED: DIS: 10/23/2022 SPEC #: [id number] RECD: 10/23/22 18:16 STATUS: AILEENJaye REElen #: [id number] AMADEO: 10/23/22 15:[address]: Kim PEARSON,Sophia DEPT: [facility] Cytology RECD BY: Ale Esparza ENTERED: 10/23/22 18:16 SP TYPE: PAPFT OTHR DR: Saba Christopher MD, DC Tissues: 1 - CX/ENDOCX FOR PAP SMEARS Procedures: PAP THIN PREP/UVM Screening HPV DNA PROBE Comments: [id number] (HPV 16 & 18/45)
== END 2022-10-23 15:54 | disposition home or self-care (01) ==
LOC: LBN 15:53
PROVIDERS: PCP Family Medicine; Visit Provider Nurse Practitioner Women's Health
DX: Z12.4 Encounter for screening for malignant neoplasm of cervix (principal); Z11.51 Encounter for screening for human papillomavirus (HPV); R87.810 Cervical high risk human papillomavirus (HPV) DNA test positive
CPT/HCPCS: 88142; 87624

== ENCOUNTER 2022-11-19 15:59 | Outpatient (CLI) | payer OTHER, MEDICAID, SELFPAY ==
--- NOTE | 2022-11-19 15:50 | DI.RAD_ITS ---
Exam(s) XR HIP RT COMPLETE AP PELVIS EXAM: XR HIP RT COMPLETE AP PELVIS INDICATION: r hip pain M25.551 PAIN RT HIP. COMPARISON: CR LUMBAR SPINE COMPLETE from 09/09/2017 TECHNIQUE: 2D digital imaging was performed. Two views. FINDINGS: The joint spaces are well maintained. There is mild bilateral acetabular spurring. No femoral head spurring. No soft tissue calcifications. IMPRESSION: Minimal degenerative changes. DATA REPOSITORY: RADIATION DOSE DELIVERED:
== END 2022-11-19 16:19 ==
LOC: DI 16:00
PROVIDERS: PCP Family Medicine; Visit Provider Family Medicine
DX: M16.11 Unilateral primary osteoarthritis, right hip (principal)
CPT/HCPCS: 73502

== ENCOUNTER 2022-11-21 13:42 | Outpatient (CLI) | payer OTHER, MEDICAID, SELFPAY ==
[2022-11-21 13:49] VITALS: BP 146/80; PULSE 80; RESP 20; TEMP 36.7; O2SAT 100
[2022-11-21 14:22] VITALS: PULSE 81; O2SAT 100
[2022-11-21] MEDS: Bupivacaine 0.5% Pres-Free 10 ML VIAL IJ (14:29)
--- NOTE | 2022-11-21 14:29 | PDOC.PAIN_ITS ---
Date of service: 11/21/22 Time of Service: 14:32 Pain Managment Procedure Note Procedure Note Procedure Note: PROCEDURE NOTE ULTRASOUND-GUIDED LEFT HIP TROCHANTERIC BURSA INJECTION Date of Service: November 21, 2022 Patient: Nelda Stubbs Provider: Alfred Luis DO, MPH Pre-operative diagnosis: Left trochanteric bursitis pain Post-operative diagnosis: Same Pre-procedure pain: VAS= 8/10 COMMENTS: I previously evaluated her in the clinic Nelda Antwan Stubbs has been referred to the Pain Management Center for an ultrasound-guided left trochanteric bursa injection. Nelda was interviewed and the medical record reviewed. There were no medical, pharmacologic, radiographic or other structural contraindications to attempting a ultrasound-guided trochanteric bursa injection. Risks and potential side effects as well as potential benefit of the procedure were reviewed with @M@ @LNAME@, and @HIS@ voiced concerns were addressed. After verbal informed consent was obtained, the printed consent form was signed. Standard time-out procedure was performed. Nelda was placed in the lateral recumbant position on the procedure table with the affected side up. Next, automated blood pressure cuff and pulse oximeter applied. The skin entry point for approaching the left trochanteric bursa was identified under the most advantageous ultrasound view and marked. Following thorough Chlorhexadine preparation of the skin and draping and 1% lidocaine infiltration of the skin entry point and subcutaneous tissues, a 25 gauge spinal needle was placed under ultrasound guidance using an in-plane view into the trochanteric bursa. 2 ml 1% Lidocaine and 40mg Depo medrol was injected into the bursa with an initial reproduction of a significant component of the usual pain and hydrodisection in the trochanteric bursa. Next, I injected 5 cc of 0.5% Bupivacaine. The needle was then removed without difficulty. Nelda's vital signs were stable throughout the procedure and were as recorded in the docflowsheet by the nursing staff. If given, dosages of intravenous drugs for anxiolysis and analgesia were documented in MAR. Follow up plans and appointments were discussed with the Nelda. Post procedure instruction was given as documented in nursing documentation and having met discharge criteria, Nelda was discharged from the Pain Management Center. COMMENTS: No apparent complications. Post-procedure pain;VAS= 0/10 F/U with our office as needed. I personally performed this entire procedure. Alfred Luis DO, MPH ABPMR-subspecialty board certification in Pain Medicine [facility] for Pain Management
[2022-11-21] MEDS: methylPREDNISolone ACETATE 40 MG/ML VIAL IJ (14:30)
== END 2022-11-21 13:43 | disposition home or self-care (01) ==
LOC: PC 13:42
PROVIDERS: PCP Family Medicine; Visit Provider Preventive Medicine Occupational Medicine
DX: M70.62 Trochanteric bursitis, left hip (principal)
CPT/HCPCS: 20611; J1030

== ENCOUNTER 2022-11-21 14:57 | Outpatient (CLI) | payer OTHER, MEDICAID, SELFPAY ==
--- NOTE | 2022-11-21 14:44 | DI.RAD_ITS ---
Exam(s) XR HIP LT COMPLETE AP PELVIS EXAM: XR HIP LT COMPLETE AP PELVIS CLINICAL HISTORY: left hip pain, chronic, M25.552, G89.29. TECHNIQUE: 2D digital imaging was performed. Two views. COMPARISON: CR XR HIP RT COMPLETE AP PELVIS from 11/19/2022 FINDINGS: BONES: No acute fracture is present. No bony destructive lesion is seen. JOINTS: No dislocation present. Joint spaces are maintained. SI joints are unremarkable. SOFT TISSUE: Normal. IMPRESSION: Unremarkable radiographs of the left hip. Unremarkable radiographs of the pelvis DATA REPOSITORY: RADIATION DOSE DELIVERED:
== END 2022-11-21 15:17 ==
LOC: DI 14:58
PROVIDERS: PCP Family Medicine; Visit Provider Family Medicine
DX: M25.552 Pain in left hip; G89.29 Other chronic pain
CPT/HCPCS: 73502

== ENCOUNTER 2022-11-21 14:58 | Outpatient (CLI) | payer OTHER, MEDICAID, SELFPAY ==
[2022-11-21 16:27] LABS: Vitamin D 25 Total 52.3 ng/mL (30-100)
== END 2022-11-21 14:59 | disposition home or self-care (01) ==
LOC: LBO 14:58
PROVIDERS: PCP Family Medicine; Visit Provider Family Medicine
DX: E55.9 Vitamin D deficiency, unspecified (principal)
CPT/HCPCS: 36415; 82306

== ENCOUNTER 2022-12-05 01:29 | Outpatient (CLI) | payer OTHER, MEDICAID, SELFPAY ==
--- NOTE | 2022-12-10 10:45 | DI.MAMMO_ITS ---
Exam(s) MAMMO SCREENING EXAM: MAMMO SCREENING CLINICAL HISTORY: screening,z12.39 TECHNIQUE: Bilateral full field digital CC and MLO mammographic images were obtained with 3D tomosyn thesis and utilizing computer aided detection (CAD). COMPARISON: Available for comparison. FINDINGS: Masses/Architectural Distortion: No suspicious nodules are seen. There is a stable asymmetric densit y that outer right breast. No areas of architectural distortion. Microcalcifications: No suspicious pleomorphic-type are seen. Skin Thickening/Nipple Retraction: None. IMPRESSION: 1. No significant interval change with no specific features of malignancy noted. 2. Unless there is more urgent need, screening mammography is recommended, as per [employer] guidelines. BI-RADS Category 1 - Negative Breast Density - Category B - Scattered areas of fibroglandular density Breast density category C or D implies that the patient has dense breast tissue. Dense breast tissue is very common and is not abnormal but dense breast tissue can make it harder to find cancer on a ma mmogram. Also, dense breast tissue may increase their breast cancer risk. This information about the result of the mammogram report was provided to the patient to raise their awareness. Use this report when you speak with the patient about their risks for breast cancer, which includes their family hist ory. At that time, you may recommend for more screening tests (Ultrasound or MRI) as they might be us eful based on their risk. A negative radiographic report should not delay biopsy if a dominant or clinically suspicious mass is present. Up to ten percent of cancers are not identified on mammography. A negative report may reinforce clinical impression. Adenosis and dense breasts may obscure an underlying neoplasm. False positive reports average 6 to 10%. Patient will receive a letter notifying them of these results.
== END 2022-12-05 01:49 ==
PROVIDERS: PCP Family Medicine; Visit Provider Nurse Practitioner Women's Health
DX: Z12.31 Encounter for screening mammogram for malignant neoplasm of breast (principal)
CPT/HCPCS: 77063; 77067

== ENCOUNTER 2022-12-24 15:26 | Outpatient (REF) | payer OTHER, MEDICAID, SELFPAY ==
--- NOTE | 2022-12-24 14:30 | CER_PTH ---
PATIENT: Nelda Robison LOC: [facility] U#:[id number] AGE/SX: 52/F ROOM: RE12/24/[address]: Felicitas Russo MD : 1970 BED: DIS: 12/24/2022 SPEC #: [id number] RECD: 12/24/22 18:14 STATUS: BARBARA REYES #: [id number] AMADEO: 12/24/22 14:[address]: Felicitas Russo DEPT: Surgical Specimen RECD BY: Ale Esparza ENTERED: 12/24/22 18:15 SP TYPE: CER OTHR DR: Saba Christopher MD, DC Tissues: 1 - CERVICAL BIOPSY 2 - CERVICAL BIOPSY Procedures: GROSS AND MICRO LEVEL 4 Comments: [id number]
== END 2022-12-24 15:27 | disposition home or self-care (01) ==
LOC: LBN 15:26
PROVIDERS: PCP Family Medicine; Visit Provider Obstetrics & Gynecology
DX: N84.1 Polyp of cervix uteri (principal); N87.9 Dysplasia of cervix uteri, unspecified; R87.810 Cervical high risk human papillomavirus (HPV) DNA test positive
CPT/HCPCS: 88305

== ENCOUNTER 2023-03-04 08:41 | Day surgery (SDC) | payer OTHER, MEDICAID, SELFPAY ==
[2023-03-04] VITALS (9 sets, daily range): BP systolic 120–150; BP diastolic 71–83; PULSE 70–80; RESP 12–18; TEMP 36.3–36.5; O2SAT 93–99; BMI 39.4
--- NOTE | 2023-03-04 09:45 | ANES.PREOP_ITS ---
General Info Date of Service Date Performed: 03/04/23 Height: 5 ft 2 in Weight: 97.7 kg Body Mass Index (BMI): 39.4 Surgical Procedure: Operation Date: 03/04/23 11:25 Proposed Procedure Side Surgeon p Septoplasty Lan Dang MD Meds Allergies and Home Medications Allergies Allergy/AdvReac Type Severity Reaction Status Date / Time insect venom Allergy Severe Anaphylaxsi Verified 03/04/23 09:23 s buspirone HCl [From BuSpar] AdvReac HEADACHES Verified 03/04/23 09:23 oxycodone AdvReac SYNCOPE Verified 03/04/23 09:23 Home Medication Medication Instructions Recorded epinephrine 0.3 mg/0.3 mL 0.3 mg (0.3 mL) IM ONCE #1 ea 12/08/21 injection, auto-injector (EpiPen) acyclovir 800 mg tablet 800 mg PO .COMPLEX PRN cold sores 12/15/21 #35 tabs potassium chloride 20 mEq 20 meq PO DAILY #90 tabs 03/09/22 tablet,extended release inhalational spacing device #1 ea 03/21/22 (Aerochamber MV spacer) budesonide-formoterol HFA 80 2 puff inhalation BID #30.6 grams 06/14/22 mcg-4.5 mcg/actuation aerosol inhaler (Symbicort) Flovent HFA 110 mcg/actuation 2 puff inhalation BID PRN asthma 06/26/22 aerosol inhaler (fluticasone #12 grams propionate) triamcinolone acetonide 0.5 % 1 applic topical BID PRN rash on 06/29/22 topical cream (Triderm) abdomen #80 grams omeprazole 20 mg capsule,delayed 20 mg PO BID #60 caps 08/08/22 release citalopram 20 mg tablet 20 mg PO DAILY #90 tabs 08/20/22 ergocalciferol (vitamin D2) 1,250 1,250 mcg PO QWEEK #14 caps 09/05/22 mcg (50,000 unit) capsule (Vitamin D2) celecoxib 100 mg capsule 100 mg PO DAILY #90 caps 09/20/22 pregabalin 50 mg capsule 50 mg PO BID #180 caps 10/08/22 hydrochlorothiazide 12.5 mg capsule 12.5 mg PO QAM #90 caps 12/31/22 mirabegron 50 mg tablet,extended 50 mg PO DAILY #90 tabs 12/31/22 release 24 hr (Myrbetriq) semaglutide 1 mg/dose (4 mg/3 mL) 1 mg (0.75 mL) subcut QWEEK #12 mL 01/09/23 subcutaneous pen injector nystatin 100,000 unit/gram topical 1 applic topical BID PRN yeast #60 02/04/23 powder grams prednisone 10 mg tablet 10 mg PO DAILY PRN arthralgia #10 02/04/23 tabs albuterol sulfate 90 mcg/actuation 2 puff inhalation Q6H PRN 02/20/23 aerosol inhaler bronchospasm #18 grams ferrous gluconate 324 mg (38 mg 324 mg PO BID #180 tabs 02/20/23 iron) tablet Current Visit Medications: Current Medications Generic Name Dose Route Start Last Admin Trade Name Freq PRN Reason Stop Dose Admin Ringer's Solution 1,000 mls @ 80 mls/hr 03/04/23 06:00 IV 03/04/23 23:59 INFUSION BONNIE Cefazolin Sodium/Dextrose 2 gm in 50 mls @ 100 mls/hr 03/04/23 06:00 Ancef Duplex IVPB 03/04/23 16:00 PREOP BONNIE Tranexamic Acid 1,000 mg/ 60 mls @ 360 mls/hr 03/04/23 06:00 Sodium Chloride IVPB 03/04/23 16:00 DIRECTED [facility] IV Miscellaneous Supplies 1 each 03/04/23 06:00 Iv Access IV 03/04/23 23:59 DIRECTED BONNIE Sodium Chloride 0 ml 03/04/23 06:00 Normal Saline Flush 10 Ml Syr IV 03/04/23 23:59 PRN PRN Sodium Chloride 0 ml 03/04/23 06:00 Normal Saline 10 Ml Vial IJ 03/04/23 23:59 DIRECTED PRN Sterile Water 0 ml 03/04/23 06:00 Water,Injection,Sterile 10 Ml Vial IJ 03/04/23 23:59 DIRECTED PRN PFSH Active Problems Active Problems: Problem Status Onset Code Nasal obstruction J34.89 Depressive disorder F32.9 Anxiety F41.9 Degeneration of intervertebral disc of lumbar region M51.36 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 Cochran Diabetes mellitus Diverticula of colon Elevated serum creatinine Fibromyalgia Gastroesophageal reflux disease with esophagitis (07/05/07) EGD 08/08 Perez's Repeat EGD 2024 2007 EGD showed gastritis and esophagitis Herpes simplex Hiatal hernia Indigestion w/ abdominal pain and reflux, normal U/S; hiatal hernia w/ possible Schatzki ring. She had fundal gastric diverticula Hyperlipidemia (04/18/05) elevated triglycerides Insomnia (12/05/16) Neuropathy (01/07/17) Overactive bladder PONV (postoperative nausea and vomiting) Sciatica left; L5-S1 herniation; MRI 2001; repeat 03/22-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 S/P disc surgery 2003 Trigger point of right shoulder region Urinary bladder incontinence Vaginal atrophy (11/04/17) Vitamin D deficiency Surgical History Surgical History EGD - MAC (~07/28/21) 05/2007 History of back surgery herniated disc, L5,S2 History of bilateral ligation of fallopian tubes History of colonoscopy (~06/03/20) History of esophagogastroduodenoscopy History of spinal surgery Hx of colposcopy with cervical biopsy 10/2021. Pap ASCUS. + HPV. Colpo directed bx: Neg dysplasia. Pt will begin Gardisil 9 series. Ligation of fallopian tube S/P laparoscopic cholecystectomy Tobacco Smoking/Tobacco Use Status: Never Passive smoking exposure: No Second hand exposure: Yes Alcohol Alcohol Intake: current Alcohol intake frequency: a few times a month Alcohol type: wine Substance Use Substance use: Never Substance use type: does not use Prental History History 5 Para Hx # Term Pregnancies 3 Multiple births Hx # Pregnancies Ectopic pregnancies AB induced Hx Number of Living Children AB spontaneous Vital Signs and Lab Results Vital Signs Most Recent Vital Signs in EMR: Most Recent Vital Signs Temp Pulse Resp BP Pulse Ox 36.5 C 78 18 136/71 96 03/04/23 08:55 03/04/23 08:55 03/04/23 08:55 03/04/23 08:55 03/04/23 08:55 Lab Results Blood Type / Crossmatch: No Data to Display Complete Blood Count: No Data to Display Complete Metabolic Panel: No Data to Display Liver Function Panel: No Data to Display Coagulation Panel: No Data to Display Cardiac Panel: No Data to Display Arterial Blood Gas: No Data to Display Venous Blood Gas: No Data to Display Pancreas Panel: No Data to Display Thyroid Panel: No Data to Display Infectious Disease: No Data to Display Blood Cultures: No Data to Display Toxicology Panel: No Data to Display Panel: No Data to Display Imaging and Studies Imaging and Studies Study information below may be from another EMR and interpreted by another provider. Please see original notes in EMR for more complete details. Stress Test Summary: DATE OF SERVICE: 08/10/19 Exam: Exercise Treadmill Indications: Patient reports intermittent chest heaviness and right chest ???tingling??? for the last ???couple of months???. Of note patient???s signi ficant other approximately 6 months ago. Stress ECG Conclusion 1. Patient exercised for 9 minutes (10 METS). Rate-pressure product was 22,000. 2. Patient had no symptoms suggestive of ischemia. 3. There was no evidence of ischemia on the ECG portion of the exam at this level of stress. 4. The Ansari Score (8) estimates an annual cardiovascular mortality of 0% and a five year survival of 95%. Using the Ansari Score there is a low probability of any angiographic coronary disease. Echocardiogram Summary: Date of Exam: 07/12/19ex: F Admission Date: 07/12/19 : 1970 Age: 48 Exam(s) a US:US echocardiogram APPROVED REPORT EXAM: Comprehensive 2D, Doppler, and color-flow Echocardiogram Patient Location: Out-Patient Contract Law Specialist: Evie Zafar RDCS (AE) Indications: Fatigue, Chest pain Conclusion Left Ventricle : The left ventricle is normal size. The left ventricular systolic function is normal. The left ventricular ejection fraction is within the normal range. There is normal left ventricular wall thickness. There is normal LV segmental wall motion. The left ventricular diastolic function is normal. LVEF is 65-70%. Right Ventricle : The right ventricle is normal size. The right ventricular systolic function is normal. Atria : The left atrium size is normal. The right atrium size is normal. Aortic Valve : Aortic valve is trileaflet. No aortic regurgitation is present. Mitral Valve : The mitral valve is normal in structure. Trace mitral regurgitation. No evidence of mitral valve stenosis. Great Vessels : The IVC was not visualized. There is no prior echocardiogram available for comparison. Pulmonary Function Summary: PULMONARY FUNCTION TEST REPORT DATE OF SERVICE: July 01, 2019 REQUESTING PROVIDER: Saba Christopher M.D. Spirometry shows no evidence of obstructive airways disease, no bronchodilator response. Lung volumes show no evidence of restriction. Diffusion capacity normal. Airways resistance normal. IMPRESSION: Normal pulmonary function study. Clinical correlation recommended. Anesthesia Assessment and Plan Anesthesia History Personal History: PONV Family History: No Family History of Anesthesia Complications Exercise Tolerance Exercise Tolerance: Metabolic Equivalents>4 Pertinent Negatives Pertinent Negatives: No Symptoms of GERD Cardiac & Pulmonary Exam Cardiac Exam: Normal S1/S2 Heart Sounds Pulmonary Exam: Clear Bilateral Breath Sounds Implantable Cardiac Device Does patient have a Pacemaker or an ICD?: No Airway Exam Known Difficult Airway: No Mallampati Class: 2 Mouth Opening: Normal (> 3cm) Thyromental Distance: Greater than 3 cm Neck Range of Motion: Full ROM Neck Circumference: Normal Teeth Condition: Normal Dentition ASA Classification ASA Score: ASA 3 Emergency Case?: No NPO Status NPO Status: NPO Clears >2 hours, Solids >8 hours Status Status: Not Relevant due to Medical History Anesthesia Plan Resuscitation Status: Full Code Anesthesia Technique: General Anesthesia Airway Planned: Endotracheal Tube Monitors Used: Standard Monitors Preoperative Comments:: Last two anesthetics were a gastroscopy and a colonoscopy respectively. Anesthetic prior was a lap choley with GETA: [place] 3 CL 1 7.0 ETT. Easy intubation. Glycopyrrolate for bradycardia during that case. PMH: GERD with Perez's esophagus (Omeprazole), Hiatal hernia, PONV, Asthma (albuterol), Anxiety (citalopram). Patient stopped her Semaglutide three weeks ago.
[2023-03-04] MEDS: Lactated Ringers 1,000 ML 80 ML IV (10:25)
--- NOTE | 2023-03-04 10:51 | W.PM.DSUDISC ---
Date of service: 03/04/23 Time of Service: 10:51 Discharge Plan Disposition Patient Disposition: Home Condition: Good Discharge Details Reason For Visit: Septoplasty, inferior turbinoplasty Attending Provider: Lan Dang Primary Care Provider: Saba Christopher Home Meds and New Rx's Prescriptions: New cephalexin 500 mg capsule 500 mg PO TID 7 Days Qty: 21 0RF Discontinued semaglutide 1 mg/dose (4 mg/3 mL) pen injector 1 mg subcut QWEEK Qty: 12 4RF No Action epinephrine [EpiPen] 0.3 mg/0.3 mL auto-injector 0.3 mg IM ONCE Qty: 1 0RF acyclovir 800 mg tablet 800 mg PO .COMPLEX PRN (Reason: cold sores) Qty: 35 2RF Rx Instructions: 800 mg PO 5 times per day; while awake; give 5 doses in 24 hours PRN; potassium chloride 20 mEq tablet extended release 20 meq PO DAILY Qty: 90 5RF (DME) Aerochamber MV Spacer See Rx Instructions .ROUTE .MEDSUPPLY Qty: 1 0RF Rx Instructions: As directed budesonide-formoterol [Symbicort] 80-4.5 mcg/actuation HFA aerosol inhaler 2 puff IH BID Qty: 30.6 3RF fluticasone propionate [Flovent HFA] 110 mcg/actuation HFA aerosol inhaler 2 puff inhalation BID PRN (Reason: asthma) Qty: 12 3RF triamcinolone acetonide [Triderm] 0.5 % cream 1 applic TP BID PRN (Reason: rash on abdomen) Qty: 80 2RF Rx Instructions: 80gram tube. Perrigo Brand omeprazole 20 mg capsule,delayed release(DR/EC) 20 mg PO BID Qty: 60 12RF citalopram 20 mg tablet 20 mg PO DAILY Qty: 90 4RF ergocalciferol (vitamin D2) [Vitamin D2] 1,250 mcg (50,000 unit) capsule 1,250 mcg PO QWEEK Qty: 14 1RF celecoxib 100 mg capsule 100 mg PO DAILY Qty: 90 1RF pregabalin 50 mg capsule 50 mg PO BID Qty: 180 4RF Myrbetriq 50 mg tablet extended release 24 hr 50 mg PO DAILY Qty: 90 3RF hydrochlorothiazide 12.5 mg capsule 12.5 mg PO QAM Qty: 90 3RF nystatin 100,000 unit/gram powder 1 applic TP BID PRN (Reason: yeast) Qty: 60 5RF prednisone 10 mg tablet 10 mg PO DAILY PRN (Reason: arthralgia) Qty: 10 0RF Patient Comments: PRN not currently taking ferrous gluconate 324 mg (38 mg iron) tablet 324 mg PO BID Qty: 180 3RF Rx Instructions: take with vitamin c - 250mg albuterol sulfate 90 mcg/actuation HFA aerosol inhaler 2 puff IH Q6H PRN (Reason: bronchospasm) Qty: 18 11RF Discharge Instructions Additional Instructions: My cell phone number is [phone]. Please call with any questions or concerns. If you are unable to reach me and you feel it is an emergency, please dial 911 or proceed to the emergency room. Stand Alone Forms: ENT-Septo Instr. [place] Referrals: Lan Dang MD [ [facility] STAFF PHYSICIAN] - (, 7:30 AM, 03/07/2023, [facility]) Discharge Orders Discharge Orders: Discharge Order (Routine); Ordered 03/04/23 Ordered By: Lan Dang
[2023-03-04] MEDS: ceFAZolin 2 GM/50 ML BAG IVPB (11:03)
[2023-03-04] MEDS: Lidocaine 1.5 % Pres-Free W/EPI 1/200,000 30 ML VIAL (11:19)
[2023-03-04] MEDS: Cocaine Nasal 4% 4 ML BTL (11:25)
--- NOTE | 2023-03-04 11:39 | NASSEP_PTH ---
PATIENT: Nelda Robison LOC: [facility] U#:[id number] AGE/SX: 52/F ROOM: RE03/04/[address]: Lan Dang MD : 1970 BED: DIS: 03/04/2023 SPEC #: [id number] RECD: 03/04/23 12:52 STATUS: AILEENJaye REQ #: [id number] AMADEO: 03/04/23 11:[address]: Lan Dang DEPT: Surgical Specimen RECD BY: Ale Esparza ENTERED: 03/04/23 12:53 SP TYPE: NASSEP OTHR DR: Saba Christopher MD, DC Tissues: 1 - NASAL SEPTUM Procedures: GROSS LEVEL 1 Comments: [id number]
--- NOTE | 2023-03-04 12:00 | ROE_ITS ---
Date of service: 03/04/23 Time of Service: 12:00 Operative Note Operative Note DATE OF PROCEDURE: 03/04/23 PRE-OP DIAGNOSIS: Deviated nasal septum, inferior turbinate hypertrophy POST-OP DIAGNOSIS: same PROCEDURE: Septoplasty, bilateral cautery inferior turbinate reductions with lateralization SURGEON: Lan Dang ANESTHESIA TYPE: General LMA/ETT Refer to Anesthesia Record ESTIMATED BLOOD LOSS: 50 PATHOLOGY: other (Septal cartilage) COMPLICATIONS: None Patient was transported to: PACU Patient's condition: stable Implants: Pittman splints Indications: The patient has had chronic left-sided nasal obstruction that is medically recalcitrant. Options were explained to the patient regarding further management. She elected to undergo the procedure. Consent was filled out and signed prior to surgery. Findings: Markedly deviated quadrangular cartilage, large septal spur to the posterior aspect, the patient appears to have an intrinsically narrow anterior nasal vault on the left. Procedure Description: After obtaining an adequate level of general endotracheal anesthesia the patient was positioned in supine position and prepped and draped in appropriate fashion. 1% lidocaine with 1/100,000 epinephrine was injected in the inferior turbinates bilaterally as well as into the septum bilaterally. Cocaine soaked nasal pledgets placed in the nasal cavity left for 5 minutes. A left-sided h emitransfixion incision was made and submucoperichondrial planes were developed along the left, and then also developed along the right taking care not to damage the overlying mucosa. The deviated quadrangular cartilage was removed leaving a strong dorsal and columellar strut. Examination however revealed that anteriorly and the nasal vault narrowed significantly on the left as the septum went posteriorly. This did not have a spur component to it posteriorly, a large spur to the left was removed, with the resulting linear tear in the mucosa on the left, but no matching tear on the right. This did not extend anteriorly. With this removed, after ensuring adequate hemostasis, the inferior turbinates were next approached. These were found to largely be mucosally redundant. As such, electrocautery suction tip catheter set on 15 W coagulation was used to ablate the inferior edge of the turbinates as well as the redundant medial inferior mucosa of the inferior turbinates. The turbinates were then lateralized using a [place] elevator. This resulted in marked improvement of the airway on the right, but only limited improvement of the airway on the left secondary to this nasal vault deformity. I could not figure out a way to better improve her nasal airway on the left further than I already had. As such, after ensuring adequate hemostasis, the hemitransfixion incision was closed with four- point 0 chromic sutures in interrupted fashion and Pittman splints were placed along the septum bilaterally. Because of the narrow nature of the left nasal vault, the cannulated portion of the Pittman splint was excised. Care was taken to make sure that the mucosal edges of the linear tear posteriorly were approximated These were then sutured into place using a three-point 0 Prolene suture. The patient was then awakened and extubated by anesthesia and taken the recovery room in stable condition. I was present throughout the entire case.
[2023-03-04] MEDS: fentaNYL 100 MCG/2 ML VIAL IVP ×2 (12:32→12:43)
--- NOTE | 2023-03-04 12:35 | ANES.POST_ITS ---
Postoperative Evaluation Date, Time and Location Date Performed: 03/04/23 Time Performed: 12:36 Patient Location: Day Surgery Unit Vital Signs Most Recent Imported Vital Signs: Most Recent Vital Signs Temp Pulse Resp BP Pulse Ox 36.3 C L 72 14 150/79 H 99 03/04/23 12:05 03/04/23 12:20 03/04/23 12:20 03/04/23 12:20 03/04/23 12:20 Pain Score Most Recent Pain Score: Most Recent Pain Score Pain Level 4 03/04/23 12:20 Assessment Mental Status: Awake (Alert & Oriented to Patient Baseline) Airway and Respiratory Function: Patent airway with normal (patient baseline) respiratory exam Cardiovascular Function: Hemodynamically Stable Hydration Status: Adequately Hydrated Nausea & Vomiting: No Nausea or Vomiting Pain: Pain is tolerable per patient (medicated by [employer] SET UP OPERATOR) Peripheral Nerve Block: Patient did not receive a nerve block
--- NOTE | 2023-03-04 13:11 | PDOC.DSDIS_ITS ---
Date of service: 03/04/23 Time of Service: 11:00 Discharge Plan Disposition Patient Disposition: Home Condition: Good Discharge Details Reason For Visit: Septoplasty, inferior turbinoplasty Attending Provider: Lan Dang Primary Care Provider: Saba Christopher Home Meds and New Rx's Prescriptions: New cephalexin 500 mg capsule 500 mg PO TID 7 Days Qty: 21 0RF Discontinued semaglutide 1 mg/dose (4 mg/3 mL) pen injector 1 mg subcut QWEEK Qty: 12 4RF No Action epinephrine [EpiPen] 0.3 mg/0.3 mL auto-injector 0.3 mg IM ONCE Qty: 1 0RF acyclovir 800 mg tablet 800 mg PO .COMPLEX PRN (Reason: cold sores) Qty: 35 2RF Rx Instructions: 800 mg PO 5 times per day; while awake; give 5 doses in 24 hours PRN; potassium chloride 20 mEq tablet extended release 20 meq PO DAILY Qty: 90 5RF (DME) Aerochamber MV Spacer See Rx Instructions .ROUTE .MEDSUPPLY Qty: 1 0RF Rx Instructions: As directed budesonide-formoterol [Symbicort] 80-4.5 mcg/actuation HFA aerosol inhaler 2 puff IH BID Qty: 30.6 3RF fluticasone propionate [Flovent HFA] 110 mcg/actuation HFA aerosol inhaler 2 puff inhalation BID PRN (Reason: asthma) Qty: 12 3RF triamcinolone acetonide [Triderm] 0.5 % cream 1 applic TP BID PRN (Reason: rash on abdomen) Qty: 80 2RF Rx Instructions: 80gram tube. Perrigo Brand omeprazole 20 mg capsule,delayed release(DR/EC) 20 mg PO BID Qty: 60 12RF citalopram 20 mg tablet 20 mg PO DAILY Qty: 90 4RF ergocalciferol (vitamin D2) [Vitamin D2] 1,250 mcg (50,000 unit) capsule 1,250 mcg PO QWEEK Qty: 14 1RF celecoxib 100 mg capsule 100 mg PO DAILY Qty: 90 1RF pregabalin 50 mg capsule 50 mg PO BID Qty: 180 4RF Myrbetriq 50 mg tablet extended release 24 hr 50 mg PO DAILY Qty: 90 3RF hydrochlorothiazide 12.5 mg capsule 12.5 mg PO QAM Qty: 90 3RF nystatin 100,000 unit/gram powder 1 applic TP BID PRN (Reason: yeast) Qty: 60 5RF prednisone 10 mg tablet 10 mg PO DAILY PRN (Reason: arthralgia) Qty: 10 0RF Patient Comments: PRN not currently taking ferrous gluconate 324 mg (38 mg iron) tablet 324 mg PO BID Qty: 180 3RF Rx Instructions: take with vitamin c - 250mg albuterol sulfate 90 mcg/actuation HFA aerosol inhaler 2 puff IH Q6H PRN (Reason: bronchospasm) Qty: 18 11RF Discharge Instructions Additional Instructions: My cell phone number is [phone]. Please call with any questions or concerns. If you are unable to reach me and you feel it is an emergency, please dial 911 or proceed to the emergency room. Stand Alone Forms: Anesthesia Discharge Inst., Alex Figueroa ([facility]), ENT-Septo Instr. [place] Referrals: Lan Dang MD [ [facility] STAFF PHYSICIAN] - (, 7:30 AM, 03/07/2023, [facility]) Discharge Orders Discharge Orders: Discharge Order (Routine); Ordered 03/04/23 Ordered By: Lan Dang Discharge Data Discharge Date/Time-TO BE ENTERED AT DEPARTURE: 03/04/23 14:12
[2023-03-04] MEDS: Ibuprofen 600 MG TAB PO (13:15)
== END 2023-03-04 14:12 | disposition home or self-care (01) ==
PROVIDERS: PCP Family Medicine; Visit Provider Otolaryngology
PROC: (CPT 30520; principal; 2023-03-04 11:15)
DX: J34.2 Deviated nasal septum (principal); J34.3 Hypertrophy of nasal turbinates; J34.89 Other specified disorders of nose and nasal sinuses
CPT/HCPCS: 30520; 30130; 88300; J0131; J0690; J1100; J2001; J2250; J2405; J2704; J3010

== ENCOUNTER 2023-04-30 12:36 | Outpatient (CLI) | payer OTHER, MEDICAID, SELFPAY ==
[2023-04-30 09:33] LABS: Hemoglobin A1C 5.5 % (<5.7)
[2023-04-30 10:20] LABS: ALT 44 U/L (14-59); AST 24 U/L (15-37); Albumin 3.7 g/dL (3.4-5.0); Alkaline Phosphatase 58 U/L (46-116); Anion Gap 9.6 mmol/L (3-11); BUN 14 mg/dL (7-18); Bilirubin, Total 0.3 mg/dL (0.2-1.0); CO2 26.4 mmol/L (21.0-32.0); Calcium 9.3 mg/dL (8.5-10.1); Calculated LDL 90 mg/dL (<100); Chloride 102 mmol/L (98-107); Cholesterol 178 mg/dL (<200); Estimated GFR 66.95 (mL/min/1.73m2); Glucose 162 mg/dL (74-106); HDL Cholesterol 41 mg/dL (40-60); Potassium 3.7 mmol/L (3.5-5.1); Sodium 138 mmol/L (136-145); Total Protein 7.6 g/dL (6.4-8.2); Triglyceride 239 mg/dL (<150)
== END 2023-04-30 12:37 | disposition home or self-care (01) ==
LOC: LBO 12:36
PROVIDERS: PCP Family Medicine; Visit Provider Family Medicine
DX: I10 Essential (primary) hypertension (principal); E11.9 Type 2 diabetes mellitus without complications
CPT/HCPCS: 36415; 80053; 80061; 83036

== ENCOUNTER 2023-05-17 10:23 | Outpatient (REF) | payer OTHER, MEDICAID, SELFPAY ==
[2023-05-17 12:56] LABS: Bilirubin Negative (Negative); Blood Negative (Negative); Clarity Clear (Clear); Glucose Negative (Negative); Ketones Negative (Negative); Leukocyte Esterase Negative (Negative); Nitrite Negative (Negative); Specific Gravity 1.025 (1.005-1.025); Urobilinogen 0.2 mg/dL (Up to 0.2); pH 5.5 (5-8)
== END 2023-05-17 10:24 | disposition home or self-care (01) ==
LOC: LBN 10:23
PROVIDERS: PCP Family Medicine; Visit Provider Obstetrics & Gynecology
DX: R30.0 Dysuria (principal)
CPT/HCPCS: 81003

== ENCOUNTER 2023-11-06 11:51 | Outpatient (REF) | payer OTHER, MEDICAID, SELFPAY ==
--- NOTE | 2023-11-06 11:30 | PAPFT_PTH ---
PATIENT: Nelda Robison LOC: [facility] U#:[id number] AGE/SX: 53/F ROOM: RE11/06/[address]: Sophia Alvarez NP : 1970 BED: DIS: 11/06/2023 SPEC #: [id number] RECD: 11/06/23 13:41 STATUS: BARBARA REYES #: [id number] AMADEO: 11/06/23 11:[address]: Sophia Alvarez NP DEPT: [facility] Cytology RECD BY: Ale Esparza ENTERED: 11/06/23 13:42 SP TYPE: PAPFT OTHR DR: Saba Christopher MD, DC Tissues: 1 - CX/ENDOCX FOR PAP SMEARS Procedures: PAP THIN PREP/[facility] Screening HPV DNA PROBE Comments: [id number] (HPV 16 & 18/45)
== END 2023-11-06 11:52 | disposition home or self-care (01) ==
LOC: LBN 11:51
PROVIDERS: PCP Family Medicine; Visit Provider Nurse Practitioner Women's Health
DX: Z12.4 Encounter for screening for malignant neoplasm of cervix (principal)
CPT/HCPCS: 88142; 87624

== ENCOUNTER 2023-11-20 16:29 | Outpatient (REF) | payer OTHER, MEDICAID, SELFPAY ==
--- NOTE | 2023-11-20 16:20 | CER_PTH ---
PATIENT: Nelda Robison LOC: [facility] U#:[id number] AGE/SX: 53/F ROOM: RE11/20/[address]: Felicitas Russo MD : 1970 BED: DIS: 11/20/2023 SPEC #: [id number] RECD: 11/20/23 17:26 STATUS: BARBARA REYES #: [id number] AMADEO: 11/20/23 16:[address]: Felicitas Russo DEPT: Surgical Specimen RECD BY: Ale Esparza ENTERED: 11/20/23 17:27 SP TYPE: CER CAMMY DR: Saba Christopher MD, DC Tissues: 1 - CERVICAL BIOPSY 2 - ENDOCERVICAL BX/CURRETTE Procedures: GROSS AND MICRO LEVEL 4 Comments: [id number] (SAMPLE #2 - NO TISSUE PRESENT IN CONTAINER)
== END 2023-11-20 16:30 | disposition home or self-care (01) ==
LOC: LBN 16:29
PROVIDERS: PCP Family Medicine; Visit Provider Obstetrics & Gynecology
DX: R87.619 Unspecified abnormal cytological findings in specimens from cervix uteri (principal); R87.613 High grade squamous intraepithelial lesion on cytologic smear of cervix (HGSIL)
CPT/HCPCS: 88305

== ENCOUNTER → 2023-12-13 00:30 | Outpatient (CLI) | payer OTHER, MEDICAID, SELFPAY ==
--- NOTE | 2023-12-13 07:45 | DI.MAMMO_ITS ---
Exam(s) MAMMO SCREENING EXAM: MAMMO SCREENING CLINICAL HISTORY: screening,z12.39 TECHNIQUE: Bilateral full field digital CC and MLO mammographic images were obtained with 3D tomosyn thesis and utilizing computer aided detection (CAD). COMPARISON: Available for comparison. FINDINGS: Masses/Architectural Distortion: None seen. Microcalcifications: No suspicious pleomorphic-type are seen. Skin Thickening/Nipple Retraction: None. IMPRESSION: 1. No significant interval change with no specific features of malignancy noted. 2. Unless there is more urgent need, screening mammography is recommended, as per [employer] guidelines. BI-RADS Category 1 - Negative Breast Density - Category B - Scattered areas of fibroglandular density Breast density category C or D implies that the patient has dense breast tissue. Dense breast tissue is very common and is not abnormal but dense breast tissue can make it harder to find cancer on a ma mmogram. Also, dense breast tissue may increase their breast cancer risk. This information about the result of the mammogram report was provided to the patient to raise their awareness. Use this report when you speak with the patient about their risks for breast cancer, which includes their family hist ory. At that time, you may recommend for more screening tests (Ultrasound or MRI) as they might be us eful based on their risk. A negative radiographic report should not delay biopsy if a dominant or clinically suspicious mass is present. Up to ten percent of cancers are not identified on mammography. A negative report may reinforce clinical impression. Adenosis and dense breasts may obscure an underlying neoplasm. False positive reports average 6 to 10%. Patient will receive a letter notifying them of these results.
== END ==
PROVIDERS: PCP Family Medicine; Visit Provider Nurse Practitioner Women's Health
DX: Z12.39 Encounter for other screening for malignant neoplasm of breast (principal)
CPT/HCPCS: 77063; 77067

== ENCOUNTER 2023-12-17 12:25 | Outpatient (REF) | payer OTHER, MEDICAID, SELFPAY ==
--- NOTE | 2023-12-17 12:17 | CER_PTH ---
PATIENT: Nelda Robison LOC: [facility] U#:[id number] AGE/SX: 53/F ROOM: RE12/17/[address]: Felicitas Russo MD : 1970 BED: DIS: 12/17/2023 SPEC #: [id number] RECD: 12/17/23 16:58 STATUS: BARBARA REElen #: [id number] AMADEO: 12/17/23 12:[address]: Felicitas Russo DEPT: Surgical Specimen RECD BY: Ale Esparza ENTERED: 12/17/23 17:05 SP TYPE: CER OTHR DR: Saba Christopher MD, DC Tissues: 1 - CERVICAL BIOPSY Procedures: GROSS AND MICRO LEVEL 5 Comments: [id number]
== END 2023-12-17 12:26 | disposition home or self-care (01) ==
LOC: LBN 12:25
PROVIDERS: PCP Family Medicine; Visit Provider Obstetrics & Gynecology
DX: Z98.890 Other specified postprocedural states (principal); R87.613 High grade squamous intraepithelial lesion on cytologic smear of cervix (HGSIL)
CPT/HCPCS: 88305; 88307

== ENCOUNTER 2024-03-11 01:55 | Outpatient (CLI) | payer OTHER, MEDICAID, SELFPAY ==
--- NOTE | 2024-03-11 06:30 | DI.RAD_ITS ---
Exam(s) XR FOOT RT COMPLETE EXAM: XR FOOT RT COMPLETE CLINICAL HISTORY: Right foot pain,M79.671. TECHNIQUE: 2D digital imaging was performed of the right foot. Three images were obtained. AP, obl ique and lateral views were obtained. COMPARISON: CR XR FOOT RT LIMITED from 12/14/2019 FINDINGS: BONES: No acute fracture is present. No bony destructive lesion is seen. There is small enthesophyte at the posterior calcaneus. JOINTS: No dislocation present. Mild joint space narrowing and spurring is seen at the 1st MTP joint. SOFT TISSUE: Normal. IMPRESSION: Mild degenerative changes seen at the 1st MTP joint. DATA REPOSITORY: RADIATION DOSE DELIVERED:
== END 2024-03-11 02:15 ==
LOC: DI 01:56
PROVIDERS: PCP Family Medicine; Visit Provider Podiatrist
DX: M19.071 Primary osteoarthritis, right ankle and foot (principal)
CPT/HCPCS: 73630

== ENCOUNTER 2024-07-10 08:28 | Outpatient (CLI) | payer OTHER, MEDICAID, SELFPAY ==
[2024-07-10 08:09] LABS: HCT 40.2 % (36.0-46.0); HGB 13.3 g/dL (11.2-15.7); MCH 29.8 pg (27.0-33.0); MCHC 33.1 % (32.0-36.0); MCV 90 fL (80-95); MPV 8.4 fL (8.0-11.0); Platelet Count 321 10^3/uL (130-400); RBC 4.47 10^6/uL (3.93-5.22); RDW 13.9 % (11.7-14.6); RDW-SD 45.3 fL; WBC 4.75 10^3/uL (4.4-10.8)
[2024-07-10 08:22] LABS: Hemoglobin A1C 6.1 % (<5.7)
[2024-07-10 08:52] LABS: Ferritin 43 ng/mL (8-252); TSH (W/Ref FT4) 1.51 uIU/mL (0.36-3.74); Vitamin B12 441 pg/mL (193-986)
[2024-07-10 09:04] LABS: Iron 60 ug/dL (50-170)
== END 2024-07-10 08:29 | disposition home or self-care (01) ==
LOC: LBO 08:30
PROVIDERS: PCP Family Medicine; Visit Provider Family Medicine
DX: D50.9 Iron deficiency anemia, unspecified (principal); E53.8 Deficiency of other specified B group vitamins; E03.9 Hypothyroidism, unspecified; E11.9 Type 2 diabetes mellitus without complications
CPT/HCPCS: 36415; 85027; 82607; 82728; 83036; 83540; 84443

== ENCOUNTER 2024-10-06 06:18 | Day surgery (SDC) | payer OTHER, MEDICAID, SELFPAY ==
[2024-10-06 06:34] VITALS: BP 129/90; PULSE 73; RESP 14; TEMP 36.5; O2SAT 98
[2024-10-06] MEDS: Cephalexin 500 MG CAP 1000 MG PO (06:46)
--- NOTE | 2024-10-06 07:07 | PDOC.DSDIS_ITS ---
Date of service: 10/06/24 Discharge Plan Disposition Patient Disposition: Home Condition: Good Discharge Details Reason For Visit: Right carpal tunnel syndrome Attending Provider: Sancho Wiggins Primary Care Provider: Saba Christopher Home Meds and New Rx's Prescriptions: New hydrocodone-acetaminophen 5-325 mg tablet 1 tab PO Q6H PRN (Reason: severe pain) Qty: 3 0RF Rx Instructions: Take one tablet up to every 6 hours as needed for severe postoperative pain Continued nystatin 100,000 unit/gram powder 1 applic TP BID PRN (Reason: yeast) Qty: 60 5RF albuterol sulfate 90 mcg/actuation HFA aerosol inhaler 2 puff IH Q6H PRN (Reason: bronchospasm) Qty: 18 11RF benzonatate 100 mg capsule 100 - 200 mg PO TID PRN (Reason: cough) Qty: 60 0RF Rx Instructions: Take 1-2 capsules by mouth three times a day as needed for cough citalopram 20 mg tablet 20 mg PO DAILY Qty: 90 4RF acyclovir 800 mg tablet 800 mg PO .COMPLEX PRN (Reason: cold sores) Qty: 35 2RF Rx Instructions: 800 mg PO 5 times per day; while awake; give 5 doses in 24 hours PRN; ok to fill with 400mg tabs @2 tabs - 5times/day epinephrine [EpiPen] 0.3 mg/0.3 mL auto-injector 0.3 mg IM ONCE Qty: 1 0RF mirabegron [Myrbetriq] 50 mg tablet extended release 24 hr 50 mg PO DAILY Qty: 90 3RF hydrochlorothiazide 12.5 mg capsule 12.5 mg PO QAM Qty: 90 3RF triamcinolone acetonide [Triderm] 0.5 % cream 1 applic TP BID PRN (Reason: rash on abdomen) Qty: 80 2RF Rx Instructions: 80gram tube. Perrigo Brand celecoxib 100 mg capsule 100 mg PO DAILY Qty: 90 1RF potassium chloride 20 mEq tablet extended release 20 meq PO DAILY Qty: 90 5RF omeprazole 40 mg capsule,delayed release(DR/EC) 40 mg PO BID Qty: 90 12RF tirzepatide (weight loss) 5 mg/0.5 mL pen injector 5 mg subcut QWEEK Qty: 8 4RF budesonide-formoterol [Symbicort] 80-4.5 mcg/actuation HFA aerosol inhaler 2 puff IH BID Qty: 30.6 3RF Qvar RediHaler 80 mcg/actuation HFA aerosol breath activated 1 inh inhalation BID Qty: 10.6 4RF Rx Instructions: administer with spacer ferrous gluconate 324 mg (38 mg iron) tablet 324 mg PO BID Qty: 180 3RF Rx Instructions: take with vitamin c - 250mg pregabalin 50 mg capsule 50 mg PO BID Qty: 180 4RF ergocalciferol (vitamin D2) [Vitamin D2] 1,250 mcg (50,000 unit) capsule 1,250 mcg PO QMONTH Qty: 3 4RF diclofenac sodium [Arthritis Pain (diclofenac)] 1 % gel 2 g topical QID Qty: 100 4RF Rx Instructions: apply to single elbow, wrist or hand; for hand includes palm/fingers/back of hand Discharge Instructions Stand Alone Forms: Rosalie Forman Tunnel Release, Alex Figueroa ([facility]U) Referrals: Sancho Wiggins MD [ [facility]FF PHYSICIAN] - 10/16/24 11:00 am Activity:: Elevate Remove Dressings/Wound Care:: 48 hours Shower/Bathe:: 48 hours Diet:: As Tolerated Discharge Orders Discharge Orders: Discharge Order (Routine); Ordered 10/06/24 Ordered By: Maddie Carcamo
[2024-10-06] MEDS: Lidocaine 1% Multi-Dose W/EPI 1/100,000 50 ML VIAL (07:34)
[2024-10-06] MEDS: Sodium Bicarbonate 50 MEQ/50 ML VIAL (07:47)
[2024-10-06 07:54] VITALS: BP 140/87; PULSE 71; RESP 14; TEMP 36.1; O2SAT 97
--- NOTE | 2024-10-06 08:07 | W.PM.OP ---
Operative Note Operative Note PRE-OP DIAGNOSIS: Right Carpal Tunnel Syndrome POST-OP DIAGNOSIS: same PROCEDURE: Right Endoscopic Carpal Tunnel Release SURGEON: Sancho Wiggins ANESTHESIA TYPE: Local By Surgeon Refer to Anesthesia Record ESTIMATED BLOOD LOSS: 0 PATHOLOGY: none sent TOURNIQUET TIME: 5 COMPLICATIONS: None Patient was transported to: same day Patient's condition: stable Indications: I have seen Nelda in clinic for symptoms of carpal tunnel syndrome. The numbness, tingling, and pain limited function. Clinical exam findings confirmed the diagnosis of carpal tunnel syndrome. Nonoperative measures such as bracing, time, activity modifications had been tried but disability and pain persisted. I discussed carpal tunnel release with the patient. I reviewed the risks of the procedure to include, but not limited to, bleeding, infection, pain, stiffness, incomplete release, damage to nerves or vessels, persistent numbness, recurrence. Despite these risks, the patient elected to proceed. Findings: There was tightened carpal tunnel. This was dilated and released successfully with the endoscopic with increased space within the tunnel. The antebrachial fascia was released proximally freeing the median nerve at the wrist. Procedure Description: Nelda was greeted in the preoperative holding area where the correct side was identified and marked. The consent was reviewed with the patient and signed. The history and physical was updated. All questions were answered. She was taken back to the operating room. The patient was placed into the supine position on the operating room table with the right arm on an arm board. A nonsterile tourniquet was placed high onto the arm. All bony prominences were well padded. Prophylactic antibiotics in the form of Cefazolin were administered. The right arm was then prepped with Chloraprep and draped in a standard fashion with stockinette and extremity drape. A timeout to confirm correct identity, side and site, procedure, allergies, anesthesia, and medical concerns was performed. The surgical site was marked in the volar wrist creases in line with the radial border of the fourth ray. This area was anesthetized with approximately 6cc of 1% Lidocaine. The limb was then exsanguinated with an Esmarch. The skin was incised with a 15 blade, approximately 1cm. The skin only was cut and the deeper tissue was dissected bluntly with a tenotomy scissor, avoiding passing nerve and venous structures. The fascia was penetrated and opened bluntly. A two-prong skin hook was placed under this proximal fascial edge. A series of hamate finders were used to identify and dilate the carpal tunnel. Synovial elevator was used to free synovial attachments to the underside of the transverse carpal ligament. My thumb was kept in the palm to donald the distal extent of the carpal tunnel and correctly position the hand. The Microaire endoscope was inserted without difficulty and without resistance. Excellent visualization showed horizontally running fibers of the transverse carpal ligament (TCL). The distal extent of the TCL was visualized and the end of the scope palpated with the thumb. The blade was elevated and withdrawn from distal to proximal. The TCL was split into two flaps. The endoscope was reinserted to confirm complete release and any remnant ligament was incised. The scope was withdrawn and the proximal aspect of the carpal tunnel was grossly inspected and appeared release with the median nerve visible. The antebrachial fascia at the level of the wrist was then freed from the overlying skin and then the underlying median nerve with blunt dissection. This was transected longitudinally for about 3cm proximal to the wrist incision. The wound was then irrigated with easy flow of irrigant distally and proximally. The incision was closed with a single 4-0 Nylon suture. The wound was dressed with Xeroform, Gauze, Kerlix and Mj. The tourniquet was deflated with the initial dressing and held with some pressure. Blood flow returned easily to all digits with capillary refill less than 2 seconds. The patient tolerated the procedure well and was returned to the Same Day Surgery area in a stable condition suffering no known complication. Date of Procedure: 10/06/24
== END 2024-10-06 08:19 | disposition home or self-care (01) ==
PROVIDERS: PCP Family Medicine; Visit Provider Student in an Organized Health Care Education/Training Program
PROC: 01N54ZZ Release Median Nerve, Percutaneous Endoscopic Approach (ICD-10-PCS; CPT 29848; principal; 2024-10-06 07:30)
DX: G56.01 Carpal tunnel syndrome, right upper limb (principal)
CPT/HCPCS: 29848; J2004

== ENCOUNTER 2024-10-20 13:19 | Outpatient (CLI) | payer OTHER, MEDICAID, SELFPAY ==
[2024-10-20 14:10] LABS: Hemoglobin A1C 5.9 % (<5.7)
[2024-10-20 14:13] LABS: ALT 52 U/L (14-59); AST 27 U/L (15-37); Albumin 3.5 g/dL (3.4-5.0); Alkaline Phosphatase 68 U/L (46-116); Anion Gap 5.7 mmol/L (3-11); BUN 13 mg/dL (7-18); Bilirubin, Total 0.3 mg/dL (0.2-1.0); CO2 30.3 mmol/L (21.0-32.0); CREATININE 0.7 mg/dL (0.55-1.02); Calcium 9.5 mg/dL (8.5-10.1); Calculated LDL 34 mg/dL (<100); Chloride 102 mmol/L (98-107); Cholesterol 140 mg/dL (<200); Estimated GFR 101.44 (mL/min/1.73m2); Glucose 154 mg/dL (74-106); HDL Cholesterol 32 mg/dL (>or=50); Potassium 3.7 mmol/L (3.5-5.1); Sodium 138 mmol/L (136-145); TSH (W/Ref FT4) 1.14 uIU/mL (0.36-3.74); Total Protein 7.4 g/dL (6.4-8.2); Triglyceride 374 mg/dL (<150)
== END 2024-10-20 13:20 | disposition home or self-care (01) ==
LOC: LBO 13:20
PROVIDERS: PCP Family Medicine; Visit Provider Family Medicine
DX: E11.9 Type 2 diabetes mellitus without complications (principal); E03.9 Hypothyroidism, unspecified; I10 Essential (primary) hypertension
CPT/HCPCS: 36415; 80053; 80061; 83036; 84443

== ENCOUNTER 2024-11-25 13:26 | Outpatient (REF) | payer OTHER, MEDICAID, SELFPAY ==
--- NOTE | 2024-11-25 13:00 | PAPFT_PTH ---
PATIENT: Nelda Robison LOC: [facility] U#:[id number] AGE/SX: 54/F ROOM: RE11/25/[address]: Sophia Alvarez NP : 1970 BED: DIS: 11/25/2024 SPEC #: [id number] RECD: 11/25/24 16:09 STATUS: BARBARA REElen #: [id number] AMADEO: 11/25/24 13:[address]: Kim PEARSON,Sophia DEPT: [facility] Cytology RECD BY: Marybeth Vega ENTERED: 11/25/24 16:09 SP TYPE: PAPFT OTHR DR: Saba Christopher MD, DC Tissues: 1 - CX/ENDOCX FOR PAP SMEARS Procedures: PAP THIN PREP/UVM Screening HPV DNA PROBE Comments: [id number] (HPV 16 & 18/45)
== END 2024-11-25 13:27 | disposition home or self-care (01) ==
LOC: LBN 13:26
PROVIDERS: PCP Family Medicine; Visit Provider Nurse Practitioner Women's Health
DX: Z11.51 Encounter for screening for human papillomavirus (HPV) (principal); Z01.419 Encounter for gynecological examination (general) (routine) without abnormal findings
CPT/HCPCS: 87491; 87591; 88142; 87624

== ENCOUNTER 2024-12-09 09:31 | Outpatient (CLI) | payer OTHER, MEDICAID, SELFPAY ==
--- NOTE | 2024-12-09 08:45 | DI.RAD_ITS ---
Exam(s) XR WRIST RT COMPLETE EXAM: XR WRIST RT COMPLETE CLINICAL HISTORY: R WRIST PAIN. TECHNIQUE: 2D digital imaging was performed of the right wrist. Three views were obtained. PA, lateral and oblique views were obtained. COMPARISON: CR XR ARTHRITIS SERIES from 12/14/2019 FINDINGS: BONES: No acute fracture is present. No bony destructive lesion is seen. JOINTS: The carpal bones are normally aligned. There are mild degenerative changes seen at the 1st CMC joint. SOFT TISSUE: Normal. IMPRESSION: Mild degenerative changes at the 1st CMC joint. DATA REPOSITORY: RADIATION DOSE DELIVERED:
== END 2024-12-09 09:32 | disposition home or self-care (01) ==
LOC: DIORS 09:31
PROVIDERS: PCP Family Medicine; Visit Provider Physician Assistant
DX: M25.531 Pain in right wrist (principal); M18.11 Unilateral primary osteoarthritis of first carpometacarpal joint, right hand
CPT/HCPCS: 73110

== ENCOUNTER 2024-12-14 02:11 | Outpatient (CLI) | payer OTHER, MEDICAID, SELFPAY ==
--- NOTE | 2024-12-14 16:00 | DI.MAMMO_ITS ---
Exam(s) MAMMO SCREENING EXAM: MAMMO SCREENING CLINICAL HISTORY: screening, Z12.39. TECHNIQUE: Bilateral full field digital CC and MLO mammographic images were obtained with 3D tomosynthesis and utilizing computer aided detection (CAD). COMPARISON: Prior mammograms were reviewed. FINDINGS: There has been no significant change in the appearance and distribution of the fibroglandular tissue. Benign-appearing nodule at approximately 6 o'clock position of the right breast is unchanged from previous mammograms. There are no new spiculated masses nor new malignant appearing microcalcification groups. There is no significant architectural distortion nor skin thickening-retraction. IMPRESSION: Stable benign-appearing findings. No radiographic evidence of malignancy. BI-RADS Category 2 - Benign Findings Breast Density - Category B - There are scattered areas of fibroglandular density. Breast density Category C or D implies that the patient has dense breast tissue. Dense breast tissue can make it harder to find cancer on a mammogram. Dense breast tissue is also associated with an increased risk of breast cancer. This information about the result of the mammogram report was provided to the patient to raise their awareness. Use this report when you speak with the patient about their risks for breast cancer, which includes their family history. At that time, you may recommend additional screening tests (Ultrasound or MRI) as these tests may add significant information. A negative radiographic report should not delay biopsy if a dominant or clinically suspicious mass is present. Up to ten percent of cancers are not identified on mammography. A negative report may reinforce clinical impression. Adenosis and dense breasts may obscure an underlying neoplasm. False positive reports average 6 to 10%. Patient will receive a letter notifying them of these results.
== END 2024-12-14 02:31 ==
LOC: DI 02:11
PROVIDERS: PCP Family Medicine; Visit Provider Family Medicine
DX: Z12.31 Encounter for screening mammogram for malignant neoplasm of breast (principal); R92.323 Mammographic fibroglandular density, bilateral breasts
CPT/HCPCS: 77063; 77067